=== PATIENT | female | born 1950 | race Caucasian/White ===

== ENCOUNTER → 2017-10-08 09:00 | Outpatient (CLI) | payer MEDICARE, OTHER, SELFPAY ==
[2017-10-08 12:35] LABS: Basophil# 0.02 X10^3/uL; Basophil% 0.3 % (0-1); Eosinophil# 0.09 X10^3/uL; Eosinophils% 1.3 % (0-5); Hematocrit 39.3 % (37-47); Lymphocyte % 35.4 % (19-41); Mean Corp Hgb Conc 33.1 g/gl (32-36); Mean Corpuscular Hgb 30.8 pg (27.0-32.0); Mean Corpuscular Volume 93.1 fL (81-99); Mean Platelet Vol. 10.5 fl (6.2-12.0); Monocyte# 0.49 X10^3/uL; Monocyte% 6.9 % (0-10); Neutrophil # 3.96 X10^3/uL (2.7-7.7); Platelet Count 340 K/mm3 (150-450); RBC Distribution Width CV 13.4 % (11.6-14.6); RBC Distribution Width SD 44.2 fl (35.1-43.9); Red Blood Count 4.22 M/mm3 (4.2-5.4); White Blood Count 7.1 K/mm3 (4.4-11.0)
[2017-10-08 12:40] LABS: POSITIVE COUNT NO; POSITIVE DIFFERENTIAL NO; POSITIVE MORPHOLOGY NO
[2017-10-08 13:04] LABS: AST(SGOT) 20 U/L (15-37); Alanine Aminotransfer ALT/SGPT 43 U/L (13-56); Albumin, Serum 3.7 g/dL (3.2-5.0); Alkaline Phosphatase 72 U/L (45-117); Anion Gap 9 (5-15); BUN 23 mg/dL (7-18); BUN/Creat Ratio 22.8 RATIO (10-20); Calcium,Total 8.7 mg/dL (8.5-10.1); Chloride 99 mmol/L (98-107); Creatinine, Serum 1.01 mg/dL (0.55-1.02); EST Glomerular Filtration Rate 58 mL/min (>60); Est Glom Filt Rate - Afr Amer 71 mL/min (>60); Globulin 3.7 g/dL (2.2-4.2); Glucose 83 mg/dL (70-110); Potassium 3.9 mmol/L (3.5-5.1); Protein, Total 7.4 g/dL (6.4-8.2); Sodium Level 139 mmol/L (136-145); Thyroid Stim Hormone (TSH) 0.67 uIU/mL (0.358-3.74)
[2017-10-10 07:47] LABS: Hep C Antibodies <0.1 s/co ratio (0.0-0.9)
== END ==
PROVIDERS: Family Provider Family Medicine Geriatric Medicine; PCP Family Medicine Geriatric Medicine; Visit Provider Family Medicine Geriatric Medicine
DX: I10 Essential (primary) hypertension (principal); E55.9 Vitamin D deficiency, unspecified; Z13.89 Encounter for screening for other disorder
CPT/HCPCS: 36415; 80053; 82306; 84443; 85025; 86803

== ENCOUNTER → 2018-05-02 09:48 | Outpatient (CLI) | payer MEDICARE, OTHER, SELFPAY ==
[2018-05-02 13:08] LABS: Absolute Lymphocyte Count 2.03 X10^3/ul (0.83-4.51); Absolute Neutrophil Count 4.3 X10^3/uL (2.0-7.7); Basophil# 0.01 X10^3/uL; Basophil% 0.1 % (0-1); Eosinophil# 0.07 X10^3/uL; Hematocrit 39.3 % (37-47); Hemoglobin 12.8 g/dl (12.0-15.0); Lymphocyte # 2.03 X10^3/ul (4.0); Lymphocyte % 29.3 % (19-41); Mean Corp Hgb Conc 32.6 g/gl (32-36); Mean Corpuscular Volume 95.2 fL (81-99); Mean Platelet Vol. 9.8 fl (6.2-12.0); Monocyte% 7.2 % (0-10); Neutrophil # 4.32 X10^3/uL (2.7-7.7); Neutrophil % 62.3 % (47-70); Platelet Count 317 K/mm3 (150-450); RBC Distribution Width CV 14.1 % (11.6-14.6); RBC Distribution Width SD 47.2 fl (35.1-43.9); Red Blood Count 4.13 M/mm3 (4.2-5.4); White Blood Count 6.9 K/mm3 (4.4-11.0)
[2018-05-02 13:11] LABS: POSITIVE COUNT NO; POSITIVE DIFFERENTIAL NO; POSITIVE MORPHOLOGY NO
[2018-05-02 13:36] LABS: ALB/GLOB Ratio 0.8 RATIO (0.9-2.4); AST(SGOT) 21 U/L (15-37); Alanine Aminotransfer ALT/SGPT 40 U/L (13-56); Albumin, Serum 3.4 g/dL (3.2-5.0); Alkaline Phosphatase 72 U/L (45-117); Anion Gap 7 (5-15); BUN 12 mg/dL (7-18); BUN/Creat Ratio 12.6 RATIO (10-20); Calcium,Total 8.6 mg/dL (8.5-10.1); Chloride 99 mmol/L (98-107); Creatinine, Serum 0.95 mg/dL (0.55-1.02); EST Glomerular Filtration Rate 62 mL/min (>60); Est Glom Filt Rate - Afr Amer 75 mL/min (>60); Glucose 90 mg/dL (74-106); Potassium 3.9 mmol/L (3.5-5.1); Protein, Total 7.4 g/dL (6.4-8.2); Sodium Level 137 mmol/L (136-145)
[2018-05-03 09:12] LABS: Vitamin D,25 Hydroxy 69.9 ng/mL (29.95-100.01)
== END ==
PROVIDERS: Family Provider Family Medicine Geriatric Medicine; PCP Family Medicine Geriatric Medicine; Visit Provider Family Medicine Geriatric Medicine
DX: I10 Essential (primary) hypertension (principal); E55.9 Vitamin D deficiency, unspecified
CPT/HCPCS: 36415; 80053; 82306; 84443; 85025

== ENCOUNTER → 2018-10-18 11:40 | Outpatient (CLI) | payer MEDICARE, OTHER, SELFPAY ==
[2018-10-18 13:13] LABS: Absolute Lymphocyte Count 1.71 X10^3/ul (0.83-4.51); Absolute Neutrophil Count 2.7 X10^3/uL (2.0-7.7); Basophil# 0.02 X10^3/uL; Basophil% 0.4 % (0-1); Eosinophil# 0.05 X10^3/uL; Hematocrit 40.4 % (37-47); Hemoglobin 13.2 g/dl (12.0-15.0); Lymphocyte # 1.71 X10^3/ul (4.0); Lymphocyte % 34.3 % (19-41); Mean Corp Hgb Conc 32.7 g/gl (32-36); Mean Corpuscular Hgb 30.7 pg (27.0-32.0); Mean Platelet Vol. 9.6 fl (6.2-12.0); Monocyte# 0.46 X10^3/uL; Monocyte% 9.2 % (0-10); Neutrophil # 2.74 X10^3/uL (2.7-7.7); Neutrophil % 54.9 % (47-70); POSITIVE COUNT NO; POSITIVE DIFFERENTIAL NO; POSITIVE MORPHOLOGY NO; Platelet Count 319 K/mm3 (150-450); RBC Distribution Width CV 13.8 % (11.6-14.6); RBC Distribution Width SD 45.6 fl (35.1-43.9)
[2018-10-18 13:49] LABS: Vitamin D,25 Hydroxy 83.1 ng/mL (29.95-100.01)
[2018-10-18 14:10] LABS: ALB/GLOB Ratio 0.9 RATIO (0.9-2.4); AST(SGOT) 19 U/L (15-37); Alanine Aminotransfer ALT/SGPT 46 U/L (13-56); Albumin, Serum 3.5 g/dL (3.2-5.0); Alkaline Phosphatase 65 U/L (45-117); Anion Gap 7 (5-15); BUN 19 mg/dL (7-18); BUN/Creat Ratio 18.8 RATIO (10-20); Calcium,Total 8.6 mg/dL (8.5-10.1); Chloride 98 mmol/L (98-107); Creatinine, Serum 1.01 mg/dL (0.55-1.02); EST Glomerular Filtration Rate 58 mL/min (>60); Est Glom Filt Rate - Afr Amer 70 mL/min (>60); Globulin 3.8 g/dL (2.2-4.2); Glucose 88 mg/dL (74-106); Protein, Total 7.3 g/dL (6.4-8.2); Sodium Level 136 mmol/L (136-145); Thyroid Stim Hormone (TSH) 0.52 uIU/mL (0.358-3.74)
== END ==
PROVIDERS: Family Provider Family Medicine Geriatric Medicine; PCP Family Medicine Geriatric Medicine; Visit Provider Family Medicine Geriatric Medicine
DX: I10 Essential (primary) hypertension (principal); E55.9 Vitamin D deficiency, unspecified
CPT/HCPCS: 36415; 80053; 82306; 84443; 85025

== ENCOUNTER → 2018-11-25 08:36 | Outpatient (CLI) | payer MEDICARE, OTHER, SELFPAY ==
--- NOTE | 2018-11-25 08:42 | BI_ITS ---
MAMMOGRAPHY - BILATERAL SCREENING REASON FOR EXAM: Female, 68 years old. Routine annual screening examination. PERTINENT HISTORY: TECHNIQUE: Digital bilateral breast jodi (3D mammographic acquisition) in the CC and MLO projections. 2-D mediolateral oblique (MLO) and craniocaudad (CC) views of both breasts were obtained. CAD: Full Field Digital Mammography with Computer Added Detection was performed. COMPARISON: 03/02/2017, 02/20/2017 FINDINGS: Breast Composition: There are scattered areas of fibroglandular density. There are no dominant masses or suspicious calcifications. No other significant abnormalities are identified. BI/SCREENING MAMM (CAD), BILAT IMPRESSION: Stable bilateral screening mammogram. Yearly follow-up mammogram recommended. (A) ASSESSMENT CATEGORY: BIRADS Category 2: Benign. A letter regarding these results will be sent to the patient by the facility within 30 days. Approximately 10% of breast cancers are not detected by mammography. A normal mammogram should not delay biopsy of a clinically suspicious abnormality. [id number] Electronically Signed: Erik Hoffman, at 16:59 EDT Tel , Service support ,
== END ==
PROVIDERS: Family Provider Family Medicine Geriatric Medicine; PCP Family Medicine Geriatric Medicine; Visit Provider Family Medicine Geriatric Medicine
DX: Z12.31 Encounter for screening mammogram for malignant neoplasm of breast (principal)
CPT/HCPCS: 77063; 77067

== ENCOUNTER → 2019-11-05 10:22 | Outpatient (CLI) | payer MEDICARE, OTHER, SELFPAY ==
[2019-11-05 11:51] LABS: Hematocrit 40.4 % (37-47); Hemoglobin 12.7 g/dL (12.0-15.0); Mean Corp Hgb Conc 31.4 g/dL (32-36); Mean Corpuscular Hgb 29.3 pg (27.0-32.0); Mean Corpuscular Volume 93.1 fL (81-99); Mean Platelet Vol. 9.7 fl (6.2-12.0); Neutrophil % 52.8 % (47-70); Platelet Count 334 K/mm3 (150-450); RBC Distribution Width CV 13.5 % (11.6-14.6); RBC Distribution Width SD 46.1 fl (35.1-43.9); Red Blood Count 4.34 M/mm3 (4.2-5.4); White Blood Count 6.8 K/mm3 (4.4-11.0)
[2019-11-05 11:52] LABS: Absolute Lymphocyte Count 2.71 X10^3/uL (0.83-4.51); Absolute Neutrophil Count 3.6 X10^3/uL (2.0-7.7); Basophil# 0.03 X10^3/uL; Basophil% 0.4 % (0-1); Eosinophil# 0.08 X10^3/uL; Eosinophils% 1.2 % (0-5); Lymphocyte # 2.71 X10^3/ul (4.0); Lymphocyte % 39.7 % (19-41); Monocyte# 0.38 X10^3/uL; Monocyte% 5.6 % (0-10); NRBC Flagged by Analyzer 0 % (0-5)
[2019-11-05 12:15] LABS: ALB/GLOB Ratio 0.9 RATIO (0.9-2.4); AST(SGOT) 15 U/L (15-37); Alanine Aminotransfer ALT/SGPT 37 U/L (13-56); Albumin, Serum 3.6 g/dL (3.2-5.0); Alkaline Phosphatase 71 U/L (45-117); Anion Gap 4 (5-15); BUN 15 mg/dL (7-18); BUN/Creat Ratio 14.7 RATIO (10-20); Calcium,Total 8.4 mg/dL (8.5-10.1); Chloride 101 mmol/L (98-107); Creatinine, Serum 1.02 mg/dL (0.55-1.02); EST Glomerular Filtration Rate 57 mL/min (>60); Est Glom Filt Rate - Afr Amer 69 mL/min (>60); Globulin 3.9 g/dL (2.2-4.2); Glucose 90 mg/dL (74-106); Potassium 3.8 mmol/L (3.5-5.1); Protein, Total 7.5 g/dL (6.4-8.2); Sodium Level 136 mmol/L (136-145); Thyroid Stim Hormone (TSH) 0.61 uIU/mL (0.358-3.74)
[2019-11-05 12:20] LABS: Vitamin D,25 Hydroxy 60.7 ng/mL
== END ==
PROVIDERS: PCP Family Medicine Geriatric Medicine; Visit Provider Family Medicine Geriatric Medicine
DX: I10 Essential (primary) hypertension (principal); E55.9 Vitamin D deficiency, unspecified
CPT/HCPCS: 36415; 80053; 82306; 84443; 85025

== ENCOUNTER → 2021-03-17 14:46 | Outpatient (CLI) | payer MEDICARE, OTHER, SELFPAY ==
[2021-03-17 15:50] LABS: Absolute Lymphocyte Count 2.53 X10^3/uL (0.83-4.51); Absolute Neutrophil Count 3.5 X10^3/uL (2.0-7.7); Basophil# 0.02 X10^3/uL; Basophil% 0.3 % (0-1); Eosinophil# 0.11 X10^3/uL; Eosinophils% 1.6 % (0-5); Hematocrit 39.8 % (37-47); Hemoglobin 13.1 g/dL (12.0-15.0); Lymphocyte # 2.53 X10^3/ul (0.83-4.51); Lymphocyte % 37.8 % (19-41); Mean Corp Hgb Conc 32.9 g/dL (32-36); Mean Corpuscular Hgb 30.3 pg (27.0-32.0); Mean Corpuscular Volume 91.9 fL (81-99); Mean Platelet Vol. 9.5 fl (6.2-12.0); Monocyte# 0.51 X10^3/uL; Monocyte% 7.6 % (0-10); NRBC Flagged by Analyzer 0 % (0-5); Neutrophil % 52.4 % (47-70); Platelet Count 373 K/mm3 (150-450); RBC Distribution Width CV 13.6 % (11.6-14.6); RBC Distribution Width SD 46.2 fl (35.1-43.9); Red Blood Count 4.33 M/mm3 (4.2-5.4); White Blood Count 6.7 K/mm3 (4.4-11.0)
[2021-03-17 16:05] LABS: Vitamin D,25 Hydroxy 33.4 ng/mL
[2021-03-17 16:11] LABS: AST(SGOT) 20 U/L (15-37); Alanine Aminotransfer ALT/SGPT 43 U/L (13-56); Albumin, Serum 3.7 g/dL (3.2-5.0); Alkaline Phosphatase 88 U/L (45-117); Anion Gap 4 (5-15); BUN 19 mg/dL (7-18); BUN/Creat Ratio 18.1 RATIO (10-20); Calcium,Total 9.3 mg/dL (8.5-10.1); Chloride 97 mmol/L (98-107); Creatinine, Serum 1.05 mg/dL (0.55-1.02); EST Glomerular Filtration Rate 55 mL/min (>60); Est Glom Filt Rate - Afr Amer 67 mL/min (>60); Globulin 3.7 g/dL (2.2-4.2); Glucose 93 mg/dL (74-106); Potassium 3.5 mmol/L (3.5-5.1); Protein, Total 7.4 g/dL (6.4-8.2); Sodium Level 138 mmol/L (136-145); Thyroid Stim Hormone (TSH) 0.73 uIU/mL (0.358-3.74); Uric Acid 8.3 mg/dL (2.6-6.0)
== END ==
PROVIDERS: PCP Family Medicine Geriatric Medicine; Visit Provider Family Medicine Geriatric Medicine
DX: I10 Essential (primary) hypertension (principal); M10.9 Gout, unspecified; E55.9 Vitamin D deficiency, unspecified
CPT/HCPCS: 36415; 80053; 82306; 84443; 84550; 85025

== ENCOUNTER → 2021-04-22 13:52 | Outpatient (CLI) | payer MEDICARE, OTHER, SELFPAY ==
--- NOTE | 2021-04-22 13:55 | BI_ITS ---
MAMMOGRAPHY - BILATERAL SCREENING REASON FOR EXAM: Female, 70 years old. Routine annual screening examination. PERTINENT HISTORY: Non-contributory. TECHNIQUE: Digital bilateral breast carl (3D mammographic acquisition) in the CC and MLO projections. 2-D mediolateral oblique (MLO) and craniocaudad (CC) views of both breasts were obtained. CAD: Full Field Digital Mammography with Computer Added Detection was performed. COMPARISON: Comparison is made with prior examination dated 11/25/2018. FINDINGS: Breast Composition: There are scattered areas of fibroglandular density. There are no dominant masses or suspicious calcifications. Stable 8 mm x 9 mm well-defined nodule in the superior lateral retroareolar region of the right breast. Correlation with ultrasound is recommended for further evaluation. No other significant abnormalities are identified. There has been no significant change since the prior study. BI/SCRN MAMM (CAD)W/CARL BILAT IMPRESSION: Stable bilateral screening mammogram. Correlation with ultrasound of the 8 mm x 9 mm nodule in the superior lateral retroareolar areolar region of the right breast. ASSESSMENT CATEGORY: BIRADS Category 0: Incomplete. Need additional imaging evaluation. A letter regarding these results will be sent to the patient by the facility within 30 days. Approximately 10% of breast cancers are not detected by mammography. A normal mammogram should not delay biopsy of a clinically suspicious abnormality. [id number] Electronically Signed: Luther Howell MD at 15:38 EDT , Service support ,
== END ==
PROVIDERS: PCP Family Medicine Geriatric Medicine; Referring Provider Family Medicine Geriatric Medicine; Visit Provider Family Medicine Geriatric Medicine
DX: Z12.31 Encounter for screening mammogram for malignant neoplasm of breast (principal)
CPT/HCPCS: 77063; 77067

== ENCOUNTER → 2021-04-26 14:59 | Outpatient (CLI) | payer MEDICARE, OTHER, SELFPAY ==
--- NOTE | 2021-04-26 15:01 | US_ITS ---
STUDY: ULTRASOUND BREAST - RIGHT REASON FOR EXAM: Female, 70 years old. Abnormal screening mammogram. TECHNIQUE: Axial and longitudinal images of the RIGHT breast were performed with a high resolution ultrasound transducer. # OF IMAGES: 34 COMPARISON: Comparison is made with prior mammogram dated 04/22/2021 and prior sonogram of the right breast dated 03/02/2017. FINDINGS: RIGHT Breast: The mammographic abnormality corresponds to a 7 mm x 6 mm x 3 mm cyst in the retroareolar region of the breast. US/Breast Limited Unilateral IMPRESSION: 7 mm x 6 mm x 3 mm retroareolar cyst. ASSESSMENT CATEGORY: BIRADS Category 2: Benign. A letter regarding these results will be sent to the patient by the facility within 30 days. Electronically Signed: Luther Howell MD at 15:45 EDT , Service support ,
== END ==
PROVIDERS: PCP Family Medicine Geriatric Medicine; Referring Provider Family Medicine Geriatric Medicine; Visit Provider Family Medicine Geriatric Medicine
DX: N60.01 Solitary cyst of right breast (principal)
CPT/HCPCS: 76642

== ENCOUNTER → 2022-03-20 | Outpatient (CLI) | payer MEDICARE, OTHER, SELFPAY ==
[2022-03-20 12:28] LABS: Absolute Lymphocyte Count 2.29 X10^3/uL (0.83-4.51); Absolute Neutrophil Count 4.3 X10^3/uL (2.0-7.7); Basophil# 0.03 X10^3/uL; Basophil% 0.4 % (0-1); Eosinophil# 0.07 X10^3/uL; Hematocrit 40.1 % (37-47); Hemoglobin 13.4 g/dL (12.0-15.0); Lymphocyte # 2.29 X10^3/ul (0.83-4.51); Lymphocyte % 31.2 % (19-41); Mean Corp Hgb Conc 33.4 g/dL (32-36); Mean Corpuscular Hgb 30.5 pg (27.0-32.0); Mean Corpuscular Volume 91.3 fL (81-99); Mean Platelet Vol. 9.8 fl (6.2-12.0); Monocyte# 0.58 X10^3/uL; Monocyte% 7.9 % (0-10); NRBC Flagged by Analyzer 0 % (0-5); Neutrophil # 4.34 X10^3/uL (2.7-7.7); Neutrophil % 59.1 % (47-70); Platelet Count 392 K/mm3 (150-450); RBC Distribution Width CV 13.1 % (11.6-14.6); RBC Distribution Width SD 44.1 fl (35.1-43.9); Red Blood Count 4.39 M/mm3 (4.2-5.4); White Blood Count 7.3 K/mm3 (4.4-11.0)
[2022-03-20 13:12] LABS: ALB/GLOB Ratio 0.9 RATIO (0.9-2.4); AST(SGOT) 18 U/L (15-37); Alanine Aminotransfer ALT/SGPT 38 U/L (13-56); Albumin, Serum 3.7 g/dL (3.2-5.0); Alkaline Phosphatase 68 U/L (45-117); Anion Gap 9 (5-15); BUN 18 mg/dL (7-18); BUN/Creat Ratio 17.5 RATIO (10-20); Calcium,Total 9.4 mg/dL (8.5-10.1); Chloride 92 mmol/L (98-107); Creatinine, Serum 1.03 mg/dL (0.55-1.02); EST Glomerular Filtration Rate 56 mL/min (>60); Est Glom Filt Rate - Afr Amer 68 mL/min (>60); Glucose 92 mg/dL (74-106); Potassium 3.9 mmol/L (3.5-5.1); Protein, Total 7.7 g/dL (6.4-8.2); Sodium Level 131 mmol/L (136-145); Thyroid Stim Hormone (TSH) 0.77 uIU/mL (0.358-3.74); Uric Acid 7.6 mg/dL (2.6-6.0)
[2022-03-20 13:21] LABS: Vitamin D,25 Hydroxy 42.3 ng/mL
== END | disposition home or self-care (01) ==
LOC: POLAB3 10:44
PROVIDERS: PCP Family Medicine Geriatric Medicine; Visit Provider Family Medicine Geriatric Medicine
DX: I10 Essential (primary) hypertension (principal); M10.9 Gout, unspecified; E55.9 Vitamin D deficiency, unspecified
CPT/HCPCS: 36415; 80053; 82306; 84443; 84550; 85025

== ENCOUNTER → 2022-04-25 | Outpatient (CLI) | payer MEDICARE, OTHER, SELFPAY ==
--- NOTE | 2022-04-25 10:23 | BI_ITS ---
MAMMOGRAPHY - BILATERAL SCREENING 3-D TOMOSYNTHESIS REASON FOR EXAM: Female, 71 years old. SCREENING PERTINENT HISTORY: No significant family history. TECHNIQUE: 2-D mammograms and 3-D Tomosynthesis of the breast (s) were performed. CAD was performed. COMPARISON: 04/22/2021 FINDINGS: The breast composition is composed of scattered fibroglandular density. Scattered benign calcifications are seen. 1 cm oval obscured equal density mass in the upper-outer quadrant right breast at mid depth and focal compression views are recommended for further evaluation. No dominant mass left breast. No suspicious calcifications.. No architectural distortion is identified. There is no skin thickening or retraction. BI/SCRN MAMM (CAD)W/CARL BILAT IMPRESSION: 1 cm oval obscured equal density mass in the upper-outer quadrant right breast at mid depth and focal compression views recommended for further evaluation. ASSESSMENT CATEGORY: BIRADS Category 0: Incomplete. Need additional imaging evaluation as above. A letter regarding these results will be sent to the patient by the facility within 30 days. FOLLOW UP RECOMMENDATION: Additional imaging recommended as above. (E) Approximately 10% of breast cancers are not detected by mammography. A normal mammogram should not delay biopsy of a clinically suspicious abnormality. Electronically Signed: Ceasar Crouch MD at 16:34 EDT ,
== END | disposition home or self-care (01) ==
LOC: OPBI 10:21
PROVIDERS: PCP Family Medicine Geriatric Medicine; Visit Provider Family Medicine Geriatric Medicine
DX: Z12.31 Encounter for screening mammogram for malignant neoplasm of breast (principal)
CPT/HCPCS: 77063; 77067

== ENCOUNTER → 2022-05-05 | Outpatient (CLI) | payer MEDICARE, OTHER, SELFPAY ==
--- NOTE | 2022-05-05 09:14 | US_ITS ---
STUDY: ULTRASOUND BREAST - RIGHT REASON FOR EXAM: Female, 71 years old. Abnormal screening mammogram. TECHNIQUE: Axial and longitudinal images of the RIGHT breast were performed with a high resolution ultrasound transducer. # OF IMAGES: 12 COMPARISON: Comparison is made with prior mammogram done earlier in the day as well as prior mammogram dated 04/25/2022. Comparison is also made with prior ultrasound of the right breast dated 04/26/2021. FINDINGS: RIGHT Breast: There is a 1 cm x 0.7 cm x 0.5 cm cyst in the retroareolar region of the breast. This has increased mildly in size as compared to prior study. US/Breast Limited Unilateral IMPRESSION: 1 cm x 0.7 cm x 0.5 cm cyst in the retroareolar region of the right breast. This has increased slightly in size as compared to prior study. ASSESSMENT CATEGORY: BIRADS Category 2: Benign. A letter regarding these results will be sent to the patient by the facility within 30 days. Electronically Signed: Luther Howell MD at 11:10 EDT ,
--- NOTE | 2022-05-05 09:14 | BI_ITS ---
MAMMOGRAPHY - UNILATERAL DIAGNOSTIC: RIGHT BREAST REASON FOR EXAM: Female, 71 years old. Abnormal screening mammogram. PERTINENT HISTORY: Non-contributory. TECHNIQUE: Compression spot views of the right breast were obtained in the mediolateral oblique and craniocaudad projections. CAD: Full Field Digital Mammography with Computer Added Detection was performed. COMPARISON: Comparison is made with prior mammogram dated 04/25/2022. FINDINGS: Breast Composition: There are scattered areas of fibroglandular density. Stable 1 cm nodular density in the upper outer aspect of the right breast. Correlation with ultrasound is recommended. No other significant abnormalities are identified. BI/DIAG MAMM W/CAD, UNILAT IMPRESSION: Stable 1 cm nodular density in the upper slightly lateral aspect of the right breast. Correlation with ultrasound is recommended. ASSESSMENT CATEGORY: BIRADS Category 0: Incomplete. Need additional imaging evaluation. A letter regarding these results will be sent to the patient by the facility within 30 days. Approximately 10% of breast cancers are not detected by mammography. A normal mammogram should not delay biopsy of a clinically suspicious abnormality. Electronically Signed: Luther Howell MD at 13:17 EDT ,
== END | disposition home or self-care (01) ==
LOC: OPBI 09:12
PROVIDERS: PCP Family Medicine Geriatric Medicine; Visit Provider Family Medicine Geriatric Medicine
DX: R92.8 Other abnormal and inconclusive findings on diagnostic imaging of breast (principal); N60.01 Solitary cyst of right breast
CPT/HCPCS: 76642; 77061; 77065; G0279

== ENCOUNTER → 2023-03-27 | Outpatient (CLI) | payer MEDICARE, OTHER, SELFPAY ==
[2023-03-27 13:04] LABS: Absolute Lymphocyte Count 2.06 X10^3/uL (0.83-4.51); Absolute Neutrophil Count 3.2 X10^3/uL (2.0-7.7); Basophil# 0.03 X10^3/uL; Basophil% 0.5 % (0-1); Eosinophil# 0.07 X10^3/uL; Eosinophils% 1.2 % (0-5); Hematocrit 40.9 % (37-47); Hemoglobin 13.5 g/dL (12.0-15.0); Lymphocyte # 2.06 X10^3/ul (0.83-4.51); Lymphocyte % 35.7 % (19-41); Mean Corpuscular Hgb 30.4 pg (27.0-32.0); Mean Corpuscular Volume 92.1 fL (81-99); Mean Platelet Vol. 9.4 fl (6.2-12.0); Monocyte% 6.9 % (0-10); NRBC Flagged by Analyzer 0 % (0-5); Neutrophil # 3.18 X10^3/uL (2.7-7.7); Neutrophil % 55.2 % (47-70); Platelet Count 363 K/mm3 (150-450); RBC Distribution Width SD 47.1 fl (35.1-43.9); Red Blood Count 4.44 M/mm3 (4.2-5.4); White Blood Count 5.8 K/mm3 (4.4-11.0)
[2023-03-27 13:19] LABS: Vitamin D,25 Hydroxy 50.2 ng/mL
[2023-03-27 13:29] LABS: AST(SGOT) 24 U/L (15-37); Alanine Aminotransfer ALT/SGPT 40 U/L (13-56); Albumin, Serum 3.7 g/dL (3.2-5.0); Alkaline Phosphatase 70 U/L (45-117); Anion Gap 8 (5-15); BUN 15 mg/dL (7-18); BUN/Creat Ratio 14.3 RATIO (10-20); Calcium,Total 9.2 mg/dL (8.5-10.1); Chloride 93 mmol/L (98-107); Creatinine, Serum 1.05 mg/dL (0.55-1.02); EST Glomerular Filtration Rate 55 mL/min (>60); Est Glom Filt Rate - Afr Amer 66 mL/min (>60); Globulin 3.8 g/dL (2.2-4.2); Glucose 95 mg/dL (74-106); Potassium 3.3 mmol/L (3.5-5.1); Protein, Total 7.5 g/dL (6.4-8.2); Sodium Level 134 mmol/L (136-145); Thyroid Stim Hormone (TSH) 0.66 uIU/mL (0.358-3.74)
== END | disposition home or self-care (01) ==
LOC: POLAB3 10:52
PROVIDERS: PCP Family Medicine Geriatric Medicine; Visit Provider Family Medicine Geriatric Medicine
DX: I10 Essential (primary) hypertension (principal); E55.9 Vitamin D deficiency, unspecified
CPT/HCPCS: 36415; 80053; 82306; 84443; 85025

== ENCOUNTER → 2023-04-10 | Outpatient (CLI) | payer MEDICARE, OTHER, SELFPAY ==
[2023-04-10 11:37] LABS: Anion Gap 4 (5-15); BUN 14 mg/dL (7-18); BUN/Creat Ratio 14.5 RATIO (10-20); Calcium,Total 8.8 mg/dL (8.5-10.1); Chloride 96 mmol/L (98-107); Creatinine, Serum 0.97 mg/dL (0.55-1.02); EST Glomerular Filtration Rate 60 mL/min (>60); Est Glom Filt Rate - Afr Amer 73 mL/min (>60); Glucose 92 mg/dL (74-106); Sodium Level 133 mmol/L (136-145)
== END | disposition home or self-care (01) ==
PROVIDERS: PCP Family Medicine Geriatric Medicine; Referring Provider Family Medicine Geriatric Medicine; Visit Provider Family Medicine Geriatric Medicine
DX: E87.6 Hypokalemia (principal)
CPT/HCPCS: 36415; 80048

== ENCOUNTER → 2024-03-31 | Outpatient (CLI) | payer MEDICARE, OTHER, SELFPAY ==
[2024-03-31 12:33] LABS: Absolute Lymphocyte Count 2.02 X10^3/uL (0.83-4.51); Absolute Neutrophil Count 4.1 X10^3/uL (2.0-7.7); Basophil# 0.04 X10^3/uL; Basophil% 0.6 % (0-1); Eosinophil# 0.06 X10^3/uL; Eosinophils% 0.9 % (0-5); Hematocrit 39.4 % (37-47); Lymphocyte # 2.02 X10^3/ul (0.83-4.51); Lymphocyte % 30.1 % (19-41); Mean Corpuscular Hgb 29.7 pg (27.0-32.0); Mean Corpuscular Volume 90.2 fL (81-99); Mean Platelet Vol. 9.6 fl (6.2-12.0); Monocyte% 7.4 % (0-10); NRBC Flagged by Analyzer 0 % (0-5); Neutrophil # 4.07 X10^3/uL (2.7-7.7); Neutrophil % 60.6 % (47-70); Platelet Count 332 K/mm3 (150-450); RBC Distribution Width CV 13.4 % (11.6-14.6); RBC Distribution Width SD 43.9 fl (35.1-43.9); Red Blood Count 4.37 M/mm3 (4.2-5.4); White Blood Count 6.7 K/mm3 (4.4-11.0)
[2024-03-31 12:57] LABS: Vitamin D,25 Hydroxy 40.4 ng/mL
[2024-03-31 13:06] LABS: ALB/GLOB Ratio 1.1 RATIO (0.9-2.4); AST(SGOT) 27 U/L (15-37); Alanine Aminotransfer ALT/SGPT 35 U/L (13-56); Albumin, Serum 3.6 g/dL (3.2-5.0); Alkaline Phosphatase 64 U/L (45-117); Anion Gap 6 (5-15); BUN 16 mg/dL (7-18); BUN/Creat Ratio 16.2 RATIO (10-20); Calcium,Total 9.2 mg/dL (8.5-10.1); Chloride 90 mmol/L (98-107); Creatinine, Serum 0.99 mg/dL (0.55-1.02); EST Glomerular Filtration Rate 59 mL/min (>60); Est Glom Filt Rate - Afr Amer 71 mL/min (>60); Globulin 3.3 g/dL (2.2-4.2); Glucose 93 mg/dL (74-106); Potassium 4.6 mmol/L (3.5-5.1); Protein, Total 6.9 g/dL (6.4-8.2); Sodium Level 128 mmol/L (136-145); Thyroid Stim Hormone (TSH) 0.49 uIU/mL (0.358-3.74)
== END | disposition home or self-care (01) ==
LOC: POLAB3 10:39
PROVIDERS: PCP Family Medicine Geriatric Medicine; Visit Provider Family Medicine Geriatric Medicine
DX: I10 Essential (primary) hypertension (principal); E55.9 Vitamin D deficiency, unspecified
CPT/HCPCS: 36415; 80053; 82306; 84443; 85025

== ENCOUNTER → 2024-04-03 | Outpatient (CLI) | payer MEDICARE, OTHER, SELFPAY ==
[2024-04-03 16:13] LABS: Anion Gap 6 (5-15); BUN 18 mg/dL (7-18); BUN/Creat Ratio 19.5 RATIO (10-20); Calcium,Total 9.3 mg/dL (8.5-10.1); Chloride 94 mmol/L (98-107); Creatinine, Serum 0.92 mg/dL (0.55-1.02); EST Glomerular Filtration Rate 64 mL/min (>60); Est Glom Filt Rate - Afr Amer 77 mL/min (>60); Glucose 95 mg/dL (74-106); Potassium 3.7 mmol/L (3.5-5.1); Sodium Level 132 mmol/L (136-145)
[2024-04-03 17:22] LABS: Osmolality, Serum 288 mOsm/KG (280-301)
== END | disposition home or self-care (01) ==
LOC: LAB 14:01
PROVIDERS: PCP Family Medicine Geriatric Medicine; Visit Provider Family Medicine Geriatric Medicine
DX: E87.1 Hypo-osmolality and hyponatremia (principal); E78.5 Hyperlipidemia, unspecified
CPT/HCPCS: 36415; 80048; 83930

== ENCOUNTER → 2024-04-04 | Outpatient (CLI) | payer MEDICARE, OTHER, SELFPAY ==
[2024-04-04 12:39] LABS: Urine Sodium 51 mmol/L (Not Establ.)
[2024-04-04 13:09] LABS: Osmolality, Urine 320 mOsm/KG
== END | disposition home or self-care (01) ==
LOC: LABSPEC 11:57
PROVIDERS: PCP Family Medicine Geriatric Medicine; Referring Provider Family Medicine Geriatric Medicine; Visit Provider Family Medicine Geriatric Medicine
DX: E78.5 Hyperlipidemia, unspecified (principal); E87.1 Hypo-osmolality and hyponatremia
CPT/HCPCS: 83935; 84300

== ENCOUNTER → 2025-04-01 | Outpatient (CLI) | payer MEDICARE, OTHER, SELFPAY ==
[2025-04-01 09:58] LABS: Hematocrit 38.2 % (37-47); Hemoglobin 13.1 g/dL (12.0-15.0); Immature Granulocytes Count 0.010 X10^3/uL (0.0-0.0); Mean Corp Hgb Conc 34.3 g/dL (32-36); Mean Corpuscular Volume 88.2 fL (81-99); Mean Platelet Vol. 8.9 fl (6.2-12.0); NRBC Flagged by Analyzer 0 % (0-5); Platelet Count 344 K/mm3 (150-450); RBC Distribution Width CV 13.5 % (11.6-14.6); RBC Distribution Width SD 44.0 fl (35.1-43.9); Red Blood Count 4.33 M/mm3 (4.2-5.4); White Blood Count 6.4 K/mm3 (4.4-11.0)
[2025-04-01 11:30] LABS: AST(SGOT) 37 U/L (<=31); Alanine Aminotransfer ALT/SGPT 44 U/L (<=34); Albumin, Serum 4.1 g/dL (3.4-4.8); Alkaline Phosphatase 76 U/L (35-104); Anion Gap 12 (5-15); BUN 15 mg/dL (4-19); BUN/Creat Ratio 17.1 RATIO (10-20); Calcium,Total 9.0 mg/dL (7.6-11.0); Carbon Dioxide 28.4 mmol/L (21.0-32.0); Chloride 90 mmol/L (98-108); Globulin 2.9 g/dL (2.2-4.2); Glucose 96 mg/dL (70-99); Potassium 3.9 mmol/L (3.3-5.1); Vitamin D,25 Hydroxy 31.0 ng/mL (30-100)
[2025-04-01 17:49] LABS: Xtra Tube Kwok EXTRA TUBE
--- OUTSIDE RECORDS SUMMARY | 2025-04-01 18:04 | XMS RPT_ITS | CCD ---
Author Organization [facility] Care Team Providers Care School Bus Operator Name Role Phone SWAPNA WILD Attending Unavailable Jose, Kyle-chi Referring Unavailable Jose, Kyle-chi Primary Care Unavailable Unavailable Primary Care Provider Sana Glasgow MD Unavailable Evan Devi Unavailable Jose, Kyle Chi Attending Unavailable Jose, Kyle Chi Primary Care Unavailable Jose, Kyle Chi Attending Unavailable Jose, Kyle Chi Primary Care Unavailable Jose, Kyle Chi Referring Unavailable Jose, Kyle Chi Primary Care Unavailable Jose, Kyle Chi Attending Unavailable Allergies Allergy Classification Reported Allergen(s) Allergy Type Date of Onset Reaction(s) Facility (3 sources) Aluminum aspirin; Translations: [ASPIRIN] Drug Allergy 9 [place], [place] (5 sources) Hmg-Coa Reductase Inhibitors (Statins) Propensity to adverse reactions to drug 0 [place], [place] (5 sources) Latex; Translations: [LATEX] Propensity to adverse reactions to drug 0 [place], [place] (5 sources) Aspirin Drug Allergy 0 [facility] Work Phone: (2 sources) House dust mite; Translations: [DUST MITES] allergy to substance 0 [facility] Work Phone: (2 sources) Iodine Drug Allergy 0 [facility] Work Phone: (2 sources) Mold Extract; Translations: [MOLD] Drug Allergy 0 [facility] Work Phone: (2 sources) peanut; Translations: [PEANUTS] food allergy 0 [facility] Work Phone: (2 sources) Shellfish; Translations: [SHELLFISH] food allergy 0 [facility] Work Phone: (2 sources) Soy protein; Translations: [SOY] food allergy 0 [facility] Work Phone: (2 sources) STINGING INSECTS; Translations: [STINGING INSECTS] allergy to substance 0 [facility] Work Phone: Medications Current Medications Medication Drug Class(es) Dates Sig (Normalized) Sig (Original) benazepril hydrochloride 20 mg / hydroCHLOROthiazide 12.5 mg oral tablet (2 sources) Thiazide Diuretic, Angiotensin Converting Enzyme Inhibitor take 1 tablet by mouth once daily benazepril-hydro chlorthiazide (LOTENSIN HCT) 20-12.5 MG per tablet Take 1 tablet by mouth daily 0 Active Completed/Discontinued Medications Medication Drug Class(es) Dates Sig (Normalized) Sig (Original) acetaminophen 325 mg / HYDROcodone bitartrate 5 mg oral tablet (2 sources) Opioid Agonist Start: 08-25-2020 End: 09-03-2020 take 1 tablet by mouth every six hours as needed for pain NORCO 5-325 MG TABS Take 1 tablet by mouth every 6 hours as needed for pain HYDROCODONE-ACETAMI NOPHEN [id number] Evan REYES ascorbic acid 1000 mg oral tablet (3 sources) Vitamin C Start: 07-12-2020 VITAMIN C 1000 MG TABS 1 tablet as needed as directed ASCORBIC ACID [id number] Renuka Solitario BILBERRY (VACCINIUM MYRTILLUS) CAPS (2 sources) Start: 07-12-2020 BILBERRY CAPS as directed as needed BILBERRY (VACCINIUM MYRTILLUS) CAPS [id number] Yamile Solares LPN cholecalciferol 1000 unt oral tablet (3 sources) Vitamin D Start: 07-12-2020 VITAMIN D3 25 MCG (1000 UT) TABS 1 tablet once daily CHOLECALCIFEROL [id number] Renuka Kassi hydroCHLOROthiazide 12.5 mg / lisinopril 10 mg oral tablet (3 sources) Thiazide Diuretic, Angiotensin Converting Enzyme Inhibitor Start: 07-12-2020 LISINOPRIL-HYDROCHL OROTHIAZIDE 10-12.5 MG TABS 1 tablet twice daily LISINOPRIL-HYDROCHL OROTHIAZIDE [id number] Renuka Solitario Lysine (2 sources) Start: 07-12-2020 L-LYSINE TABS as directed as needed LYSINE TABS [id number] Yamile Solares LPN MULTIPLE VITAMINS-MINERALS (1 source) Start: 07-12-2020 ONE DAILY MULTIVITAMIN ADULT TABS 1 tablet once daily MULTIPLE VITAMINS-MINERALS [id number] Renuka Solitario MULTIPLE VITAMINS-MINERALS (2 sources) Start: 07-12-2020 MULTIVITAMIN ADULT TABS as directed MULTIPLE VITAMINS-MINERALS [id number] Yamile Solares LPN ondansetron 4 mg oral tablet (1 source) Serotonin-3 Receptor Antagonist Start: 08-19-2020 ONDANSETRON HCL 4 MG TABS Take 1 tab by mouth every 6-8 hours as needed for nausea ONDANSETRON HCL [id number] Sana Soto MD Problems Active Problems Problem Classification Problem Date Documented Da te Episodic/Chronic Acquired foot deformities (3 sources) Acquired hallux valgus; Translations: [Hallux valgus (acquired), left foot] Onset: 07-12-2020 07-12-2020 Chronic Acquired foot deformities (3 sources) Acquired hallux valgus; Translations: [Hallux valgus (acquired), right foot] Onset: 07-12-2020 07-12-2020 Chronic Acquired foot deformities (3 sources) Acquired pes planus; Translations: [Flat foot [pes 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), left foot] Onset: 07-12-2020 07-12-2020 Acquired foot deformities (3 sources) Acquired pes planus; Translations: [Flat foot [pes 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), right foot] Onset: 07-12-2020 07-12-2020 Disorders of lipid metabolism (1 source) Hyperlipidemia, unspecified; Translations: [Hyperlipidemia, unspecified] Onset: 04-29-2024 Chronic Essential hypertension (1 source) Essential (primary) hypertension; Translations: [Essential (primary) hypertension] Onset: 04-23-2024 Chronic Fluid and electrolyte disorders (1 source) Hypo-osmolality and hyponatremia; Translations: [Hypo-osmolality and hyponatremia] Onset: 04-25-2024 Episodic Other acquired deformities (3 sources) Equinus contracture of the ankle; Translations: [Contracture, right ankle] Onset: 07-12-2020 07-12-2020 Chronic Other connective tissue disease (1 source) Plantar fascial fibromatosis; 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 Other non-traumatic joint disorders (2 sources) Arthritis of midtarsal joint; Translations: [Primary osteoarthritis, unspecified ankle and foot] Onset: 07-26-2020 07-26-2020 Chronic Other non-traumatic joint disorders (1 source) Acute ankle pain; Translations: [Acute right ankle pain] Episodic Other nutritional; endocrine; and metabolic disorders (3 sources) Body mass index 30+ - obesity; Translations: [Obesity, unspecified] Onset: 07-12-2020 07-12-2020 Chronic Past or Other Problems Problem Classification Problem Date Documented Da te Episodic/Chronic Other connective tissue disease (3 sources) Rupture of posterior tibial tendon; Translations: [Strain of other muscle(s) and tendon(s) of posterior muscle group at lower leg level, right leg, initial encounter] Onset: 07-12-2020 07-12-2020 Episodic Unclassified (3 sources) Problem Results Test Name Value Interpretation Reference Range Facility Osmolality, Urineon 04-04-20 24 OSMOLALITY,UR 320 mOsm/KG Normal [facility] Comment on above: Result Comment: Normal Urine Reference Ranges Random: 50 - 1200 mOsm/kg H20 depending on fluid intake Random: >850 mOsm/kg after 12 hour fluid restriction 24 hour: 300 - 900 mOsm/kg H2O Performed By: #### L 883.3611, L501.7400 #### [facility] [address] [place], [address] Urine Sodiumon 04-04-2024 Sodium (U) [Moles/Vol] 51 mmol/L Normal Not Establ. [facility] Comment on above: Performed By: #### L 392.0190, L501.7400 #### [facility] [address] [place], [address] Basic Metabolic Profile (BMP )on 04-03-2024 BUN/CRE 19.5 RATIO Normal 10-20 [facility] Comment on above: Performed By: #### L 501.7300, L500.2500 #### [facility] [address] [place], [address] CA,Total 9.3 mg/dL Normal 8.5-10.1 [facility] Comment on above: Performed By: #### L 501.7300, L500.2500 #### [facility] [address] [place], [address] Chloride [Moles/Vol] 94 mmol/L Low 98-107 [facility] Comment on above: Performed By: #### L 501.7300, L500.2500 #### [facility] [address] [place], [address] CO2 [Moles/Vol] 32.0 mmol/L Normal 21.0-32.0 [facility] Comment on above: Performed By: #### L 501.7300, L500.2500 #### [facility] [address] [place], [address] Creatinine [Mass/Vol] 0.92 mg/dL Normal 0.55-1.02 [facility] Comment on above: Result Comment: The validity of the calculated GFR GFRAA in patients over 70 years has not been determined. Clinical correlation is essential. Performed By: #### L 501.7300, L500.2500 #### [facility] [address] [place], [address] EST GFR - AA 77 mL/min Normal >60 [facility] Comment on above: Result Comment: Afri can Finnish GFR Calc Performed By: #### L 501.7300, L500.2500 #### [facility] [address] [place], [address] GAP 6 Normal 5-15 [facility] Comment on above: Performed By: #### L 501.7300, L500.2500 #### [facility] [address] [place], [address] GFR/1.73 sq M.predicted among non-blacks MDRD (S/P/Bld) [Vol rate/Area] 64 mL/min/{1.73_m2} Normal >60 [facility] Comment on above: Result Comment: Non- GFR Calc Performed By: #### L 501.7300, L500.2500 #### [facility] [address] [place], [address] Glucose [Mass/Vol] 95 mg/dL Normal 74-106 [facility] Comment on above: Performed By: #### L 501.7300, L500.2500 #### [facility] [address] [place], [address] Potassium [Moles/Vol] 3.7 mmol/L Normal 3.5-5.1 [facility] Comment on above: Performed By: #### L 501.7300, L500.2500 #### [facility] [address] [place], [address] Sodium [Moles/Vol] 132 mmol/L Low 136-145 [facility] Comment on above: Performed By: #### L 501.7300, L500.2500 #### [facility] [address] [place], [address] Urea nitrogen [Mass/Vol] 18 mg/dL Normal 7-18 [facility] Comment on above: Performed By: #### L 501.7300, L500.2500 #### [facility] [address] [place], [address] Osmolality, Serumon 04-03-20 24 OSMOLALITY,SER 288 mOsm/KG Normal 280-301 [facility] Comment on above: Performed By: #### L 501.7300, L500.2500 #### [facility] [address] [place], [address] CBC W/Diff, Automatedon 07-2 Absolute Lymph 2.02 X10 3/uL Normal 0.83-4.51 [facility] Comment on above: Performed By: #### L 100.0100, L506.1000, L500.4050, L501.9520 #### [facility] [address] [place], [address] Absolute Neut 4.1 X10 3/uL Normal 2.0-7.7 [facility] Comment on above: Performed By: #### L 100.0100, L506.1000, L500.4050, L501.9520 #### [facility] [address] [place], [address] Basophils/100 WBC (Bld) 0.6 % Normal 0-1 [facility] Comment on above: Performed By: #### L 100.0100, L506.1000, L500.4050, [id number] #### [facility] [address] [place], [address] Eosinophils/100 WBC (Bld) 0.9 % Normal 0-5 [facility] Comment on above: Performed By: #### L 100.0100, L506.1000, L500.4050, [id number] #### [facility] [address] [place], [address] Erythrocyte distribution width (RBC) [Ratio] 13.4 % Normal 11.6-14.6 [facility] Comment on above: Performed By: #### L 100.0100, L506.1000, L500.4050, L501.9520 #### [facility] [address] [place], [address] Hematocrit (Bld) [Volume fraction] 39.4 % Normal 37-47 [facility] Comment on above: Performed By: #### L 100.0100, L506.1000, L500.4050, [id number] #### [facility] [address] [place], [address] Hemoglobin (Bld) [Mass/Vol] 13.0 g/dL Normal 12.0-15.0 [facility] Comment on above: Performed By: #### L 100.0100, L506.1000, L500.4050, L501.9520 #### [facility] [address] [place], [address] IG% 0.400 Normal 0.0-0.9 [facility] Comment on above: Result Comment: IG% - Immature Granulocytes (promyelocytes, myelocytes and metamyelocytes) > 1% indicates that a LEFT SHIFT is Present. Performed By: #### L 100.0100, L506.1000, L500.4050, L501.9520 #### [facility] [address] [place], [address] Lymphocytes/100 WBC (Bld) 30.1 % Normal 19-41 [facility] Comment on above: Performed By: #### L 100.0100, L506.1000, L500.4050, [id number] #### [facility] [address] [place], [address] MCH (RBC) [Entitic mass] 29.7 pg Normal 27.0-32.0 [facility] Comment on above: Performed By: #### L 100.0100, L506.1000, L500.4050, L501.9520 #### [facility] [address] [place], [address] MCHC (RBC) [Mass/Vol] 33.0 g/dL Normal 32-36 [facility] Comment on above: Performed By: #### L 100.0100, L506.1000, L500.4050, L501.9520 #### [facility] [address] [place], [address] MCV (RBC) [Entitic vol] 90.2 fL Normal 81-99 [facility] Comment on above: Performed By: #### L 100.0100, L506.1000, L500.4050, [id number] #### [facility] [address] [place], [address] Monocytes/100 WBC (Bld) 7.4 % Normal 0-10 [facility] Comment on above: Performed By: #### L 100.0100, L506.1000, L500.4050, [id number] #### [facility] [address] [place], [address] Neutrophils/100 WBC (Bld) 60.6 % Normal 47-70 [facility] Comment on above: Performed By: #### L 100.0100, L506.1000, L500.4050, [id number] #### [facility] [address] [place], [address] Nucleated RBC (Bld) [#/Vol] 0 10*3/uL Normal 0-5 [facility] Comment on above: Performed By: #### L 100.0100, L506.1000, L500.4050, [id number] #### [facility] [address] [place], [address] Platelet mean volume (Bld) [Entitic vol] 9.6 fL Normal 6.2-12.0 [facility] Comment on above: Performed By: #### L 100.0100, L506.1000, L500.4050, [id number] #### [facility] [address] [place], [address] Platelets (Bld) [#/Vol] 332 10*3/uL Normal 150-450 [facility] Comment on above: Performed By: #### L 100.0100, L506.1000, L500.4050, [id number] #### [facility] [address] [place], [address] RBC (Bld) [#/Vol] 4.37 10*6/uL Normal 4.2-5.4 [facility] Comment on above: Performed By: #### L 100.0100, L506.1000, L500.4050, [id number] #### [facility] [address] [place], [address] RDW SD 43.9 fl Normal 35.1-43.9 [facility] Comment on above: Performed By: #### L 100.0100, L506.1000, L500.4050, [id number] #### [facility] [address] [place], [address] WBC (Bld) [#/Vol] 6.7 10*3/uL Normal 4.4-11.0 [facility] Comment on above: Performed By: #### L 100.0100, L506.1000, L500.4050, [id number] #### [facility] [address] [place], [address] Comprehensive Metabolic Prof ohalyssa 03-31-2024 Albumin [Mass/Vol] 3.6 g/dL Normal 3.2-5.0 [facility] Comment on above: Performed By: #### L 100.0100, L506.1000, L500.4050, [id number] #### [facility] [address] [place], [address] Albumin/Globulin [Mass ratio] 1.1 {ratio} Normal 0.9-2.4 [facility] Comment on above: Performed By: #### L 100.0100, L506.1000, L500.4050, [id number] #### [facility] [address] [place], [address] ALK P 64 U/L Normal 45-117 [facility] Comment on above: Performed By: #### L 100.0100, L506.1000, L500.4050, [id number] #### [facility] [address] [place], [address] ALT [Catalytic activity/Vol] 35 U/L Normal 13-56 [facility] Comment on above: Performed By: #### L 100.0100, L506.1000, L500.4050, [id number] #### [facility] [address] [place], [address] AST [Catalytic activity/Vol] 27 U/L Normal 15-37 [facility] Comment on above: Performed By: #### L 100.0100, L506.1000, L500.4050, [id number] #### [facility] [address] [place], [address] Bilirubin [Mass/Vol] 1.20 mg/dL High 0.20-1.00 [facility] Comment on above: Result Comment: For patients on eltrombopag therapy, use of Dimension [place] TBIL is not recommended. Performed By: #### L 100.0100, L506.1000, L500.4050, L501.9520 #### [facility] [address] [place], [address] BUN/CRE 16.2 RATIO Normal 10-20 [facility] Comment on above: Performed By: #### L 100.0100, L506.1000, L500.4050, [id number] #### [facility] [address] [place], [address] CA,Total 9.2 mg/dL Normal 8.5-10.1 [facility] Comment on above: Performed By: #### L 100.0100, L506.1000, L500.4050, [id number] #### [facility] [address] [place], [address] Chloride [Moles/Vol] 90 mmol/L Low 98-107 [facility] Comment on above: Performed By: #### L 100.0100, L506.1000, L500.4050, [id number] #### [facility] [address] [place], [address] CO2 [Moles/Vol] 32.0 mmol/L Normal 21.0-32.0 [facility] Comment on above: Performed By: #### L 100.0100, L506.1000, L500.4050, [id number] #### [facility] [address] [place], [address] Creatinine [Mass/Vol] 0.99 mg/dL Normal 0.55-1.02 [facility] Comment on above: Result Comment: The validity of the calculated GFR GFRAA in patients over 70 years has not been determined. Clinical correlation is essential. Performed By: #### L 100.0100, L506.1000, L500.4050, L501.9520 #### [facility] [address] [place], [address] EST GFR - AA 71 mL/min Normal >60 [facility] Comment on above: Result Comment: Afri can Finnish GFR Calc Performed By: #### L 100.0100, L506.1000, L500.4050, [id number] #### [facility] [address] [place], [address] GAP 6 Normal 5-15 [facility] Comment on above: Performed By: #### L 100.0100, L506.1000, L500.4050, [id number] #### [facility] [address] [place], [address] GFR/1.73 sq M.predicted among non-blacks MDRD (S/P/Bld) [Vol rate/Area] 59 mL/min/{1.73_m2} Low >60 [facility] Comment on above: Result Comment: Non- GFR Calc Performed By: #### L 100.0100, L506.1000, L500.4050, L501.9520 #### [facility] [address] [place], [address] Globulin (S) [Mass/Vol] 3.3 g/dL Normal 2.2-4.2 [facility] Comment on above: Performed By: #### L 100.0100, L506.1000, L500.4050, L501.9520 #### [facility] [address] [place], [address] Glucose [Mass/Vol] 93 mg/dL Normal 74-106 [facility] Comment on above: Performed By: #### L 100.0100, L506.1000, L500.4050, [id number] #### [facility] [address] [place], [address] Potassium [Moles/Vol] 4.6 mmol/L Normal 3.5-5.1 [facility] Comment on above: Performed By: #### L 100.0100, L506.1000, L500.4050, L501.9520 #### [facility] [address] [place], [address] Sodium [Moles/Vol] 128 mmol/L Low 136-145 [facility] Comment on above: Performed By: #### L 100.0100, L506.1000, L500.4050, [id number] #### [facility] [address] [place], [address] T PROT 6.9 g/dL Normal 6.4-8.2 [facility] Comment on above: Performed By: #### L 100.0100, L506.1000, L500.4050, L501.9520 #### [facility] [address] [place], [address] Urea nitrogen [Mass/Vol] 16 mg/dL Normal 7-18 [facility] Comment on above: Performed By: #### L 100.0100, L506.1000, L500.4050, L501.9520 #### [facility] [address] [place], [address] Thyroid Stim Hormone (TSH)on 03-31-2024 TSH 0.49 uIU/mL Normal 0.358-3.74 [facility] Comment on above: Performed By: #### L 100.0100, L506.1000, L500.4050, L501.9520 #### [facility] [address] [place], [address] Vitamin D,25 Hydroxyon 03-31 Vitamin D 25-OH 40.4 ng/mL Normal [facility] Comment on above: Result Comment: Mary min D 25(OH) Status Range Deficiency <20 ng/mL (50nmol/L) Insufficiency 20 - 30 ng/mL (50 - 75 nmol/L) Sufficiency 30 - 100 ng/mL (75 - 250 nmol/L) Toxicity >100 ng/mL (>250 nmol/L) Performed By: #### L 100.0100, L506.1000, L500.4050, L501.9520 #### [facility] [address] [place], [address] Basophil percentageOrdered B y: Kyle Garcia on 04-10-2023 Chloride [Moles/Vol] 96 mmol/L 98-107 [facility] Glucose [Mass/Vol] 92 mg/dL 74-106 [facility] Potassium [Moles/Vol] 4.0 mmol/L 3.5-5.1 [facility] Sodium [Moles/Vol] 133 mmol/L 136-145 [facility] - Chemistry and C hemistry - challengeOrdered By: Kyle Garcia on 04-10-2023 CO2 [Moles/Vol] 33.0 mmol/L 21.0-32.0 [facility] Urea nitrogen/Creatinine [Mass ratio] 14.5 mg/mg 10-20 [facility] No Panel InformationOrdered By: Kyle Garcia on 04-10-2023 Estimated GFR (MDRD) Amer 73 mL/min >60 [facility] Comment on above: GFR Calc Estimated GFR (MDRD) Non-Af Amer 60 mL/min >60 [facility] Comment on above: Non- GFR Calc Serum or plasma calcium mili urement (mass/volume)Ordered By: Kyle Garcia on 04-10-2023 Calcium [Mass/Vol] 8.8 mg/dL 8.5-10.1 [facility] Serum or plasma creatinine m easurement (mass/volume)Ordered By: Kyle Garcia on 04-10-2023 Creatinine [Mass/Vol] 0.97 mg/dL 0.55-1.02 [facility] Comment on above: The validity of the calculated GFR & GFRAA in patients over 70 years has not been determined. Clinical correlation is essential. Serum or plasma urea nitroge n measurement (mass/volume)Ordered By: Kyle Garcia on 04-10-2023 Urea nitrogen [Mass/Vol] 14 mg/dL 7-18 [facility] Thin prep Papanicolaou smear with manual screeningOrdered By: Kyle Garcia 04-10-2023 Thin prep Papanicolaou smear with manual screening 4 5-15 [facility] Absolute lymphocyte countOrd ered By: Kyle Garcia on 03-27-2023 Lymphocytes Auto (Unsp spec) [#/Vol] 2.06 10*3/uL 0.83-4.51 [facility] Basophil percentageOrdered B y: Kyle Garcia on 03-27-2023 Basophils/100 WBC (Bld) 0.5 % 0-1 [facility] Bilirubin [Mass/Vol] 1.10 mg/dL 0.20-1.00 [facility] Comment on above: For patients on eltr ombopag therapy, use of Dimension [place] TBIL is not recommended. Chloride [Moles/Vol] 93 mmol/L 98-107 [facility] Eosinophils/100 WBC (Bld) 1.2 % 0-5 [facility] Glucose [Mass/Vol] 95 mg/dL 74-106 [facility] Neutrophils (Bld) [#/Vol] 3.2 10*3/uL 2.0-7.7 [facility] Neutrophils/100 WBC (Bld) 55.2 % 47-70 [facility] Potassium [Moles/Vol] 3.3 mmol/L 3.5-5.1 [facility] Protein [Mass/Vol] 7.5 g/dL 6.4-8.2 [facility] Sodium [Moles/Vol] 134 mmol/L 136-145 [facility] WBC (Bld) [#/Vol] 5.8 10*3/uL 4.4-11.0 [facility] Blood erythrocytes count (nu mber/volume)Ordered By: Kyle Garcia on 03-27-2023 RBC (Bld) [#/Vol] 4.44 10*6/uL 4.2-5.4 [facility] Blood hemoglobin measurement (mass/volume)Ordered By: Kyle Garcia on 03-27-2023 Hemoglobin (Bld) [Mass/Vol] 13.5 g/dL 12.0-15.0 [facility] Blood lymphocytes/100 leukoc ytesOrdered By: Kyle Garcia 03-27-2023 Lymphocytes/100 WBC (Bld) 35.7 % 19-41 [facility] Blood monocytes/100 leukocyt esOrdered By: Kyle Garcia on 03-27-2023 Monocytes/100 WBC (Bld) 6.9 % 0-10 [facility] Blood platelet mean volumeOr dered By: Kyle Garcia on 03-27-2023 Platelet mean volume (Bld) [Entitic vol] 9.4 fL 6.2-12.0 [facility] Determination of erythrocyte mean corpuscular volume (MCV)Ordered By: Kyle Garcia on 03-27-2023 MCV (RBC) [Entitic vol] 92.1 fL 81-99 [facility] Hematocrit Auto (Bld) [Volum e fraction]Ordered By: Kyle Garcia on 03-27-2023 Hematocrit (Bld) [Volume fraction] 40.9 % 37-47 [facility] Laboratory - Chemistry and C hemistry - challengeOrdered By: Kyle Garcia on 03-27-2023 ALP [Catalytic activity/Vol] 70 U/L 45-117 [facility] ALT [Catalytic activity/Vol] 40 U/L 13-56 [facility] CO2 [Moles/Vol] 33.0 mmol/L 21.0-32.0 [facility] Globulin (S) [Mass/Vol] 3.8 g/dL 2.2-4.2 [facility] Urea nitrogen/Creatinine [Mass ratio] 14.3 mg/mg 10-20 [facility] Laboratory - Hematology and Cell countsOrdered By: Kyle Garcia on 03-27-2023 Erythrocyte distribution width (RBC) [Entitic vol] 47.1 fL 35.1-43.9 [facility] Erythrocyte distribution width (RBC) [Ratio] 14.0 % 11.6-14.6 [facility] Immature granulocytes/100 WBC (Bld) 0.500 % 0.0-0.9 [facility] Comment on above: IG% - Immature Granu locytes (promyelocytes, myelocytes and metamyelocytes) > 1% indicates that a LEFT SHIFT is Present. MCH (RBC) [Entitic mass] 30.4 pg 27.0-32.0 [facility] Nucleated RBC/100 WBC (Bld) [Ratio] 0 % 0-5 [facility] MCHC Auto (RBC) [Mass/Vol]Or dered By: Kyle Garcia on 03-27-2023 MCHC (RBC) [Mass/Vol] 33.0 g/dL 32-36 [facility] No Panel InformationOrdered By: Kyle Garcia on 03-27-2023 Estimated GFR (MDRD) Amer 66 mL/min >60 [facility] Comment on above: GFR Calc Estimated GFR (MDRD) Non-Af Amer 55 mL/min >60 [facility] Comment on above: Non- GFR Calc Thyroid Stimulating Hormone (TSH) 0.66 uIU/mL 0.358-3.74 [facility] Vitamin D 25-Hydroxy 50.2 ng/mL [facility] Comment on above: Vitamin D 25(OH) Sta tus Range Deficiency <20 ng/mL (50nmol/L) Insufficiency 20 - 30 ng/mL (50 - 75 nmol/L) Sufficiency 30 - 100 ng/mL (75 - 250 nmol/L) Toxicity >100 ng/mL (>250 nmol/L) Platelets bldOrdered By: Kyle Garcia on 03-27-2023 Platelets (Bld) [#/Vol] 363 10*3/uL 150-450 [facility] Serum or plasma albumin mili urement (mass/volume)Ordered By: Kyle Garcia on 03-27-2023 Albumin [Mass/Vol] 3.7 g/dL 3.2-5.0 [facility] Serum or plasma albumin/glob ulin mass ratioOrdered By: Kyle Garcia 03-27-2023 Albumin/Globulin [Mass ratio] 1.0 {ratio} 0.9-2.4 [facility] Serum or plasma calcium mili urement (mass/volume)Ordered By: Kyle Garica 03-27-2023 Calcium [Mass/Vol] 9.2 mg/dL 8.5-10.1 [facility] Serum or plasma creatinine m easurement (mass/volume)Ordered By: Kyle Garcia 03-27-2023 Creatinine [Mass/Vol] 1.05 mg/dL 0.55-1.02 [facility] Comment on above: The validity of the calculated GFR & GFRAA in patients over 70 years has not been determined. Clinical correlation is essential. Serum or plasma urea nitroge n measurement (mass/volume)Ordered By: Kyle Garcia 03-27-2023 Urea nitrogen [Mass/Vol] 15 mg/dL 18 [facility] Thin prep Papanicolaou smear with manual screeningOrdered By: Kyle Garcia 03-27-2023 Thin prep Papanicolaou smear with manual screening 24 U/L 15-37 [facility] Thin prep Papanicolaou smear with manual screening 8 5-15 [facility] CNOVon 01-23-2023 CNOV Office Visit ([place]ALK[place] ) OMAIRA BILLINGSLEY ([id number]) 1950 F Date Time Provider Department 01/23/23 2:00 PM NICK BUENO During your visit today, we recorded the following information about you: Pulse Blood pressure Weight 77/minute 124/70 113.9 kg Nick Bueno APRN.CNP 01/23/2023 2:41 PM Signed This note was created using NoteWriter. Subjective Omaira Billingsley is a 72 year old female. HPI by patient: Omaira is a 72 year old presenting to the office with the complaint of cough Started approximately Sunday Associated symptoms include cough, coughing up green stuff. Feels like its going lower and lower in her chest. Gets this every year. Was cleaning out her garage and noticed these symptoms started shortly after that. Not concerned for covid because besides sabianist she has not been anymore. She notes she has had yellow sputum that quickly turned green. Has sinus pain and pressure on Sunday that has now resolved. Possible body aches at that time too. Denies any other concerns Covid Immunization Dates Overdue - COVID-19 VACCINE (1) Overdue - never done No completion, postpone, frequency change, or communication history exists for this topic. Sick contacts: no Smoking history/second hand smoke: no OTC [place] childrens cough medicine and a anithistm[place] organic No antibiotic use in the last 60 days. ALLERGIES Aspirin Hives Comment:Other reaction(s): Ringing in ears heart palpitat House Dust Mite Unknown Insect Venom Unknown Iodine Unknown Latex Shortness of Breath Mold Unknown Peanut Unknown Shellfish Containin* Unknown Soy Protein Unknown [id number] Red* Other: See Comments No family history on file. Social History Tobacco Use Smoking status: Never Smokeless tobacco: Never Review of Systems Constitutional: Negative for chills and fever. HENT: Positive for congestion, postnasal drip and rhinorrhea. Negative for ear pain and sore throat. Respiratory: Positive for cough. Cardiovascular: Negative for chest pain. Allergic/Immunologic: Negative for immunocompromised state. Hematological: Negative for adenopathy. Objective BP 124/70 Pulse 77 Wt 113.9 kg (251 lb) SpO2 96% Physical Exam Vitals and nursing note reviewed. HENT: Right Ear: Tympanic membrane and ear canal normal. Left Ear: Tympanic membrane and ear canal normal. Nose: Congestion present. No rhinorrhea. Mouth/Throat: Pharynx: Uvula midline. No oropharyngeal exudate or posterior oropharyngeal erythema. Cardiovascular: Rate and Rhythm: Normal rate and regular rhythm. Heart sounds: Normal heart sounds. Pulmonary: Effort: Pulmonary effort is normal. No respiratory distress. Breath sounds: Normal breath sounds. No stridor. No wheezing, rhonchi or rales. Chest: Chest wall: No tenderness. Lymphadenopathy: Cervical: No cervical adenopathy. Skin: General: Skin is warm and dry. Neurological: Mental Status: She is alert and oriented to person, place, and time. Assessment and Plan ASSESSMENT/PLAN: 1. Acute cough - ICD9: 786.2, ICD10: R05.1 - GUAIFENESIN ER 600 MG TABLET, EXTENDED RELEASE 12 HR - DOXYCYCLINE MONOHYDRATE 100 MG TABLET Nick Bueno APRN.CNP Medical Decision Making: Problems: Moderate: New problem with uncertain prognosis Data: Unique source(s) for external note(s) reviewed: 1 Risk: Moderate: Drug management Medical Decision Making Level: 4 - Moderate Nick Bueno APRN.CNP 01/23/2023 2:41 PM Signed UPPER RESPIRATORY INFECTIONS Most cases are caused by viruses and most cases are mild, temporary, and harmless. Symptoms can last 2 to 3 weeks and can include: nasal congestion, sore throat, coughing, muscles aches, headaches, nausea, diarrhea, fatigue and fever. 1. Drink plenty of fluids. 2. Get lots of rest. 3. Avoid dehydrants such as caffeine and alcohol. 4. Nasal saline is an effective decongestant and be used frequently throughout the day. 5. To loosen phlegm and help coughing, drink plenty of fluids and using a humidifier. 6. For sore throats, it is ok to use cough drops, throat sprays, or gargling warm salt water. 7. Always cover your mouth when you cough or sneeze, and wash your hands frequently. Avoid crowded areas like shopping centers, movies while you are sick so you don't picking belt operator a different virus, or infect others. 8. Avoid exposure to cigarettes or fumes. 9. Avoid irritants such as potpourri, dust, perfumes, scented candles and scented sprays 10. Air conditioning is an effective allergen and irritant avoidance strategy in the spring, summer and fall. 11. Honey is an effective cough suppressant. Try one tsp two to three times per day. The below information is from prescribersletter.com : An (more content not included)... Normal [facility] Absolute lymphocyte counton 03-20-2022 Lymphocytes Auto (Unsp spec) [#/Vol] 2.29 10*3/uL 0.83-4.51 [facility] Work Phone: Basophil percentageon 2021 Basophils/100 WBC (Bld) 0.4 % 0-1 [facility] Work Phone: Bilirubin [Mass/Vol] 0.90 mg/dL 0.20-1.00 [facility] Work Phone: Comment on above: For patients on eltr ombopag therapy, use of Dimension [place] TBIL is not recommended. Chloride [Moles/Vol] 92 mmol/L 98-107 [facility] Work Phone: Eosinophils/100 WBC (Bld) 1.0 % 0-5 [facility] Work Phone: Glucose [Mass/Vol] 92 mg/dL 74-106 [facility] Work Phone: Neutrophils (Bld) [#/Vol] 4.3 10*3/uL 2.0-7.7 [facility] Work Phone: Neutrophils/100 WBC (Bld) 59.1 % 47-70 [facility] Work Phone: Potassium [Moles/Vol] 3.9 mmol/L 3.5-5.1 [facility] Work Phone: Protein [Mass/Vol] 7.7 g/dL 6.4-8.2 [facility] Work Phone: Sodium [Moles/Vol] 131 mmol/L 136-145 [facility] Work Phone: WBC (Bld) [#/Vol] 7.3 10*3/uL 4.4-11.0 [facility] Work Phone: Blood erythrocytes count (nu mber/volume)on 03-20-2022 RBC (Bld) [#/Vol] 4.39 10*6/uL 4.2-5.4 [facility] Work Phone: Blood hemoglobin measurement (mass/volume)on 03-20-2022 Hemoglobin (Bld) [Mass/Vol] 13.4 g/dL 12.0-15.0 [facility] Work Phone: Blood lymphocytes/100 leukoc yteson 03-20-2022 Lymphocytes/100 WBC (Bld) 31.2 % 19-41 [facility] Work Phone: Blood monocytes/100 leukocyt eson 03-20-2022 Monocytes/100 WBC (Bld) 7.9 % 0-10 [facility] Work Phone: Blood platelet mean volumeon 03-20-2022 Platelet mean volume (Bld) [Entitic vol] 9.8 fL 6.2-12.0 [facility] Work Phone: Determination of erythrocyte mean corpuscular volume (MCV)on 03-20-2022 MCV (RBC) [Entitic vol] 91.3 fL 81-99 [facility] Work Phone: Hematocrit Auto (Bld) [Volum e fraction]on 03-20-2022 Hematocrit (Bld) [Volume fraction] 40.1 % 37-47 [facility] Work Phone: Laboratory - Chemistry and C hemistry - challengeon 03-20-2022 ALP [Catalytic activity/Vol] 68 U/L 45-117 [facility] Work Phone: ALT [Catalytic activity/Vol] 38 U/L 13-56 [facility] Work Phone: CO2 [Moles/Vol] 30.0 mmol/L 21.0-32.0 [facility] Work Phone: Globulin (S) [Mass/Vol] 4.0 g/dL 2.2-4.2 [facility] Work Phone: Urea nitrogen/Creatinine [Mass ratio] 17.5 mg/mg 10-20 [facility] Work Phone: Laboratory - Hematology and Cell countson 03-20-2022 Erythrocyte distribution width (RBC) [Entitic vol] 44.1 fL 35.1-43.9 [facility] Work Phone: Erythrocyte distribution width (RBC) [Ratio] 13.1 % 11.6-14.6 [facility] Work Phone: Immature granulocytes/100 WBC (Bld) 0.400 % 0.0-0.9 [facility] Work Phone: Comment on above: IG% - Immature Granu locytes (promyelocytes, myelocytes and metamyelocytes) > 1% indicates that a LEFT SHIFT is Present. MCH (RBC) [Entitic mass] 30.5 pg 27.0-32.0 [facility] Work Phone: Nucleated RBC/100 WBC (Bld) [Ratio] 0 % 0-5 [facility] Work Phone: MCHC Auto (RBC) [Mass/Vol]on 03-20-2022 MCHC (RBC) [Mass/Vol] 33.4 g/dL 32-36 [facility] Work Phone: No Panel Informationon 03-20 Estimated GFR (MDRD) Amer 68 mL/min >60 [facility] Work Phone: Comment on above: GFR Calc Estimated GFR (MDRD) Non-Af Amer 56 mL/min >60 [facility] Work Phone: Comment on above: Non- GFR Calc Thyroid Stimulating Hormone (TSH) 0.77 uIU/mL 0.358-3.74 [facility] Work Phone: Vitamin D 25-Hydroxy 42.3 ng/mL [facility] Work Phone: Comment on above: Vitamin D 25(OH) Sta tus Range Deficiency <20 ng/mL (50nmol/L) Insufficiency 20 - 30 ng/mL (50 - 75 nmol/L) Sufficiency 30 - 100 ng/mL (75 - 250 nmol/L) Toxicity >100 ng/mL (>250 nmol/L) Platelets bldon 03-20-2022 Platelets (Bld) [#/Vol] 392 10*3/uL 150-450 [facility] Work Phone: Serum or plasma albumin mili urement (mass/volume)on 03-20-2022 Albumin [Mass/Vol] 3.7 g/dL 3.2-5.0 [facility] Work Phone: Serum or plasma albumin/glob ulin mass ratioon 03-20-2022 Albumin/Globulin [Mass ratio] 0.9 {ratio} 0.9-2.4 [facility] Work Phone: Serum or plasma calcium mili urement (mass/volume)on 03-20-2022 Calcium [Mass/Vol] 9.4 mg/dL 8.5-10.1 [facility] Work Phone: Serum or plasma creatinine m easurement (mass/volume)on 03-20-2022 Creatinine [Mass/Vol] 1.03 mg/dL 0.55-1.02 [facility] Work Phone: Comment on above: The validity of the calculated GFR & GFRAA in patients over 70 years has not been determined. Clinical correlation is essential. Serum or plasma urea nitroge n measurement (mass/volume)on 03-20-2022 Urea nitrogen [Mass/Vol] 18 mg/dL 7-18 [facility] Work Phone: Serum or plasma uric acid me asurement (mass/volume)on 03-20-2022 Urate [Mass/Vol] 7.6 mg/dL 2.6-6.0 [facility] Work Phone: Comment on above: The drugs N-Acetylcy steine and Metamizole may falsely depress this assay. Thin prep Papanicolaou smear with manual screeningon 03-20-2022 Thin prep Papanicolaou smear with manual screening 18 U/L 15-37 [facility] Work Phone: Thin prep Papanicolaou smear with manual screening 9 5-15 [facility] Work Phone: CT LOWER EXTREMITY RIGHT WO CONTRASTon 11-22-2020 Patient Name: OMAIRA BILLINGSLEY Computed Tomography ACCESSION EXAM DATE/TIME PROCEDURE ORDERING PROVIDER [id number] 11/22/2020 11:[address] Low Ext w/o Contrast MD ROMAINE, SANA Right CPT code 37661 Reason For Exam (CT Low Ext w/o Contrast Right) s/p foot surgery right; arthritis of subtalar joint Report Examination: CT right lower extremity Clinical Indication: s/p foot surgery right; arthritis of subtalar joint Comparison: X-ray 07/07/2020 Findings: Serial axial 0.[address] images obtained through the right lower extremity, ankle and foot without contrast. Coronal, axial and sagittal images reconstructed. Significant osteopenia with some worsening along the articular surfaces possibly related to disuse. There is fixation hardware seen along the talar and talonavicular joints. Two screws extend from proximal to distal across the subtalar joints. There is solid osseous fusion along the posterior and mid aspect of the subtalar joint. Dorsal plate and screws transfix the talonavicular. Additional distal to proximal screw across the talonavicular. There is significant solid osseous bridging across approximately 80 percent of the interface. Few bone graft fragment seen along the apex subtalar joint and extending more laterally. No evidence of acute fracture or subluxation. Tibiotalar joint space narrowing with small to moderate size osteophytes. Calcaneal enthesophyte/bone spurs. This is moderate in size at the plantar aponeurotic origin. Midfoot demonstrates cartilage thinning. Minimal osteoarthropathy. First metatarsal phalangeal joint space narrowing and mild osteoarthropathy with mild hallux valgus. Soft tissues demonstrate mild nonspecific subcutaneous edema. Impression: 1. Postsurgical changes consistent with subtalar and talonavicular hardware fusion. There is significant solid osseous bridging across the joints. No Computed Tomography Report evidence of hardware failure. 2. Disuse osteopenia likely worsened secondary to component of disuse. 3. 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 4. Hallux valgus of the great toe. Report Dictated on Workstation: [id number] --- Final --- Dictating Physician: MD ORTIZ ANTHONY J Signed Date and Time: 11/22/2020 11:53 am Signed by: MD ORTIZ ANTHONY J Transcribed Date and Time: 11/22/2020 11:54 [facility] Work Phone: Sal, Carine Incoming Radiology Results From [facility] - 11/22/2020 11:54 AM EDT Patient Name: OMAIRA BILLINGSLEY Computed Tomography ACCESSION EXAM DATE/TIME PROCEDURE ORDERING PROVIDER [id number] 11/22/2020 11:[address] Low Ext w/o Contrast MD ROMAINE, SANA Right CPT code 93679 Reason For Exam (CT Low Ext w/o Contrast Right) s/p foot surgery right; arthritis of subtalar joint Report Examination: CT right lower extremity Clinical Indication: s/p foot surgery right; arthritis of subtalar joint Comparison: X-ray 07/07/2020 Findings: Serial axial 0.[address] images obtained through the right lower extremity, ankle and foot without contrast. Coronal, axial and sagittal images reconstructed. Significant osteopenia with some worsening along the articular surfaces possibly related to disuse. There is fixation hardware seen along the talar and talonavicular joints. Two screws extend from proximal to distal across the subtalar joints. There is solid osseous fusion along the posterior and mid aspect of the subtalar joint. Dorsal plate and screws transfix the talonavicular. Additional distal to proximal screw across the talonavicular. There is significant solid osseous bridging across approximately 80 percent of the interface. Few bone graft fragment seen along the apex subtalar joint and extending more laterally. No evidence of acute fracture or subluxation. Tibiotalar joint space narrowing with small to moderate size osteophytes. Calcaneal enthesophyte/bone spurs. This is moderate in size at the plantar aponeurotic origin. Midfoot demonstrates cartilage thinning. Minimal osteoarthropathy. First metatarsal phalangeal joint space narrowing and mild osteoarthropathy with mild hallux valgus. Soft tissues demonstrate mild nonspecific subcutaneous edema. Impression: 1. Postsurgical changes consistent with subtalar and talonavicular hardware fusion. There is significant solid osseous bridging across the joints. No Computed Tomography Report evidence of hardware failure. 2. Disuse osteopenia likely worsened secondary to component of disuse. 3. 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 4. Hallux valgus of the great toe. Report Dictated on Workstation: Server [id number] --- Final --- Dictating Physician: MD ORTIZ ANTHONY J Signed Date and Time: 11/22/2020 11:53 am Signed by: MD ORTIZ ANTHONY J Transcribed Date and Time: 11/22/2020 11:54 [facility] Work Phone: CT Low Ext w/o Contrast Gene man 11-22-2020 CT Low Ext w/o Contrast Right [id number] ACCESSION EXAM DATE/TIME PROCEDURE ORDERING PROVIDER [id number] 11/22/2020 11:[address] Low Ext w/o Contrast MD ROMAINE, SANA Right CPT code 47853 Reason For Exam (CT Low Ext w/o Contrast Right) s/p foot surgery right; arthritis of subtalar joint Report Examination: CT right lower extremity Clinical Indication: s/p foot surgery right; arthritis of subtalar joint Comparison: X-ray 07/07/2020 Findings: Serial axial 0.[address] images obtained through the right lower extremity, ankle and foot without contrast. Coronal, axial and sagittal images reconstructed. Significant osteopenia with some worsening along the articular surfaces possibly related to disuse. There is fixation hardware seen along the talar and talonavicular joints. Two screws extend from proximal to distal across the subtalar joints. There is solid osseous fusion along the posterior and mid aspect of the subtalar joint. Dorsal plate and screws transfix the talonavicular. Additional distal to proximal screw across the talonavicular. There is significant solid osseous bridging across approximately 80 percent of the interface. Few bone graft fragment seen along the apex subtalar joint and extending more laterally. No evidence of acute fracture or subluxation. Tibiotalar joint space narrowing with small to moderate size osteophytes. Calcaneal enthesophyte/bone spurs. This is moderate in size at the plantar aponeurotic origin. Midfoot demonstrates cartilage thinning. Minimal osteoarthropathy. First metatarsal phalangeal joint space narrowing and mild osteoarthropathy with mild hallux valgus. Soft tissues demonstrate mild nonspecific subcutaneous edema. Impression: 1. Postsurgical changes consistent with subtalar and talonavicular hardware fusion. There is significant solid osseous bridging across the joints. No Computed Tomography Report evidence of hardware failure. 2. Disuse osteopenia likely worsened secondary to component of disuse. 3. 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 4. Hallux valgus of the great toe. Report Dictated on Workstation: [id number] Final Dictating Physician: MD ORTIZ ANTHONY J Signed Date and Time: 11/22/2020 11:53 am Signed by: MD ORTIZ ANTHONY J Transcribed Date and Time: 11/22/2020 11:54 Normal [facility] Work Phone: Clinical Summary: [facility]2020 [facility] Work Phone: Office Visit: Test Result, R m: [id number] NEGATED: Highlighted rowMRI (magnetic resonance imaging) history of the right ankle on 07/20/2020 at [facility] Work Phone: NEGATED: Highlighted rowxray history of the right foot on 07/12/2020 at [facility], of the right ankle on 07/07/2020 at [facility] Work Phone: Clinical Summary: HMSPatient IDon 07-12-2020 OOP Anna Marie Phillip [facility] Work Phone: Office Visit: New - 1st visi t with practice, Rm: 9on 07-12-2020 NEGATED: Highlighted rowTobacco smoking status NHIS Tobacco smoking status [facility] Work Phone: NEGATED: Highlighted rowxray history of the right ankle on 07/07/[address] [facility] Work Phone: Clinical Summary: Scanned Hi story Summaryon 07-11-2020 cause of , mother heart Cr [facility] Work Phone: comments about allergies aspirin, latex, statins [facility] Work Phone: data entered by patient, Employer Name retired [facility] Work Phone: Data entered by patient, history of past surgeries Cataract surgery [facility] Work Phone: Data entered by patient, medication list lisinopril and hydrochlorothiazide-1 0-12.5mg-2-1 tablet twice a dayvitamin d3-1,000 unit-1-1 tablet every dayvitamin [id number]-[id number] neededmulti vitamin-Unknown Roxyhazw-3-dgxa a day [facility] Work Phone: data entered by patient, mother's medical history High blood pressure [facility] Work Phone: data entered by patient, past medical history High blood pressure [facility] Work Phone: data entered by patient, social history, marital status [facility] Work Phone: Housing Type: apartment, house, assisted, trailer, none house Anna Marie hernandez [facility] Work Phone: housing unit size (asthma environmental history, housing) (from single family to don't know) 2 floors [facility] Work Phone: mother of patient is alive or [facility] Work Phone: mother's medical history, comments Aortic calve needed to be replaced [facility] Work Phone: Number of dependent children No [facility] Work Phone: Web entered surgical history comments Tendonitis surgery on right elbow, 40 years ago. [facility] Work Phone: CR Ankle 3+ Views Righton CR Ankle 3+ Views Right Patient Name: OMAIRA BILLINGSLEY Diagnostic Radiology Exam Date/Time 07/07/2020 09:55:00 EDT Exam CR Ankle 3+ Views Right Ordering Physician [id number] COSME Accession Number [id number] CPT4 Codes 83041 () Reason For Exam right ankle pain Report Examination: Right ankle Clinical Indication: Pain Comparison: None Findings: AP, lateral, and oblique views of the right ankle demonstrate are provided. Multiple well-corticated osseous fragments are present at the tip of the medial malleolus. Otherwise no fracture or dislocation. The bones are in normal anatomic alignment with preservation of the ankle mortise. Large plantar calcaneal chest five. Otherwise no productive or erosive arthropathy. Soft tissue swelling overlying the lateral malleolus. Impression: 1. Multiple well-corticated osseous fragments are present at the tip of the medial malleolus, appeared to be of nonacute chronicity, however correlation with point tenderness is recommended. Otherwise no fracture or dislocation. 2. Soft tissue swelling overlying the lateral malleolus. Report Dictated on Final Dictating Physician: MD SCALES JASON Signed Date and Time: 07/07/2020 10:04 am Signed by: MD SCALES JASON Transcribed Date and Time: 07/07/2020 10:05 Normal [facility] ED Provider Noteon 0 ED Provider Note JUD STEPHEN ED EMERGENCY DEPARTMENT ENCOUNTER Pt Name: Omaira Billingsley Birthdate 1950 Date of evaluation: 07/07/2020 Provider: Jose Mcgarry, DO CHIEF COMPLAINT Chief Complaint Patient presents with ? Ankle Pain ? Foot Pain HISTORY OF PRESENT ILLNESS (Location/Symptom, Timing/Onset, Context/Setting, Quality, Duration, Modifying Factors, Severity) Note limiting factors. I wore a N95 mask for the entirety of this encounter. HPI Omaira Billingsley is a 70 y.o. female P/w right ankle pain. She notes she had been gardening more over the last several days and noticed as she wakes up in the morning she gets tenderness and stiffness in the right ankle. She also pain is severe, nonradiating, 7/10. With no alleviating features. She notes her pain is exacerbated by movement and palpation. She denies any recent trauma, twisting the ankle. She denies any numbness, tingling, loss of sensation. Old chart reviewed: Summary of pertinent elements includes: No advanced imaging of the right ankle REVIEW OF SYSTEMS (2+ for level 4; 10+ for level 5) Review of Systems Musculoskeletal: Positive for arthralgias and gait problem. All other systems reviewed and are negative. PAST MEDICAL HISTORY History reviewed. No pertinent past medical history. SURGICAL HISTORY History reviewed. No pertinent surgical history. CURRENT MEDICATIONS Previous Medications BENAZEPRIL-HYDROCHLOR THIAZIDE (LOTENSIN HCT) 20-12.5 MG PER TABLET Take 1 tablet by mouth daily ALLERGIES Latex; Aspirin; and Statins FAMILY HISTORY History reviewed. No pertinent family history. SOCIAL HISTORY Social History Socioeconomic History ? Marital status: Spouse name: None ? Number of children: None ? Years of education: None ? Highest education level: None Occupational History ? None Social Needs ? Financial resource strain: None ? Food insecurity Worry: None Inability: None ? Transportation needs Medical: None Non-medical: None Tobacco Use ? Smoking status: Never Smoker ? Smokeless tobacco: Never Used Substance and Sexual Activity ? Alcohol use: Never Frequency: Never ? Drug use: None ? Sexual activity: None Lifestyle ? Physical activity Days per week: None Minutes per session: None ? Stress: None Relationships ? Social connections Talks on phone: None Gets together: None Attends mandaen service: None Active member of club or organization: None Attends meetings of clubs or organizations: None Relationship status: None ? Intimate partner violence Fear of current or ex partner: None Emotionally abused: None Physically abused: None Forced sexual activity: None Other Topics Concern ? None Social History Narrative ? None SCREENINGS PHYSICAL EXAM (up to 7 for level 4, 8 or more for level 5) BP (!) 136/59 Pulse 71 Temp 97.5 ?F (36.4 ?C) (Temporal) Resp 16 Ht 5' 4" (1.626 m) Wt 108.9 kg (240 lb) SpO2 96% BMI 41.20 kg/m? Nursing triage notes reviewed, Vital signs reviewed Constitutional: please see mdm HENT: MMM Eyes: Pupils equal round and reactive to light, Extraocular muscles intact Neck: No stridor, no JVD, full neck ROM Lungs: Clear to auscultation, No wheezing or rales . No respiratory distress noted Heart: Regular rate and rhythm, No murmurs, No rubs and No gallops, 2+ distal pulses (radial, femoral, posterior tibial) in all extremities Abdomen: Soft, there is no tenderness, rigidity, rebound or guarding : No CVAT Extremities: No edema, no deformities, right ankle tender to palpation over the dorsum, there is some tenderness palpation over the major fascia, Achilles tendon complex intact, compartments are soft, no calf tenderness noted. Neuro: No focal neurological deficits, 5/5 strength in all extremities. Intact sensation to light touch in all extremities. Intact sensation in L1 - S1 dermatomal distributions. Intact 5/5 strength in hip flexion (T12 - L3). Knee extension (L2 - L4). Ankle dorsiflexion (L4 - L5). Ankle plantarflexion (S1). Great toe extension (L5). 2+ patellar and achilles DTRs. Skin: No rash or lesions noted DIAGNOSTIC RESULTS EKG (if obtained) interpreted in ED course. Please see below. EMERGENCY DEPARTMENT COURSE and DIFFERENTIAL DIAGNOSIS/MDM: Vitals: Vitals: 07/07/20 0936 07/07/20 0937 BP: (!) 136/59 Pulse: 71 Resp: 16 Temp: 97.5 ?F (36.4 ?C) TempSrc: Temporal SpO2: 96% Weight: 108.9 kg (240 lb) Height: 5' 4" (1.626 m) Labs and Images interpreted in ED course. All labs and imaging have been personally reviewed by me. ED Course as of Jul 07 1625SunJul 07, 2020 1109 XR right ankle shows Impression: 1. Multiple well-corticated osseous fragments are present at the tip of the medial malleolus, appeared to be of nonacute chronicity, however correlation with point tenderness is recommended. Otherwise no fracture or dislocation. ? 2. Soft tissue swelling overlying the lateral malleolus. [TA] ED Course User Index [TA] Jose Mcgarry DO MDM. 70 year old F presents with insidious onset of right ankle pain with no evidence or report of traumaThe patient was examined. she was hemodynamically stable, afebrile, nontoxic-appearing. Right lower extremity was neurovascularly intact. Compartments are soft, there is no calf tenderness to suggest deep vein thrombosis. There is no rash or other infectious etiologies to suggest cellulitis or necrotizing fasciitis. X-ray of the right ankle was undertaken rule out a fracture or dislocation. X-ray was negative. The patient was provided with symptomatically relief as above and is clear for discharge.. The patient was instructed to return to the ED if his/her symptoms changed or worsened. The patient was instructed to follow-up with PCP in the next 24 hours or at the earliest possible appointment for reassessment and further management The pateint agreed with the plan and expressed understanding. REVAL: On re-evaluation the patient's right lower extremity remains neurovascular intact and she is appropriate discharge home. CRITICAL CARE TIME Total Critical Care time was 0 minutes, excluding separately reportable procedures. CONSULTS: None PROCEDURES: Unless otherwise noted below, none Procedures FINAL IMPRESSION 1. Plantar fascial fibromatosis 2. Acute right ankle pain DISPOSITION/PLAN Disposition: Discharge to home Patient condition is good PATIENT REFERRED TO: [place] [id number] [address] [facility] [id number] (Please note: Portions of this note were completed with a voice recognition program. Efforts were made to edit the dictations but occasionally words and phrases are mis-transcribed.) Form [id number] Jose Mcgarry DO (electronically signed) Emergency Medicine Provider Jose Mcgarry DO 07/07/20 1647 Normal [facility] XR ANKLE RIGHT (MIN 3 VIEWS) on 07-07-2020 Patient Name: OMAIRA BILLINGSLEY ---Diagnostic Radiology--- Exam Date/Time 07/07/2020 09:55:00 EDT Exam CR Ankle 3+ Views Right Ordering Physician JOSE YANEZ Accession Number [id number] CPT4 Codes 61430 () Reason For Exam right ankle pain Report Examination: Right ankle Clinical Indication: Pain Comparison: None Findings: AP, lateral, and oblique views of the right ankle demonstrate are provided. Multiple well-corticated osseous fragments are present at the tip of the medial malleolus. Otherwise no fracture or dislocation. The bones are in normal anatomic alignment with preservation of the ankle mortise. Large plantar calcaneal chest five. Otherwise no productive or erosive arthropathy. Soft tissue swelling overlying the lateral malleolus. Impression: 1. Multiple well-corticated osseous fragments are present at the tip of the medial malleolus, appeared to be of nonacute chronicity, however correlation with point tenderness is recommended. Otherwise no fracture or dislocation. 2. Soft tissue swelling overlying the lateral malleolus. Report Dictated on --- Final --- Dictating Physician: MD SCALES JASON Signed Date and Time: 07/07/2020 10:04 am Signed by: MD SCALES JASON Transcribed Date and Time: 07/07/2020 10:05 [facility], [facility], [facility] Incoming Radiology Results From [facility] - 07/07/2020 10:05 AM EDT Patient Name: OMAIRA BILLINGSLEY ---Diagnostic Radiology--- Exam Date/Time 07/07/2020 09:55:00 EDT Exam CR Ankle 3+ Views Right Ordering Physician [id number] -JOSE MCGARRY Accession Number [id number] CPT4 Codes 35919 () Reason For Exam right ankle pain Report Examination: Right ankle Clinical Indication: Pain Comparison: None Findings: AP, lateral, and oblique views of the right ankle demonstrate are provided. Multiple well-corticated osseous fragments are present at the tip of the medial malleolus. Otherwise no fracture or dislocation. The bones are in normal anatomic alignment with preservation of the ankle mortise. Large plantar calcaneal chest five. Otherwise no productive or erosive arthropathy. Soft tissue swelling overlying the lateral malleolus. Impression: 1. Multiple well-corticated osseous fragments are present at the tip of the medial malleolus, appeared to be of nonacute chronicity, however correlation with point tenderness is recommended. Otherwise no fracture or dislocation. 2. Soft tissue swelling overlying the lateral malleolus. Report Dictated on --- Final --- Dictating Physician: MD SCALES JASON Signed Date and Time: 07/07/2020 10:04 am Signed by: MD SCALES JASON Transcribed Date and Time: 07/07/2020 10:05 [place], [place] Ophthalmic Eye [facility] 2018 Ophthalmic Eye Exam DOCUMENT SIGNED ELECTRONICALLY BY Art Morrow ON 06/02/2019 09:54:[address] [address] [id number] THIS DOCUMENT WAS CREATED ON: 06/02/2019 09:54:40 AM BY: Art Jensen performed [id number] Exam Date: Sunday, June 02, 2019 PATIENT NAME: OMAIRA BILLINGSLEY DATE: 1950 AGE: 68 GENDER: Female RACE: White REFERRING DOCTOR: Anne Camargo PRIMARY CARE PHYSICIAN: Chris Garcia The Patient states that she was sent by Anne Camargo History Chief Complaint/Reason For Visit: 68yoF here for 6 month F/U, referral from Dr. Wild, h/o BRVO OD, no vision changes since PADMA, new floater OS since PADMA, no flashes, occas pressure feeling OD, HISTORY OF PRESENT ILLNESS: HPI was performed by Dr. Art Morrow and scribed by Tyrone Morrow PAST MEDICAL HISTORY: OCULAR: BRVO cme, PVD hr, Cataract,Pseudophakia Right eye PROCEDURES : 08/12/2013 Vitrectomy mp,25g OD, 12/14/2012 Injection-Avastin OD, 02/11/2013 Focal Laser OD, AVASTIN INJECTION OD 07/31/2014, AVASTIN INJECTION OD 09/11/2014, AVASTIN INJECTION OD 10/28/2014 , AVASTIN INJECTION OD 12/03/2014, AVASTIN INJECTION OD 01/15/2015, AVASTIN INJECTION OD 02/24/2015, AVASTIN INJECTION OD 03/26/2015, AVASTIN INJECTION OD 05/14/2015, Focal Retinal Laser OD 04/07/2016,08/09/2016 Cataract Extraction w/ IOL OD INFECTIOUS: Usual childhood illnesses of mumps measles and chickenpox ILLNESSES: History of No pertinent past surgical history; History of Other age-related incipient cataract of right eye; History of Personal history of asthma; History of hypertension; History of High cholesterol; History of Branch retinal vein occlusion of right eye; SURGERIES: History of Intravitreal Injection Of A Pharmacologic Agent Right Eye; SOCIAL HISTORY: ALCOHOL: Occasional alcohol use; SMOKING: Never a smoker; FAMILY HISTORY: Family History Last Reviewed on:06/02/2019 FATHER: Family history of macular degeneration CURRENT MEDICATIONS: Artificial Tears SOLN (No Solution, INSTILL 1 DROP Once OU[Reported] , Lisinopril-hydroCHLOR Othi Tablet, [Reported] Multivitamins TABS (No lo Tablet, [Reported] Vitamin D TABS Tablet, TAKE 1 TABLET Weekly by mouth[Report ALLERGIES: Aspirin TABS, Latex Exam Gloves MISC, Statins REVIEW OF SYSTEMS: All other Review Of Systems negative Exam ORIENTATION, MOOD AND AFFECT: Alert AND oriented x3 RIGHT EYE LEFT EYE UNCORRECTED VA 20/20-2 20/20-2 PRESSURES: 18 20 DATE-TIME: 09:17 AM 09:17 AM 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 MACHINE OPERATOR: [email or web address] EXTERNAL EYE EXAM: LID: Good Position Good Position PUPIL: PERRL/no APD PERRL/no APD ADNEXA: Normal Normal MUSCLE BALANCE: Ortho OCULAR MOTILITY: Full ANTERIOR SEGMENT EXAM: TEARFILM: Good Good CONJUNCTIVA: White and quiet White and quiet CORNEA: Clear Clear ANTERIOR CHAMBER: Deep and quiet Deep and quiet IRIS: Round and reactive Round and reactive LENS: PC IOL, significant PCO Trace NS with clear windows ANTERIOR VITREOUS: Clear Clear FUNDUS EXAM: DILATION and NUMBING DROPS: Yan 2.5% AND Mydriacyl 1% OU 06/02/2019 09:15:55 AM CUP TO DISC: .2 .2 OPTIC DISC: [place] and sharp [place] and sharp VITREOUS: PVD PVD MACULA: superior hard exudates NOW Normal reflex RESOLVED , mild ERM, temporal collaterals VESSELS: attenuation Normal PERIPHERY: ST quadrant laser, no tears, No tears, breaks, or holes breaks or holes, flat Impression 01 H26.491 Pco (posterior capsular opacification), right-Stable 02 Z96.1 Pseudophakia Of Right Eye-Stable 03 H25.12 Nuclear cataract of left eye-Stable 04 H04.123 Dry eyes, bilateral-Stable 05 H34.8312 Branch retinal vein occlusion of right eye-Stable 06 H35.371 Epiretinal membrane (erm) of right eye-Stable 07 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 08 H35.033 Bilateral hypertensive retinopathy-Stable 09 H52.4 Presbyopia-Stable Discussion control of BP and sugar (pre DM) encouraged created by:Art Morrow Plan TODAY (OU) - OCT Macula By:Art Morrow BRVO OD --s/p focal 04/07/16 --s/p REBA # 18 03/03/16 -- thickening ST macula --Doing well off of injections --ctm --f/u 1 year CME (cystoid macular edema).359 -resolved largely pseudophakia OD -s/p CE PCIOL 08/09 -PCO but seeing well, rec YAG -doing well erm OD - h/o ppv, mp 08/22 - stable monitor Nuclear cataract of left eye.12 - monitor No intervention needed form retina perpective 1 year f/u Art Morrow DOCUMENT CREATE DATE: 06/02/2019 09:54:43 AM The Following Users Updated This Patient Encounter: Melinda Morrow Received for:Art Morrow Jun 02 2019 9:54AM Eastern Standard Time Normal [facility] 2018 Ophthalmic Eye Exam DOCUMENT SIGNED ELECTRONICALLY BY Anne Camargo MD ON 11/27/2018 14:55:59 [place] [address] [address] [place] [address] [id number] THIS DOCUMENT WAS CREATED ON: 11/27/2018 02:55:50 PM BY: MD Liv Kingsley COT performed Refraction GRUPO Ballard performed YYLCI-Rriq-[id number] Exam Date: Tuesday, November 27, 2018 PATIENT NAME: OMAIRA BILLINGSLEY DATE: 1950 AGE: 68 GENDER: Female RACE: White PRIMARY CARE PHYSICIAN: Chris Garcia History Chief Complaint/Reason For Visit: 68yoF, here for 1 year F/U PC OD, Cataract OS, BRVO OD, ERM OD, HTN Retinopathy OU, PVD OU. Problem-Floaters, spots, Location-left eye, Duration-several years, Timing-comes and goes, Associated S/S-no change in amount or size, +Occas flashes OU, no curtain, no veil, no misisng areas in Va, +Occas dryness OU, no itching OU, no burning OU, no redness OU. HISTORY OF PRESENT ILLNESS: PROBLEM: Floaters, spots LOCATION: left eye DURATION: several years TIMING: comes and goes ASSOCIATED SS: no change in amount or size, +Occas flashes OU, no curtain, no veil, no misisng areas in Va HPI was performed by Dr. Anne Camargo MD and scribed by Tyrone Camargo MD PAST MEDICAL HISTORY: ILLNESSES: History of No pertinent past surgical history; History of Other age-related incipient cataract of right eye; History of Personal history of asthma; History of hypertension; History of High cholesterol; History of Branch retinal vein occlusion of right eye SURGERIES: History of Intravitreal Injection Of A Pharmacologic Agent Right Eye SOCIAL HISTORY: ALCOHOL: Occasional alcohol use SMOKING: Never a smoker FAMILY HISTORY: Family History Last Reviewed on:11/27/2018 FATHER: Family history of macular degeneration CURRENT MEDICATIONS: Artificial Tears SOLN (No Solution, INSTILL 1 DROP Once OU[Reported] , Lisinopril-hydroCHLOR Othi Tablet, [Reported] Multivitamins TABS (No lo Tablet, [Reported] Vitamin D TABS Tablet, TAKE 1 TABLET Weekly by mouth[Report ALLERGIES: Aspirin TABS, Latex Exam Gloves MISC, Statins REVIEW OF SYSTEMS: All other Review Of Systems negative Exam ORIENTATION, MOOD AND AFFECT: Alert AND oriented x3 RIGHT EYE LEFT EYE UNCORRECTED VA 20/25 + 20/25 + WEARING OTC NVO OTC NVO MANIFEST REFRACTION PLANO SPHER add +2.50 -0.25 SPHER add +2.50 BEST PATRICIO FINAL VA 20/25 + 20/20 - GLARE VA 20/25 (M), 20/30 (H) DOCTORS FINAL NEAR VA CHECK J1+, J1+ J1+, J1+ PRESSURE METHOD: Applanation Applanation PRESSURES: 18 18 DATE-TIME: 01:56 PM 01:56 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: Isabel Hall EXTERNAL EYE EXAM: LID: Good Position Good Position PUPIL: PERRL/no APD PERRL/no APD ADNEXA: Normal Normal MUSCLE BALANCE: Ortho OCULAR MOTILITY: Full ANTERIOR SEGMENT EXAM: TEARFILM: Good Good CONJUNCTIVA: White and quiet White and quiet CORNEA: Clear Clear ANTERIOR CHAMBER: Deep and quiet Deep and quiet IRIS: Round and reactive Round and reactive LENS: PC IOL, trace PCO (nasal) Trace NS ANTERIOR VITREOUS: Clear Clear FUNDUS EXAM: DILATION and NUMBING DROPS: Mydriacyl 1% AND Yan 2 1/2% OU 11/27/2018 01:56:53 PM CUP TO DISC: .2 .2 OPTIC DISC: [place] and sharp [place] and sharp VITREOUS: PVD PVD MACULA: superior hard exudates, mild Normal reflex ERM, temporal collaterals VESSELS: attenuation Normal PERIPHERY: ST quadrant laser, no tears, No tears, breaks, or holes breaks or holes, flat Impression H26.491 Pco (posterior capsular opacification), right-Stable 02 Z96.1 Pseudophakia Of Right Eye-Stable 03 H25.12 Nuclear cataract of left eye-Stable 04 H04.123 Dry eyes, bilateral-New 05 H34.8312 Branch retinal vein occlusion of right eye-Stable 06 H35.371 Epiretinal membrane (erm) of right eye-Stable 07 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 Good vision - stable PCO/vision from November 2017, would monitor for now. Mild glare, but no other significant symptoms at this time. -Rx given previously, and may also use OTC reading glasses. Has computer/music glasses (OD: +2.25. OS: +2.00). -F/u 1 year for comprehensive exam, but advised to call or return sooner if any worsening of symptoms. Nuclear cataract of left eye.12 -Not visually significant at this time. Monitor. F/u 1 year. Branch retinal vein occlusion with macular edema of right eye.831 Branch retinal vein occlusion of right eye.8312 Epiretinal membrane (ERM) of right eye.371 CME (cystoid macular edema).359 Bilateral hypertensive retinopathy.033 -History of PPV/MP 08/22 -s/p focal laser 04/07/16, s/p REBA #18 03/03/16. Last visit with retina specialist 08/2017 -Recommend to see retina specialist in about 6 months to assess ERM, history of BRVO and CME OD FOLLOWUP SCHEDULED: Return Visit - 1 year Return Visit - REFER TO 6 months Consult Retina Anne Camargo MD DOCUMENT CREATE DATE: 11/27/2018 02:55:52 PM The Following Users Updated This Patient Encounter: GRUPO Ballard MD Received for:Anne Camargo Nov 27 2018 2:56PM Eastern Standard Time Normal [facility] Vital Signs Date Time Vital Sign Value Performing Clinician Facility 07-07-2020 12:09-0400 BP Diastolic 65 mm[Hg] Jose Wilson [facility] , [place] 07-07-2020 12:09-0400 BP Systolic 127 mm[Hg] Jose Wilson [facility] , [place] 07-07-2020 12:09-0400 Pulse (Heart Rate) 72 /min Jose Wilson [facility], [place] 07-07-2020 12:09-0400 Pulse Oximetry 98 % Jose Wilson [facility] , [place] 07-07-2020 12:09-0400 Respiratory Rate 16 /min Jose Wilson [facility] , [place] 07-07-2020 09:37-0400 Body Temperature 97.5 [degF] Jose Wilson [facility] , [place] 07-07-2020 09:36-0400 BMI (Body Mass Index) 41.2 kg/m2 Jose Wilson [facility], [place] 07-07-2020 09:36-0400 Body weight 108.86 kg Jose Wilson [facility] , [place] 07-07-2020 09:36-0400 Height 162.6 cm Jose Wilson [facility] [place] NEGATED: Highlighted [id number] 10:52-0500 BMI (Body Mass Index) 39.79 kg/m2 Jessica Lorence AT [facility] Work Phone: NEGATED: Highlighted [id number] 10:52-0500 Body weight 104.78 kg Jessica Lorence AT [facility] Work Phone: NEGATED: Highlighted [id number] 10:52-0500 Body weight 105 kg Jessica Lorence AT [facility] Work Phone: NEGATED: Highlighted [id number] 10:52-0500 Heart rate 2+ Jessica Lorence AT [facility] Work Phone: NEGATED: Highlighted [id number] 10:52-0500 Height 162.56 cm Jessica Lorence AT [facility] [place] [facility] Work Phone: NEGATED: Highlighted [id number] 10:52-0500 Height 163 cm Jessica Lorence AT [facility] [place] [facility] Work Phone: NEGATED: Highlighted [id number] 13:41-0500 BMI (Body Mass Index) 39.79 kg/m2 [facility] AT [facility] Work Phone: NEGATED: Highlighted [id number] 13:41-0500 Body weight 104.78 kg Marjan Marga AT [facility] [place] [facility] Work Phone: NEGATED: Highlighted [id number] 13:41-0500 Body weight 105 kg Marjan Marga AT [facility] [place] [facility] Work Phone: NEGATED: Highlighted [id number] 13:41-0500 BP Diastolic 0 mm[Hg] Marjan Marga AT [facility] [place] [facility] Work Phone: NEGATED: Highlighted [id number] 13:41-0500 BP Systolic 0 mm[Hg] Marjan Marga AT [facility] [place] [facility] Work Phone: NEGATED: Highlighted [id number] 13:41-0500 Heart rate 2+ Marjan Marga AT [facility] [place] [facility] Work Phone: NEGATED: Highlighted [id number] 13:41-0500 Height 162.56 cm Marjan Marga AT [facility] [place] [facility] Work Phone: NEGATED: Highlighted [id number] 13:41-0500 Height 163 cm Marjan Marga AT [facility] [place] [facility] Work Phone: NEGATED: Highlighted [id number] 13:41-0500 Pulse (Heart Rate) 0 /min [facility] AT [facility] Work Phone: NEGATED: Highlighted [id number] 15:04-0500 BMI (Body Mass Index) 40.31 kg/m2 [facility] Work Phone: NEGATED: Highlighted [id number] 15:04-0500 Body weight 106.14 kg Marjan Gresham AT [facility] Work Phone: NEGATED: Highlighted [id number] 15:04-0500 Body weight 106 kg Marjan Gresham AT [facility] Work Phone: NEGATED: Highlighted [id number] 15:04-0500 BP Diastolic 0 mm[Hg] Marjanran LanceMarga AT [facility] Work Phone: NEGATED: Highlighted [id number] 15:04-0500 BP Systolic 0 mm[Hg] Marjan Gresham AT [facility] Work Phone: NEGATED: Highlighted [id number] 15:04-0500 Heart rate 2+ Marjan Gresham AT [facility] Work Phone: NEGATED: Highlighted [id number] 15:04-0500 Height 162.56 [facility] Work Phone: NEGATED: Highlighted [id number] 15:04-0500 Height 163 cm Marjanran Gresham [facility] Work Phone: NEGATED: Highlighted [id number] 15:04-0500 Pulse (Heart Rate) 0 /min [facility] Work Phone: Encounters Encounter Date Encounter Type Care Provider Facility Start: 04-04-2024 End: 04-04-2024 ambulatory Kyle Chi Jose Facility:[facility] Start: 04-03-2024 End: 04-03-2024 ambulatory Kyle Chi Jose Facility:[facility] Start: 03-31-2024 End: 07-22-2024 ambulatory Kyle Chi Jose Facility:[facility] Start: 04-10-2023 End: 04-10-2023 ambulatory [facility] Work Phone: Start: 04-10-2023 End: 04-10-2023 Patient encounter procedure [facility] Work Phone: Start: 03-27-2023 End: 03-27-2023 Patient encounter procedure [facility], Phy Office 3rd Flr Start: 01-23-2023 End: 01-23-2023 ambulatory Facility:[facility] Start: 05-05-2022 End: 05-05-2022 ambulatory [facility] Work Phone: Start: 05-05-2022 End: 05-05-2022 Patient encounter procedure [facility] Breast [facility] Start: 04-25-2022 End: 04-25-2022 ambulatory [facility] Work Phone: Start: 04-25-2022 End: 04-25-2022 Patient encounter procedure [facility] Start: 03-20-2022 End: 03-20-2022 [facility] Start: 11-22-2020 End: 11-22-2020 Subsequent hospital visit by physician Sana Soto Work Phone: [facility] CT Scan Comment on above: Arrived Start: 08-27-2020 End: 08-28-2020 Patient encounter procedure Evan REYES Work Phone: [facility] Work Phone: Start: 07-26-2020 End: 07-26-2020 Patient encounter procedure Sana Soto MD Work Phone: [facility] Work Phone: Start: 07-07-2020 End: 07-07-2020 Emergency department patient visit Jose Malgorzata Work Phone: [facility] ED Comment on above: Plantar fascial fibr omatosis (Primary Dx); Acute right ankle pain Start: 11-27-2018 Patient encounter procedure SWAPNA WILD Facility:[id number] Procedures Date Procedure Procedure Detail Performing Clinician Start: 05-05-2022 Mammography Start: 05-05-2022 Ultrasonography of breast Start: 04-25-2022 Screening mammography Start: 11-22-2020 Ct lower extremity w /o contrast material Sana Soto Work Phone: Start: 08-27-2020 End: 08-27-2020 [facility] ([facility]) Evan Carl PAC Work Phone: Start: 08-27-2020 End: 08-28-2020 Blood pressure screening not performed - reason not given Evan Carl PAC Work Phone: Start: 08-27-2020 End: 08-28-2020 BMI documented as above normal parameters - follow-up documented Evan Carl PAC Work Phone: Start: 08-27-2020 End: 08-28-2020 Documentation of current medications Evan Carl PAC Work Phone: Start: 08-27-2020 End: 08-28-2020 Pain assessment not documented - reason not given Evan Carl PAC Work Phone: Start: 08-27-2020 End: 08-28-2020 Tobacco non-user Evan Carl PAC Work Phone: Start: 07-26-2020 End: 07-26-2020 Blood pressure within normal parameters - no follow-up required Sana Soto MD Work Phone: Start: 07-26-2020 End: 07-26-2020 BMI documented as above normal parameters - follow-up documented Sana Stoo MD Work Phone: Start: 07-26-2020 End: 07-26-2020 Documentation of current medications Sana Soto MD Work Phone: Start: 07-26-2020 End: 07-26-2020 Pain assessment documented as positive - follow-up documented Sana Soto MD Work Phone: Start: 07-26-2020 End: 07-26-2020 Tobacco non-user Sana Soto MD Work Phone: Start: 07-07-2020 Radex ankle complete minimum 3 views Jose Mcgarry Work Phone: NEGATED: Highlighted rowStart: 08-27-2020 End: 08-27-2020 Documentation of current medications Jessica Catherine AT NEGATED: Highlighted rowStart: 07-26-2020 End: 07-26-2020 Documentation of current medications Marjanran Gresham AT NEGATED: Highlighted rowStart: 07-12-2020 End: 07-12-2020 Documentation of current medications Marjan Marga AT Plan of Treatment Date Care Activity Detail Author Start: 09-27-2020 End: 09-27-2020 Appointment Appointment [facility] Work Phone: Start: 09-17-2020 End: 09-17-2020 Appointment Appointment [facility] Work Phone: Start: 08-27-2020 End: 08-27-2020 Appointment Appointment [facility] Work Phone: Start: 08-19-2020 End: 08-19-2020 Appointment Appointment [facility] Work Phone: Start: 08-13-2020 End: 08-13-2020 Appointment Appointment [facility] Work Phone: Start: 07-26-2020 End: 07-26-2020 Appointment Appointment [facility] Work Phone: Start: 07-12-2020 End: 07-12-2020 Appointment Appointment [facility] Work Phone: Start: 07-12-2020 End: 07-12-2020 Mri any jt lower extrem w/o contrast matrl MRI right ankle without contrast [facility] Work Phone: Start: 07-12-2020 End: 07-12-2020 Radex foot complete minimum 3 views XR FOOT 3+ VWS-RT [facility] Work Phone: Start: 05-11-2020 Influenza vaccination Flu vaccine (#1) [place], [place] Start: 2016 Pneumococcal 65+ years Vaccine (1 of 1 - PPSV23) Pneumococcal 65+ years Vaccine (1 of 1 - PPSV23) [facility] Work Phone: Start: 2006 Screening for osteoporosis DEXA (modify frequency per FRAX score) [facility] Work Phone: Start: 2001 Screening for malignant neoplasm of breast Breast cancer screen [facility] Work Phone: Start: 2001 Screening for malignant neoplasm of colon Colon cancer screen colonoscopy [facility] Work Phone: Start: 2001 Shingles Vaccine (1 of 2) Shingles Vaccine (1 of 2) [facility] Work Phone: Start: 1991 Diabetes screen Diabetes screen [facility] Work Phone: Start: 1991 Lipid panel Lipid screen [facility] Work Phone: Start: 1970 DTaP/Tdap/Td vaccine (1 - Tdap) DTaP/Tdap/Td vaccine (1 - Tdap) [facility] Work Phone: Start: 1967 COVID-19 Vaccine (1) COVID-19 Vaccine (1) [facility] Work Phone: Start: 1951 Creatinine measurement Creatinine monitoring [place], [place] Start: 1951 Hepatitis C screening Hepatitis C screen [facility] Work Phone: Start: 1951 Potassium monitoring Potassium monitoring [place], [place] Payers Date Payer Category Payer Self-pay [id number] 2016 Medicare [id number] 2016 Unknown [id number] 1950 Unknown [id number] Unknown [id number] Unknown [id number] Unknown [id number] Social History Date Type Detail Facility Start: 07-07-2020 Tobacco smoking status NHIS Never smoker [place] Start: 07-07-2020 Tobacco use and exposure Never used [place] Start: 07-07-2020 Alcohol intake Lifetime non-drinker (finding) [place] Start: 07-07-2020 History SDOH Alcohol Frequency 1 [place], [place] Sex Assigned At Not on file [place] Exposure to SARS-CoV-2 (event) Not sure [place] Start: 07-26-2020 End: 08-28-2020 Assertion Unknown if ever smoked [facility] Work Phone: Start: 1950 Sex Assigned At Female W [facility] NEGATED: Highlighted rowStart: 07-12-2020 End: 07-12-2020 Alcohol use Alcohol use [facility] Work Phone: NEGATED: Highlighted rowStart: 07-12-2020 End: 07-12-2020 Details of drug misuse behavior Details of drug misuse behavior [facility] Work Phone: NEGATED: Highlighted rowStart: 07-12-2020 End: 07-12-2020 Assertion Never smoker [facility] Work Phone: Progress note 01-23-2023 Note Date & Type Note Facility 01-23-2023 Note HNO ID: [id number] Author: Nick Bueno APRN.TRANSPORTATION PLANNER Service: ? Author Type: Nurse Practitioner Type: Progress Notes Filed: 01/23/2023 2:41 PM Note Text: This note was created using Kynogonriter. Subjective Omaira Billingsley is a 72 year old female. HPI by patient: Omaira is a 72 year old presenting to the office with the complaint of cough Started approximately Sunday Associated symptoms include cough, coughing up green stuff. Feels like its going lower and lower in her chest. Gets this every year. Was cleaning out her garage and noticed these symptoms started shortly after that. Not concerned for covid because besides sabianist she has not been anymore. She notes she has had yellow sputum that quickly turned green. Has sinus pain and pressure on Sunday that has now resolved. Possible body aches at that time too. Denies any other concerns Covid Immunization Dates Overdue - COVID-19 VACCINE (1) Overdue - never done No completion, postpone, frequency change, or communication history exists for this topic. Sick contacts: no Smoking history/second hand smoke: no OTC [facility] children cough medicine and a [employer] [employer] No antibiotic use in the last 60 days. ALLERGIES Aspirin Hives Comment:Other reaction(s): Ringing in ears heart palpitat House Dust Mite Unknown Insect Venom Unknown Iodine Unknown Latex Shortness of Breath Mold Unknown Peanut Unknown Shellfish Containin* Unknown Soy Protein Unknown [id number] Red* Other: See Comments No family history on file. Social History Tobacco Use Smoking status: Never Smokeless tobacco: Never Review of Systems Constitutional: Negative for chills and fever. HENT: Positive for congestion, postnasal drip and rhinorrhea. Negative for ear pain and sore throat. Respiratory: Positive for cough. Cardiovascular: Negative for chest pain. Allergic/Immunologic: Negative for immunocompromised state. Hematological: Negative for adenopathy. Objective BP 124/70 Pulse 77 Wt 113.9 kg (251 lb) SpO2 96% Physical Exam Vitals and nursing note reviewed. HENT: Right Ear: Tympanic membrane and ear canal normal. Left Ear: Tympanic membrane and ear canal normal. Nose: Congestion present. No rhinorrhea. Mouth/Throat: Pharynx: Uvula midline. No oropharyngeal exudate or posterior oropharyngeal erythema. Cardiovascular: Rate and Rhythm: Normal rate and regular rhythm. Heart sounds: Normal heart sounds. Pulmonary: Effort: Pulmonary effort is normal. No respiratory distress. Breath sounds: Normal breath sounds. No stridor. No wheezing, rhonchi or rales. Chest: Chest wall: No tenderness. Lymphadenopathy: Cervical: No cervical adenopathy. Skin: General: Skin is warm and dry. Neurological: Mental Status: She is alert and oriented to person, place, and time. Assessment and Plan ASSESSMENT/PLAN: 1. Acute cough - ICD9: 786.2, ICD10: R05.1 - GUAIFENESIN ER 600 MG TABLET, EXTENDED RELEASE 12 HR - DOXYCYCLINE MONOHYDRATE 100 MG TABLET Nick Bueno APRN.CNP Medical Decision Making: Problems: Moderate: New problem with uncertain prognosis Data: Unique source(s) for external note(s) reviewed: 1 Risk: Moderate: Drug management Medical Decision Making Level: 4 - Moderate [facility] Evaluation note Note Date & Type Note Facility Evaluation note No assessment information availa [facility] Work Phone: Summary Purpose Family History No Family History Records FoundNo Family History Records FoundThere may be information available, but it has not been provided by the sender.There may be information available, but it has not been provided by the sender.There may be information available, but it has not been provided by the sender.No Family History Records FoundNo Family History Records FoundNo Family History Records Found Advance Directives No Advanced Directives Records FoundNo Advanced Directives Records FoundThere may be information available, but it has not been provided by the sender.There may be information available, but it has not been provided by the sender.There may be information available, but it has not been provided by the sender.No Advanced Directives Records FoundNo Advanced Directives Records FoundNo Advanced Directives Records Found Discharge Instructions * Attachments The following attachments cannot be sent through Care Everywhere. * Plantar Fasciitis (Belarusian) documented in this encounter Assessments Diagnosis Plantar fascial fibromatosis Acute right ankle pain Chief Complaint Chief Complaint Description Start Date right ankle pain Preliminary chief co mplaint data, not yet signed by the author as of Chief Complaint Description Start Date right ankle pain Preliminary chief co mplaint data, not yet signed by the author as of Chief Complaint Description Start Date right foot post Arthrodesis of the talonavicular joint arthrodesis subtalar joint autograft and autologous bone grafting on 08/19/2020 Preliminary chief co mplaint data, not yet signed by the author as of Instructions Instruction Description Start Date CompletedPatient advised to follow-up with Primary Care Physician for BMI management. Instruction Description Start Date CompletedPatient advised to follow-up with Primary Care Physician for BMI management. Instruction Description Start Date CompletedPatient advised to follow-up with Primary Care Physician for BMI management. Review of System There may be information available, but it has not been provided by the sender.There may be information available, but it has not been provided by the sender.There may be information available, but it has not been provided by the sender. History of Present Illness There may be information available, but it has not been provided by the sender.There may be information available, but it has not been provided by the sender.There may be information available, but it has not been provided by the sender. Chief Complaint and Reason for Visit Chief Complaint SCREENING Chief Complaint SCREENING ABNORMAL MAMMOGRAM Additional Source Comments INFORMATION SOURCE (unrecogn ized section and content) DATE CREATED AUTHOR 11/27/2018 [facility] DATE CREATED AUTHOR AUTHOR'S ORGANIZ ATION 06/02/2019 [employer] DATE CREATED AUTHOR AUTHOR'S ORGANIZ ATION 11/25/2020 [facility] DATE CREATED AUTHOR AUTHOR'S ORGANIZ ATION 01/24/2023 [facility] DATE CREATED AUTHOR AUTHOR'S ORGANIZ ATION 04/30/2024 [facility] Reason for Visit (unrecogniz ed section and content) Reason Comments Ankle Pain Foot Pain Reason For Visit Description Start Date New - 1st visit with practice Preliminary reason f or visit data, not yet signed by the author as of right ankle pain Reason For Visit Description Start Date Test Result Preliminary reason f or visit data, not yet signed by the author as of right ankle pain Reason For Visit Description Start Date Postop - 1st visit Preliminary reason f or visit data, not yet signed by the author as of right foot post Arthrodesis of the talonavicular joint arthrodesis subtalar joint autograft and autologous bone grafting on 08/19/2020 Goals (unrecognized section and content) Goals may be documented in a n alternate sectionGoals may be documented in an alternate sectionGoals may be documented in an alternate section Care Teams (unrecognized sec tion and content) Team Status: Active Member Role Status Dates Dr. Kyle Garcia MD Family Provider Active Dr. Kyle Garcia MD Primary Care Provider Active Team Status: Inactive Member Role Status Dates Dr. Kyle Garcia MD Primary Care Provi qing, Attending Provider, Referring Provider Active Team Status: Inactive Member Role Status Dates Dr. Kyle Garcia MD Primary Care Provider, Attending Provider Active FOR RECORDS PERTAINING TO PATIENTS WHO ARE OR HAVE BEEN ENROLLED IN A CHEMICAL DEPENDENCY/SUBSTANCEABUSE PROGRAM, SOME INFORMATION MAY BE OMITTED. This clinical summary was aggregated from multiple sources. Caution should be exercised in using it in the provision of clinical care. This summary normalizes information from multiple sources, and as a consequence, information in this document may materially change the coding, format and clinical context of patient data. In addition, data may be omitted in some cases. CLINICAL DECISIONS SHOULD BE BASED ON THE PRIMARY CLINICAL RECORDS. [employer] provides no warranty or guarantee of the accuracy or completeness of information in this document.
== END | disposition home or self-care (01) ==
LOC: POLAB3 09:48
PROVIDERS: PCP Family Medicine Geriatric Medicine; Visit Provider Family Medicine Geriatric Medicine
DX: I10 Essential (primary) hypertension (principal); E55.9 Vitamin D deficiency, unspecified
CPT/HCPCS: 36415; 80053; 82306; 84443; 85025

== ENCOUNTER 2025-04-10 07:43 | Outpatient (CLI) | payer MEDICARE, OTHER, SELFPAY ==
--- NOTE | 2025-04-10 07:55 | US_ITS ---
PROCEDURE: ABDOMEN LIMITED 04/10/2025 REASON FOR EXAM: ELEVATED LIVER ENZYMES COMPARISON: None FINDINGS: Liver: Diffusely echogenic suggesting fatty infiltration. The liver measures 17.9 cm. Gallbladder: Sludge and gallstones within the gallbladder lumen. The gallbladder wall measures 2.1 mm. Common bile duct: Normal measuring 3 mm . Pancreas: Other: The right kidney measures 13.6 cm 6 cm 4.6 cm. There is a 4.6 cm x 4.2 cm 3.9 cm cyst in the lower pole. There is also evidence of a 1.6 cm x 1.5 cm x 1.4 cm hypoechoic solid nodule in the inferior pole. This needs to be characterize further. Correlation with CT scan recommended. US/Abdomen Limited IMPRESSION: Multiple gallstones. Fatty infiltration of the liver. Right renal cysts. 1.6 cm 1.5 cm 1.4 cm hypoechoic solid nodule in the lower pole of the right kid drew. Correlation with CT scan recommended. Reading Location: [facility]
--- OUTSIDE RECORDS SUMMARY | 2025-04-10 08:05 | XMS RPT_ITS | CCD ---
Author Organization [facility] Care Team Providers Care Environmental Attorney Name Role Phone SWAPNA WILD Attending Unavailable Jose, Kyle-chi Referring Unavailable Jose, Kyle-chi Primary Care Unavailable Unavailable Primary Care Provider Sana Glasgow MD Unavailable Evan Devi Unavailable Jose RIDER, Dr. Kyle Dodge Primary Care Provider Dr. Kyle Garcia MD, Chi Attending Provider [phone] Jose, Kyle Chi Referring Unavailable Jose, Kyle Chi Attending Unavailable Jose, Kyle Chi Primary Care Unavailable Jose, Kyle Chi Attending Unavailable Jose, Kyle Chi Primary Care Unavailable Jose, Kyle Chi Primary Care Unavailable Jose, Kyle Chi Attending Unavailable Allergies Allergy Classification Reported Allergen(s) Allergy Type Date of Onset Reaction(s) Facility (3 sources) Aluminum aspirin; Translations: [ASPIRIN] Drug Allergy 9 [place], [place] (5 sources) Hmg-Coa Reductase Inhibitors (Statins) Propensity to adverse reactions to drug 0 [place] (5 sources) Latex; Translations: [LATEX] Propensity to adverse reactions to drug 0 [place] (5 sources) Aspirin Drug Allergy 0 [facility] Work Phone: (2 sources) House dust mite; Translations: [DUST MITES] allergy to substance 0 [facility] Work Phone: (2 sources) Iodine Drug Allergy 0 [facility] Work Phone: (2 sources) Mold Extract; Translations: [MOLD] Drug Allergy 0 [facility] Work Phone: (2 sources) peanut; Translations: [PEANUTS] food allergy 0 [facility] Work Phone: (2 sources) Shellfish; Translations: [SHELLFISH] food allergy 0 [facility] Work Phone: (2 sources) Soy protein; Translations: [SOY] food allergy 0 [facility] Work Phone: (2 sources) STINGING INSECTS; Translations: [STINGING INSECTS] allergy to substance 0 [facility] Work Phone: Medications Current Medications Medication [...] 6 hours as needed for pain HYDROCODONE-ACETAMI JAYLAHEN [id number] Evan REYES ascorbic acid 1000 mg oral tablet (3 sources) Vitamin C Start: 07-12-2020 VITAMIN C 1000 MG TABS 1 tablet as needed as directed ASCORBIC ACID [id number] Renuka Solitario BILBERRY (VACCINIUM MYRTILLUS) CAPS (2 sources) Start: 07-12-2020 BILBERRY CAPS as directed as needed BILBERRY (VACCINIUM MYRTILLUS) CAPS [id number] Yamile Beck VAUGHANN cholecalciferol 1000 unt oral tablet (3 sources) Vitamin D Start: 07-12-2020 VITAMIN D3 25 MCG (1000 UT) TABS 1 tablet once daily CHOLECALCIFEROL [id number] Renuka Solitario hydroCHLOROthiazide 12.5 mg / lisinopril 10 mg oral tablet (3 sources) Thiazide Diuretic, Angiotensin Converting Enzyme Inhibitor Start: 07-12-2020 LISINOPRIL-HYDROCHL OROTHIAZIDE 10-12.5 MG TABS 1 tablet twice daily LISINOPRIL-HYDROCHL OROTHIAZIDE [id number] Renuka Solitario Lysine (2 sources) Start: 07-12-2020 L-LYSINE TABS as directed as needed LYSINE TABS [id number] Yamile Solares LPN MULTIPLE VITAMINS-MINERALS (1 source) Start: 07-12-2020 ONE DAILY MULTIVITAMIN ADULT TABS 1 tablet once daily MULTIPLE VITAMINS-MINERALS [id number] Renuka Solitario MULTIPLE VITAMINS-MINERALS (2 sources) Start: 07-12-2020 MULTIVITAMIN ADULT TABS as directed MULTIPLE VITAMINS-MINERALS [id number] Yamile Solares LPN ondansetron 4 mg oral tablet (1 source) Serotonin-3 Receptor Antagonist Start: 08-19-2020 ONDANSETRON HCL 4 MG TABS Take 1 tab by mouth every 6-8 hours as needed for nausea ONDANSETRON HCL [id number] Sana Soto MD Problems Active Problems Problem [...] 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), right foot] Onset: 07-12-2020 07-12-2020 Essential hypertension (1 source) Essential (primary) hypertension; Translations: [Essential (primary) hypertension] Onset: 04-07-2025 Chronic Other acquired deformities (3 sources) Equinus contracture of the ankle; Translations: [Contracture, right ankle] Onset: 07-12-2020 07-12-2020 Chronic Other connective tissue disease (1 source) Plantar fascial fibromatosis; 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 Other liver diseases (1 source) Abnormal levels of other serum enzymes; Translations: [Abnormal levels of other serum enzymes] Onset: 04-08-2025 Episodic Other non-traumatic joint disorders (2 sources) [...] Test Name Value Interpretation Reference Range Facility Absolute lymphocyte countOrd ered By: Kyle Garcia on 04-01-2025 Lymphocytes Auto (Unsp spec) [#/Vol] 2.18 10*3/uL 0.83-4.51 [facility] Absolute neutrophil countOrd ered By: Kyle Garcia on 04-01-2025 Neutrophils (Bld) [#/Vol] 3.6 10*3/uL 2.0-7.7 [facility] Anion gap in Serum or Plasma Ordered By: Kyle Garcia on 04-01-2025 Anion gap [Moles/Vol] 12 mmol/L 5-15 [facility] Automated lymphocyte count a s percentage of total leukocytesOrdered By: Kyle Garcia on 04-01-2025 Lymphocytes/100 WBC Auto (Unsp spec) 34.0 % - [facility] BUN/creatinine ratioOrdered By: Kyle Garcia on 04-01-2025 Urea nitrogen/Creatinine [Mass ratio] 17.1 mg/mg 10- [facility] Basophil percentageOrdered B y: Kyle Garcia on 04-01-2025 Basophils/100 WBC (Bld) 0.5 % 0-1 [facility] Bilirubin, totalOrdered By: Kyle Garcia on 04-01-2025 Bilirubin [Mass/Vol] 0.98 mg/dL 0.00-1.30 [facility] CBC W/Diff, Automatedon 03-11 Absolute Lymph 2.18 X10 3/uL Normal 0.83-4.51 [facility] Comment on above: Performed By: #### L 100.0100, L500.4050, L501.9520, L506.1001 #### [facility] [address] [place], [address] Absolute Neut 3.6 X10 3/uL Normal 2.0-7.7 [facility] Comment on above: Performed By: #### L 100.0100, L500.4050, L501.9520, [id number] #### [facility] [address] [place], [address] Basophils/100 WBC (Bld) 0.5 % Normal 0-1 [facility] Comment on above: Performed By: #### L 100.0100, L500.4050, L501.9520, [id number] #### [facility] [address] [place], [address] Eosinophils/100 WBC (Bld) 1.9 % Normal 0-5 [facility] Comment on above: Performed By: #### L 100.0100, L500.4050, L501.9520, [id number] #### [facility] [address] [place], [address] Erythrocyte distribution width (RBC) [Ratio] 13.5 % Normal 11.6-14.6 [facility] Comment on above: Performed By: #### L 100.0100, L500.4050, L501.9520, [id number] #### [facility] [address] [place], [address] Hematocrit (Bld) [Volume fraction] 38.2 % Normal 37-47 [facility] Comment on above: Performed By: #### L 100.0100, L500.4050, L501.9520, [id number] #### [facility] [address] [place], [address] Hemoglobin (Bld) [Mass/Vol] 13.1 g/dL Normal 12.0-15.0 [facility] Comment on above: Performed By: #### L 100.0100, L500.4050, L501.9520, L506.1001 #### [facility] [address] [place], [address] IG% 0.200 Normal 0.0-0.9 [facility] Comment on above: Result Comment: IG% - Immature Granulocytes (promyelocytes, myelocytes and metamyelocytes) > 1% indicates that a LEFT SHIFT is Present. Performed By: #### L 100.0100, L500.4050, L501.9520, L506.1001 #### [facility] [address] [place], [address] Lymphocytes/100 WBC (Bld) 34.0 % Normal 19-41 [facility] Comment on above: Performed By: #### L 100.0100, L500.4050, L501.9520, [id number] #### [facility] [address] [place], [address] MCH (RBC) [Entitic mass] 30.3 pg Normal 27.0-32.0 [facility] Comment on above: Performed By: #### L 100.0100, L500.4050, L501.9520, L506.1001 #### [facility] [address] [place], [address] MCHC (RBC) [Mass/Vol] 34.3 g/dL Normal 32-36 [facility] Comment on above: Performed By: #### L 100.0100, L500.4050, L501.9520, L506.1001 #### [facility] [address] [place], [address] MCV (RBC) [Entitic vol] 88.2 fL Normal 81-99 [facility] Comment on above: Performed By: #### L 100.0100, L500.4050, L501.9520, L506.1001 #### [facility] [address] [place], [address] Monocytes/100 WBC (Bld) 7.3 % Normal 0-10 [facility] Comment on above: Performed By: #### L 100.0100, L500.4050, L501.9520, L506.1001 #### [facility] [address] [place], [address] Neutrophils/100 WBC (Bld) 56.1 % Normal 47-70 [facility] Comment on above: Performed By: #### L 100.0100, L500.4050, L501.9520, L506.1001 #### [facility] [address] [place], [address] Nucleated RBC (Bld) [#/Vol] 0 10*3/uL Normal 0-5 [facility] Comment on above: Performed By: #### L 100.0100, L500.4050, L501.9520, L506.1001 #### [facility] [address] [place], [address] Platelet mean volume (Bld) [Entitic vol] 8.9 fL Normal 6.2-12.0 [facility] Comment on above: Performed By: #### L 100.0100, L500.4050, L501.9520, L506.1001 #### [facility] [address] [place], [address] Platelets (Bld) [#/Vol] 344 10*3/uL Normal 150-450 [facility] Comment on above: Performed By: #### L 100.0100, L500.4050, L501.9520, L506.1001 #### [facility] [address] [place], [address] RBC (Bld) [#/Vol] 4.33 10*6/uL Normal 4.2-5.4 [facility] Comment on above: Performed By: #### L 100.0100, L500.4050, L501.9520, L506.1001 #### [facility] [address] [place], [address] RDW SD 44.0 fl High 35.1-43.9 [facility] Comment on above: Performed By: #### L 100.0100, L500.4050, L501.9520, [id number] #### [facility] [address] [place], [address] WBC (Bld) [#/Vol] 6.4 10*3/uL Normal 4.4-11.0 [facility] Comment on above: Performed By: #### L 100.0100, L500.4050, L501.9520, L506.1001 #### [facility] [address] [place], [address] Carbon dioxide, total [Moles /volume] in Central venous bloodOrdered By: Kyle Garcia on 04-01-2025 CO2 [Moles/Vol] 28.4 mmol/L 21.0-32.0 [facility] Chloride assayOrdered By: David Garcia on 04-01-2025 Chloride [Moles/Vol] 90 mmol/L Low 98-108 [facility] Comprehensive Metabolic Prof ilon 04-01-2025 Albumin [Mass/Vol] 4.1 g/dL Normal 3.4-4.8 [facility] Comment on above: Performed By: #### L 100.0100, L500.4050, L501.9520, L506.1001 #### [facility] [address] [place], [address] Albumin/Globulin [Mass ratio] 1.4 {ratio} Normal 0.9-2.4 [facility] Comment on above: Performed By: #### L 100.0100, L500.4050, L501.9520, L506.1001 #### [facility] [address] [place], [address] ALK PHOS 76 U/L Normal 35-104 [facility] Comment on above: Performed By: #### L 100.0100, L500.4050, L501.9520, [id number] #### [facility] [address] [place], [address] ALT [Catalytic activity/Vol] 44 U/L High <=34 [facility] Comment on above: Performed By: #### L 100.0100, L500.4050, L501.9520, L506.1001 #### [facility] [address] [place], [address] AST [Catalytic activity/Vol] 37 U/L High <=31 [facility] Comment on above: Result Comment: Hemo lysis present, Results??could be affected. ?? Performed By: #### L 100.0100, L500.4050, L501.9520, L506.1001 #### [facility] [address] [place], [address] Bilirubin [Mass/Vol] 0.98 mg/dL Normal 0.00-1.30 [facility] Comment on above: Performed By: #### L 100.0100, L500.4050, L501.9520, L506.1001 #### [facility] [address] [place], [address] BUN/CRE 17.1 RATIO Normal 10-20 [facility] Comment on above: Performed By: #### L 100.0100, L500.4050, L501.9520, L506.1001 #### [facility] [address] [place], [address] Calcium [Mass/Vol] 9.0 mg/dL Normal 7.6-11.0 [facility] Comment on above: Performed By: #### L 100.0100, L500.4050, L501.9520, L506.1001 #### [facility] [address] [place], [address] Chloride [Moles/Vol] 90 mmol/L Low 98-108 [facility] Comment on above: Performed By: #### L 100.0100, L500.4050, L501.9520, L506.1001 #### [facility] [address] [place], [address] CO2 [Moles/Vol] 28.4 mmol/L Normal 21.0-32.0 [facility] Comment on above: Performed By: #### L 100.0100, L500.4050, L501.9520, L506.1001 #### [facility] [address] [place], [address] Creatinine [Mass/Vol] 0.88 mg/dL Normal 0.70-1.20 [facility] Comment on above: Performed By: #### L 100.0100, L500.4050, L501.9520, L506.1001 #### [facility] [address] [place], [address] GAP 12 Normal 5-15 [facility] Comment on above: Performed By: #### L 100.0100, L500.4050, L501.9520, L506.1001 #### [facility] [address] [place], [address] GFR/1.73 sq M.predicted among non-blacks MDRD (S/P/Bld) [Vol rate/Area] 69 mL/min/{1.73_m2} Normal >60 [facility] Comment on above: Result Comment: mL/m in/1.73m2 CKD-EPI Creatinine Equation (2020) Performed By: #### L 100.0100, L500.4050, L501.9520, L506.1001 #### [facility] [address] [place], [address] Globulin (S) [Mass/Vol] 2.9 g/dL Normal 2.2-4.2 [facility] Comment on above: Performed By: #### L 100.0100, L500.4050, L501.9520, L506.1001 #### [facility] [address] [place], [address] Glucose [Mass/Vol] 96 mg/dL Normal 70-99 [facility] Comment on above: Performed By: #### L 100.0100, L500.4050, L501.9520, L506.1001 #### [facility] [address] [place], [address] Potassium [Moles/Vol] 3.9 mmol/L Normal 3.3-5.1 [facility] Comment on above: Result Comment: Hemo lysis present, Results??could be affected. ?? Performed By: #### L 100.0100, L500.4050, L501.9520, L506.1001 #### [facility] [address] [place], [address] Sodium [Moles/Vol] 130 mmol/L Low 133-145 [facility] Comment on above: Performed By: #### L 100.0100, L500.4050, L501.9520, L506.1001 #### [facility] [address] [place], [address] T PROT 7.1 g/dL Normal 5.9-8.4 [facility] Comment on above: Performed By: #### L 100.0100, L500.4050, L501.9520, L506.1001 #### [facility] [address] [place], [address] Urea nitrogen [Mass/Vol] 15 mg/dL Normal 4-19 [facility] Comment on above: Performed By: #### L 100.0100, L500.4050, L501.9520, L506.1001 #### [facility] [address] [place], [address] Eosinophil percentageOrdered By: Kyle Garcia on 04-01-2025 Eosinophils/100 WBC (Bld) 1.9 % 0-5 [facility] Erythrocyte distribution wid th ratioOrdered By: Kyle Garcia on 04-01-2025 Erythrocyte distribution width (RBC) [Ratio] 13.5 % 11.6-14.6 [facility] Erythrocyte distribution wid th standard deviationOrdered By: Kyle Garcia on 04-01-2025 Erythrocyte distribution width (RBC) [Ratio] 44.0 fl High 35.1-43.9 [facility] Glomerular filtration rate ( GFR) estimation/1.73 sq m using serum, plasma, or whole bOrdered By: Kyle Garcia on 04-01-2025 GFR/1.73 sq M.predicted among non-blacks MDRD (S/P/Bld) [Vol rate/Area] 69 mL/min/{1.73_m2} >60 [facility] Comment on above: mL/min/1.73m2 CKD-EP I Creatinine Equation (2020) Hematocrit Auto (Bld) [Volum e fraction]Ordered By: Kyle Garcia on 04-01-2025 Hematocrit (Bld) [Volume fraction] 38.2 % 37-47 [facility] Hemoglobin measurementOrdere d By: Kyle Jose on 04-01-2025 Hemoglobin (Bld) [Mass/Vol] 13.1 g/dL 12.0-15.0 [facility] Hepatitis Panel Acuteon - HEP B CORE,IgM Normal [facility] Comment on above: Result Comment: NEED TWO TUBES ONLY HAVE ONE Performed By: #### L 3000.0375 #### [facility] [address] [place], [place], [address] HEP B SURF AG Normal [facility] Comment on above: Result Comment: NEED TWO TUBES ONLY HAVE ONE Performed By: #### L 3000.0375 #### [facility] [address] [place], [place], [address] HEP C VIRUS AB Normal [facility] Comment on above: Result Comment: NEED TWO TUBES ONLY HAVE ONE Performed By: #### L 3000.0375 #### [facility] [address] [place], [place], [address] HEPATITIS A-IgM Normal [facility] Comment on above: Result Comment: NEED TWO TUBES ONLY HAVE ONE Performed By: #### L 3000.0375 #### [facility] [address] [place], [place], [address] Immature granulocytes/100 WB C Auto (Bld)Ordered By: Kyle Garcia on 04-01-2025 Immature granulocytes/100 WBC (Bld) 0.200 % 0.0-0.9 [facility] Comment on above: IG% - Immature Granu locytes (promyelocytes, myelocytes and metamyelocytes) > 1% indicates that a LEFT SHIFT is Present. Laboratory - Chemistry and C hemistry - challengeOrdered By: Kyle Garcia on 04-01-2025 AST [Catalytic activity/Vol] 37 U/L High <32 [facility] Comment on above: Hemolysis present, R esults could be affected. MCV (mean corpuscular volume ) determinationOrdered By: Kyle Garcia on 04-01-2025 MCV (RBC) [Entitic vol] 88.2 fL 81-99 [facility] Mean corpuscular hemoglobin (MCH) determinationOrdered By: Kyle Garcia on 04-01-2025 MCH (RBC) [Entitic mass] 30.3 pg 27.0-32.0 [facility] Mean corpuscular hemoglobin concentration (MCHC) determinationOrdered By: Kyle Garcia on 04-01-2025 MCHC (RBC) [Mass/Vol] 34.3 g/dL 32-36 [facility] Mean platelet volume determi nationOrdered By: Kyle Garcia on 04-01-2025 Platelet mean volume (Bld) [Entitic vol] 8.9 fL 6.2-12.0 [facility] Monocyte percentageOrdered B y: Kyle Garcia on 04-01-2025 Monocytes/100 WBC (Bld) 7.3 % 0-10 [facility] Neutrophil percentageOrdered By: Kyle Garcia on 04-01-2025 Neutrophils/100 WBC (Bld) 56.1 % 47-70 [facility] Nucleated red blood cell per centageOrdered By: Kyle Garcia on 04-01-2025 Nucleated RBC/100 WBC (Bld) [Ratio] 0 % 0-5 [facility] Platelet countOrdered By: David Garcia on 04-01-2025 Platelets (Bld) [#/Vol] 344 10*3/uL 150-450 [facility] Potassium measurement (mass/ volume)Ordered By: Klye Garcia on 04-01-2025 Potassium (Unsp spec) [Mass/Vol] 3.9 mmol/L 3.3-5.1 [facility] Comment on above: Hemolysis present, R esults could be affected. RBC Auto (Bld) [#/Vol]Ordere d By: Kyle Garcia on 04-01-2025 RBC (Bld) [#/Vol] 4.33 10*6/uL 4.2-5.4 [facility] Serum creatinine measurement (mass/volume)Ordered By: Kyle Garcia on 04-01-2025 Creatinine [Mass/Vol] 0.88 mg/dL 0.70-1.20 [facility] Serum globulin measurementOr dered By: Kyle Garcia on 04-01-2025 Globulin (S) [Mass/Vol] 2.9 g/dL 2.2-4.2 [facility] Serum glucose measurement (m ass/volume)Ordered By: Kyle Garcia on 04-01-2025 Glucose [Mass/Vol] 96 mg/dL 70-99 [facility] Serum or plasma alanine major otransferase (ALT) measurementOrdered By: Kyle Garcia on 04-01-2025 ALT [Catalytic activity/Vol] 44 U/L High <35 [facility] Serum or plasma albumin mili urement (mass/volume)Ordered By: Kyle Garcia on 04-01-2025 Albumin [Mass/Vol] 4.1 g/dL 3.4-4.8 [facility] Serum or plasma albumin/glob ulin mass ratioOrdered By: Kyle Garcia on 04-01-2025 Albumin/Globulin [Mass ratio] 1.4 {ratio} 0.9-2.4 [facility] Serum or plasma alkaline andrew sphatase measurementOrdered By: Kyle Garcia on 04-01-2025 ALP [Catalytic activity/Vol] 76 U/L 35-104 [facility] Serum or plasma calcium mili urement (mass/volume)Ordered By: Kyle Garcia on 04-01-2025 Calcium [Mass/Vol] 9.0 mg/dL 7.6-11.0 [facility] Serum or plasma urea nitroge n measurement (mass/volume)Ordered By: Kyle Garcia 04-01-2025 Urea nitrogen [Mass/Vol] 15 mg/dL 4-19 [facility] Sodium levelOrdered By: Kyle Garcia on 04-01-2025 Sodium [Moles/Vol] 130 mmol/L Low 133-145 [facility] TSH DL <= 0.005 mIU/L QnOrde red By: Kyle Garcia on 04-01-2025 TSH Qn 0.730 uIU/mL 0.300-4.200 [facility] Thyroid Stim Hormone (TSH)on 04-01-2025 TSH 0.730 uIU/mL Normal 0.300-4.200 [facility] Comment on above: Performed By: #### L 100.0100, L500.4050, L501.9520, L506.1001 #### [facility] [address] [place], [address] Total proteinOrdered By: Kyle Garcia on 04-01-2025 Protein [Mass/Vol] 7.1 g/dL 5.9-8.4 [facility] Vitamin D,25 Hydroxyon 04-01 Vitamin D 25-OH 31.0 ng/mL Normal 30-100 [facility] Comment on above: Result Comment: Mary min D Status Deficiency: <20 ng/mL (50nmol/L) Insufficiency: 20-30 ng/mL (50-75 nmol/L) Sufficiency: 30-100 ng/mL (75-250 nmol/L) Toxicity: >100 ng/mL (>250 nmol/L) Performed By: #### L 100.0100, L500.4050, L501.9520, L506.1001 #### [facility] [address] [place], [address] White blood cell (WBC) count Ordered By: Kyle Garcia on 04-01-2025 WBC (Bld) [#/Vol] 6.4 10*3/uL 4.4-11.0 [facility] Basophil percentageOrdered B y: Kyle Garcia on 04-10-2023 Chloride [Moles/Vol] 96 mmol/L 98-107 [facility] Glucose [Mass/Vol] 92 mg/dL 74-106 [facility] Potassium [Moles/Vol] 4.0 mmol/L 3.5-5.1 [facility] Sodium [Moles/Vol] 133 mmol/L 136-145 [facility] Laboratory - Chemistry and C hemistry - challengeOrdered By: Kyle Garcia on 04-10-2023 CO2 [Moles/Vol] 33.0 mmol/L 21.0-32.0 [facility] Urea nitrogen/Creatinine [Mass ratio] 14.5 mg/mg 10-20 [facility] No Panel InformationOrdered By: Kyle Garcia on 04-10-2023 Estimated GFR (MDRD) Amer 73 mL/min >60 [facility] Comment on above: GFR Calc Estimated GFR (MDRD) Non-Af Amer 60 mL/min >60 [facility] Comment on above: Non- GFR Calc Serum or plasma calcium mili urement (mass/volume)Ordered By: Kyle Garcia on 04-10-2023 Calcium [Mass/Vol] 8.8 mg/dL 8.5-10.1 [facility] [facility] Serum or plasma creatinine m easurement (mass/volume)Ordered By: Kyle Garcia on 04-10-2023 Creatinine [Mass/Vol] 0.97 mg/dL 0.55-1.02 [facility] Comment on above: The validity of the calculated GFR & GFRAA in patients over 70 years has not been determined. Clinical correlation is essential. Serum or plasma urea nitroge n measurement (mass/volume)Ordered By: Kyle Garcia on 04-10-2023 Urea nitrogen [Mass/Vol] 14 mg/dL 7-18 [facility] Thin prep Papanicolaou smear with manual screeningOrdered By: Kyle Garcia on 04-10-2023 Thin prep Papanicolaou smear with manual screening 4 5-15 [facility] Absolute lymphocyte countOrd ered By: Kyle Garcia on 03-27-2023 Lymphocytes Auto (Unsp spec) [#/Vol] 2.06 10*3/uL 0.83-4.51 [facility] Basophil percentageOrdered B y: Kyle Garcia on 03-27-2023 Basophils/100 WBC (Bld) 0.5 % 0-1 [facility] Bilirubin [Mass/Vol] 1.10 mg/dL 0.20-1.00 [facility] Comment on above: For patients on eltr ombopag therapy, use of Dimension [place] TBIL is not recommended. Chloride [Moles/Vol] 93 mmol/L 98-107 [facility] Eosinophils/100 WBC (Bld) 1.2 % 0-5 [facility] Glucose [Mass/Vol] 95 mg/dL 74-106 [facility] Neutrophils (Bld) [#/Vol] 3.2 10*3/uL 2.0-7.7 [facility] Neutrophils/100 WBC (Bld) 55.2 % 47-70 [facility] Potassium [Moles/Vol] 3.3 mmol/L 3.5-5.1 [facility] Protein [Mass/Vol] 7.5 g/dL 6.4-8.2 [facility] Sodium [Moles/Vol] 134 mmol/L 136-145 [facility] WBC (Bld) [#/Vol] 5.8 10*3/uL 4.4-11.0 [facility] Blood erythrocytes count (nu mber/volume)Ordered By: Kyle Garcia on 03-27-2023 RBC (Bld) [#/Vol] 4.44 10*6/uL 4.2-5.4 [facility] Blood hemoglobin measurement (mass/volume)Ordered By: Kyle Garcia on 03-27-2023 Hemoglobin (Bld) [Mass/Vol] 13.5 g/dL 12.0-15.0 [facility] Blood lymphocytes/100 leukoc ytesOrdered By: Kyle Garcia on 03-27-2023 Lymphocytes/100 WBC (Bld) 35.7 % 19-41 [facility] Blood monocytes/100 leukocyt esOrdered By: Kyle Gacria on 03-27-2023 Monocytes/100 WBC (Bld) 6.9 % 0-10 [facility] Blood platelet mean volumeOr dered By: Kyle Garcia on 03-27-2023 Platelet mean volume (Bld) [Entitic vol] 9.4 fL 6.2-12.0 [facility] Determination of erythrocyte mean corpuscular volume (MCV)Ordered By: Kyle Garcia on 03-27-2023 MCV (RBC) [Entitic vol] 92.1 fL 81-99 [facility] Hematocrit Auto (Bld) [Volum e fraction]Ordered By: Kyle Garcia on 03-27-2023 Hematocrit (Bld) [Volume fraction] 40.9 % 37-47 [facility] Laboratory - Chemistry and C hemistry - challengeOrdered By: Kyle Garcia on 03-27-2023 ALP [Catalytic activity/Vol] 70 U/L 45-117 [facility] ALT [Catalytic activity/Vol] 40 U/L 13-56 [facility] CO2 [Moles/Vol] 33.0 mmol/L 21.0-32.0 [facility] Globulin (S) [Mass/Vol] 3.8 g/dL 2.2-4.2 [facility] Urea nitrogen/Creatinine [Mass ratio] 14.3 mg/mg 10-20 [facility] Laboratory - Hematology and Cell countsOrdered By: Kyle Garcia on 03-27-2023 Erythrocyte distribution width (RBC) [Entitic vol] 47.1 fL 35.1-43.9 [facility] Erythrocyte distribution width (RBC) [Ratio] 14.0 % 11.6-14.6 [facility] Immature granulocytes/100 WBC (Bld) 0.500 % 0.0-0.9 [facility] Comment on above: IG% - Immature Granu locytes (promyelocytes, myelocytes and metamyelocytes) > 1% indicates that a LEFT SHIFT is Present. MCH (RBC) [Entitic mass] 30.4 pg 27.0-32.0 [facility] Nucleated RBC/100 WBC (Bld) [Ratio] 0 % 0-5 [facility] MCHC Auto (RBC) [Mass/Vol]Or dered By: Kyle Garcia on 03-27-2023 MCHC (RBC) [Mass/Vol] 33.0 g/dL 32-36 [facility] No Panel InformationOrdered By: Kyle Garcia on 03-27-2023 Estimated GFR (MDRD) Amer 66 mL/min >60 [facility] Comment on above: GFR Calc Estimated GFR (MDRD) Non-Af Amer 55 mL/min >60 [facility] Comment on above: Non- GFR Calc Thyroid Stimulating Hormone (TSH) 0.66 uIU/mL 0.358-3.74 [facility] Vitamin D 25-Hydroxy 50.2 ng/mL [facility] Comment on above: Vitamin D 25(OH) Sta tus Range Deficiency <20 ng/mL (50nmol/L) Insufficiency 20 - 30 ng/mL (50 - 75 nmol/L) Sufficiency 30 - 100 ng/mL (75 - 250 nmol/L) Toxicity >100 ng/mL (>250 nmol/L) Platelets bldOrdered By: Kyle Garcia on 03-27-2023 Platelets (Bld) [#/Vol] 363 10*3/uL 150-450 [facility] Serum or plasma albumin mili urement (mass/volume)Ordered By: Kyle Garcia on 03-27-2023 Albumin [Mass/Vol] 3.7 g/dL 3.2-5.0 [facility] Serum or plasma albumin/glob ulin mass ratioOrdered By: on 03-27-2023 Albumin/Globulin [Mass ratio] 1.0 {ratio} 0.9-2.4 [facility] Serum or plasma calcium mili urement (mass/volume)Ordered By: Kyle Garcia 03-27-2023 Calcium [Mass/Vol] 9.2 mg/dL 8.5-10.1 [facility] Serum or plasma creatinine m easurement (mass/volume)Ordered By: Kyle Garcia 03-27-2023 Creatinine [Mass/Vol] 1.05 mg/dL 0.55-1.02 [facility] Comment on above: The validity of the calculated GFR & GFRAA in patients over 70 years has not been determined. Clinical correlation is essential. Serum or plasma urea nitroge n measurement (mass/volume)Ordered By: Kyle Jose on 03-27-2023 Urea nitrogen [Mass/Vol] 15 mg/dL 7-18 [facility] Thin prep Papanicolaou smear with manual screeningOrdered By: Kyle Torresok 03-27-2023 Thin prep Papanicolaou smear with manual screening 24 U/L 15-37 [facility] Thin prep Papanicolaou smear with manual screening 8 5-15 [facility] CNOVon 01-23-2023 CNOV Office Visit (MARYJO) OMAIRA BILLINGSLEY ([id number]) 1950 F Date Time Provider Department 01/23/23 2:00 PM NICK BUENO During your visit today, we recorded the following information about you: Pulse Blood pressure Weight 77/minute 124/70 113.9 kg Nick Bueno APRN.GALLERY MANAGER 01/23/2023 2:41 PM Signed This note was created using AI Exchangeriter. Subjective Omaira Billingsley is a 72 year [...] that. Not concerned for covid because besides anabaptist she has not been anymore. She notes [...] Unknown Shellfish Containin* Unknown Soy Protein Unknown Dwcazvl-Xit-Ies Red* Other: See Comments No family history on file. Social History Tobacco Use Smoking status: Never Smokeless tobacco: Never Review of Systems Constitutional: Negative for chills and fever. HENT: Positive for congestion, postnasal drip and rhinorrhea. Negative for ear pain and sore throat. Respiratory: Positive for cough. Cardiovascular: Negative for chest pain. Allergic/Immunologic : Negative for immunocompromised state. Hematological: Negative for [...] Decision Making Level: 4 - Moderate Nick Bueon APRN.CNP 01/23/2023 2:41 PM Signed UPPER RESPIRATORY [...] while you are sick so you don't waste picker a different virus, or infect others. 8. [...] per day. The below information is from [email or web address] m: An (more content not included)... Normal [facility] Absolute lymphocyte counton 03-20-2022 Lymphocytes Auto (Unsp spec) [#/Vol] 2.29 10*3/uL 0.83-4.51 [facility] Work Phone: Basophil percentageon 2021 Basophils/100 WBC (Bld) 0.4 % 0-1 [facility] Work Phone: Bilirubin [Mass/Vol] 0.90 mg/dL 0.20-1.00 [facility] Work Phone: Comment on above: For patients on eltr ombopag therapy, use of Dimension [place] TBIL is not recommended. Chloride [Moles/Vol] 92 mmol/L 98-107 [facility] Work Phone: Eosinophils/100 WBC (Bld) 1.0 % 0-5 [facility] Work Phone: Glucose [Mass/Vol] 92 mg/dL 74-106 [facility] Work Phone: Neutrophils (Bld) [#/Vol] 4.3 10*3/uL 2.0-7.7 [facility] Work Phone: Neutrophils/100 WBC (Bld) 59.1 % 47-70 [facility] Work Phone: Potassium [Moles/Vol] 3.9 mmol/L 3.5-5.1 [facility] Work Phone: Protein [Mass/Vol] 7.7 g/dL 6.4-8.2 [facility] Work Phone: Sodium [Moles/Vol] 131 mmol/L 136-145 [facility] Work Phone: WBC (Bld) [#/Vol] 7.3 10*3/uL 4.4-11.0 [facility] Work Phone: Blood erythrocytes count (nu mber/volume)on 03-20-2022 RBC (Bld) [#/Vol] 4.39 10*6/uL 4.2-5.4 [facility] [place] Work Phone: Blood hemoglobin measurement (mass/volume)on 03-20-2022 Hemoglobin (Bld) [Mass/Vol] 13.4 g/dL 12.0-15.0 [facility] Work Phone: Blood lymphocytes/100 leukoc yteson 03-20-2022 Lymphocytes/100 WBC (Bld) 31.2 % 19-41 [facility] Work Phone: Blood monocytes/100 leukocyt eson 03-20-2022 Monocytes/100 WBC (Bld) 7.9 % 0-10 [facility] Work Phone: Blood platelet mean volumeon 03-20-2022 Platelet mean volume (Bld) [Entitic vol] 9.8 fL 6.2-12.0 [facility] Work Phone: Determination of erythrocyte mean corpuscular volume (MCV)on 03-20-2022 MCV (RBC) [Entitic vol] 91.3 fL 81-99 [facility] Work Phone: Hematocrit Auto (Bld) [Volum e fraction]on 03-20-2022 Hematocrit (Bld) [Volume fraction] 40.1 % 37-47 [facility] Work Phone: Laboratory - Chemistry and C hemistry - challengeon 03-20-2022 ALP [Catalytic activity/Vol] 68 U/L 45-117 [facility] Work Phone: ALT [Catalytic activity/Vol] 38 U/L 13-56 [facility] Work Phone: CO2 [Moles/Vol] 30.0 mmol/L 21.0-32.0 [facility] Work Phone: Globulin (S) [Mass/Vol] 4.0 g/dL 2.2-4.2 [facility] Work Phone: Urea nitrogen/Creatinine [Mass ratio] 17.5 mg/mg 10-20 [facility] Work Phone: Laboratory - Hematology and Cell countson 03-20-2022 Erythrocyte distribution width (RBC) [Entitic vol] 44.1 fL 35.1-43.9 [facility] Work Phone: Erythrocyte distribution width (RBC) [Ratio] 13.1 % 11.6-14.6 [facility] Work Phone: Immature granulocytes/100 WBC (Bld) 0.400 % 0.0-0.9 [facility] Work Phone: Comment on above: IG% - Immature Granu locytes (promyelocytes, myelocytes and metamyelocytes) > 1% indicates that a LEFT SHIFT is Present. MCH (RBC) [Entitic mass] 30.5 pg 27.0-32.0 [facility] Work Phone: Nucleated RBC/100 WBC (Bld) [Ratio] 0 % 0-5 [facility] Work Phone: MCHC Auto (RBC) [Mass/Vol]on 03-20-2022 MCHC (RBC) [Mass/Vol] 33.4 g/dL 32-36 [facility] Work Phone: No Panel Informationon 03-20 Estimated GFR (MDRD) Amer 68 mL/min >60 [facility] Work Phone: Comment on above: GFR Calc Estimated GFR (MDRD) Non-Af Amer 56 mL/min >60 [facility] Work Phone: Comment on above: Non- GFR Calc Thyroid Stimulating Hormone (TSH) 0.77 uIU/mL 0.358-3.74 [facility] Work Phone: Vitamin D 25-Hydroxy 42.3 ng/mL [facility] Work Phone: Comment on above: Vitamin D 25(OH) Sta tus Range Deficiency <20 ng/mL (50nmol/L) Insufficiency 20 - 30 ng/mL (50 - 75 nmol/L) Sufficiency 30 - 100 ng/mL (75 - 250 nmol/L) Toxicity >100 ng/mL (>250 nmol/L) Platelets bldon 03-20-2022 Platelets (Bld) [#/Vol] 392 10*3/uL 150-450 [facility] Work Phone: Serum or plasma albumin mili urement (mass/volume)on 03-20-2022 Albumin [Mass/Vol] 3.7 g/dL 3.2-5.0 [facility] Work Phone: Serum or plasma albumin/glob ulin mass ratioon 03-20-2022 Albumin/Globulin [Mass ratio] 0.9 {ratio} 0.9-2.4 [facility] Work Phone: Serum or plasma calcium mili urement (mass/volume)on 03-20-2022 Calcium [Mass/Vol] 9.4 mg/dL 8.5-10.1 [facility] Work Phone: Serum or plasma creatinine m easurement (mass/volume)on 03-20-2022 Creatinine [Mass/Vol] 1.03 mg/dL 0.55-1.02 [facility] Work Phone: Comment on above: The validity of the calculated GFR & GFRAA in patients over 70 years has not been determined. Clinical correlation is essential. Serum or plasma urea nitroge n measurement (mass/volume)on 03-20-2022 Urea nitrogen [Mass/Vol] 18 mg/dL 7-18 [facility] Work Phone: Serum or plasma uric acid me asurement (mass/volume)on 03-20-2022 Urate [Mass/Vol] 7.6 mg/dL 2.6-6.0 [facility] Work Phone: Comment on above: The drugs N-Acetylcy steine and Metamizole may falsely depress this assay. Thin prep Papanicolaou smear with manual screeningon 03-20-2022 Thin prep Papanicolaou smear with manual screening 18 U/L 15-37 [facility] Work Phone: Thin prep Papanicolaou smear with manual screening 9 5-15 [facility] Work Phone: CT LOWER EXTREMITY RIGHT WO CONTRASTon 11-22-2020 Patient Name: OMAIRA BILLINGSLEY Computed Tomography ACCESSION EXAM DATE/TIME PROCEDURE ORDERING PROVIDER [id number] 11/22/2020 11:[address] Low Ext w/o Contrast MD ROMAINE, SANA Right CPT code 96966 Reason For Exam (CT Low Ext w/o [...] great toe. Report Dictated on Workstation: [id number] --- Final --- Dictating Physician: MD ORTIZ ANTHONY J Signed Date and Time: 11/22/2020 11:53 am Signed by: MD ORTIZ ANTHONY J Transcribed Date and Time: 11/22/2020 11:54 [facility] Work Phone: [facility] Incoming Radiology Results From [facility] - 11/22/2020 11:54 AM EDT Patient Name: OMAIRA BILLINGSLEY Computed Tomography ACCESSION EXAM DATE/TIME PROCEDURE ORDERING PROVIDER [id number] 11/22/2020 11:[address] Low Ext w/o Contrast MD ROMAINE, SANA Right CPT code 15251 Reason For Exam (CT Low Ext w/o [...] great toe. Report Dictated on Workstation: [id number] --- Final --- Dictating Physician: MD ORTIZ ANTHONY J Signed Date and Time: 11/22/2020 11:53 am Signed by: MD ORTIZ ANTHONY J Transcribed Date and Time: 11/22/2020 11:54 [facility] Work Phone: CT Low Ext w/o Contrast [facility] 11-22-2020 CT Low Ext w/o Contrast Right Patient Name: OMAIRA BILLINGSLEY Computed Tomography ACCESSION EXAM DATE/TIME PROCEDURE ORDERING PROVIDER [id number] 11/22/2020 11:[address] Low Ext w/o Contrast MD ROMAINE, SANA Right CPT code 21254 Reason For Exam (CT Low Ext w/o [...] the great toe. Report Dictated on Workstation: [employer] Final Dictating Physician: MD ORTIZ ANTHONY J Signed Date and Time: 11/22/2020 11:53 am Signed by: MD ORTIZ ANTHONY J Transcribed Date and Time: 11/22/2020 11:54 Normal [facility] O Anna Marie hernandez [facility] Work Phone: Clinical Summary: [facility] 07-26-2020 O Anna Marie hernandez [facility] Work Phone: Office Visit: Test Result, R m: 07-26-2020 NEGATED: Highlighted rowMRI (magnetic resonance imaging) history of the right ankle on 07/20/2020 at [facility] Work Phone: NEGATED: Highlighted rowxray history of the right foot on 07/12/2020 at [facility], of the right ankle on 07/07/2020 at [facility] Work Phone: Clinical Summary: [facility]12[facility]2020 [facility] Anna Marie hernandez [facility] Work Phone: Office Visit: New - 1st visi t with practice, Rm: 907-12-2020 NEGATED: Highlighted rowTobacco smoking status NHIS Tobacco smoking status [facility] Work Phone: NEGATED: Highlighted rowxray history of the right ankle on 07/07/2020 at [facility] Work Phone: Clinical Summary: Scanned Hi story Summaryon 07-11-2020 cause of , [facility] Work Phone: comments about allergies aspirin, latex, statins [facility] Work Phone: data entered by patient, Employer Name retired [facility] Work Phone: Data entered by patient, history of past surgeries Cataract surgery [facility] Work Phone: Data entered by patient, medication list lisinopril and hydrochlorothiazide- 10-12.5mg-2-1 tablet twice a dayvitamin d3-1,000 unit-1-1 tablet every dayvitamin c-1,176mn-0-4-as neededmulti vitamin-Unknown Fngifawz-3-fjwx a day [facility] Work Phone: data entered by patient, mother's medical history High blood pressure [facility] [place] Work Phone: data entered by patient, past medical history High blood pressure [facility] Work Phone: data entered by patient, social history, marital status [facility] Work Phone: Housing Type: apartment, house, mcfp, trailer, none house [facility] Work Phone: housing unit size (asthma environmental history, housing) (from single family to don't know) 2 floors [facility] Work Phone: mother of patient is alive or [facility] Work Phone: mother's medical history, comments Aortic calve needed to be replaced [facility] Work Phone: Number of dependent children No [facility] Work Phone: Web entered surgical history comments Tendonitis surgery on right elbow, 40 years ago. [facility] Work Phone: CR Ankle 3+ Views Righton CR Ankle 3+ Views Right Patient Name: OMAIRA BILLINGSLEY Diagnostic Radiology Exam Date/Time 07/07/2020 09:55:00 EDT Exam CR Ankle 3+ Views Right Ordering Physician [id number] COSME Accession Number [id number] CPT4 Codes 91297 () Reason For Exam right ankle pain [...] Transcribed Date and Time: 07/07/2020 10:05 Normal [facility] ED Provider Noteon 0 ED Provider [...] pertinent surgical history. CURRENT MEDICATIONS Previous Medications BENAZEPRIL-HYDROCHLO RTHIAZIDE (LOTENSIN HCT) 20-12.5 MG PER TABLET Take [...] on phone: None Gets together: None Attends tenriism service: None Active member of club or [...] (36.4 ?C) (Temporal) Resp 16 Ht 5' 4 (1.626 m) Wt 108.9 kg (240 lb) [...] Weight: 108.9 kg (240 lb) Height: 5' 4 (1.626 m) Labs and Images interpreted in ED course. All labs and imaging have been personally reviewed by me. ED Course as of Jul 07 1625 Wed Jul 07, 2020 1109 XR right ankle shows [...] Patient condition is good PATIENT REFERRED TO: [facility] [address] [facility] [address] (Please note: Portions of this note were completed with a voice recognition program. Efforts were made to edit the dictations but occasionally words and phrases are mis-transcribed.) Form [id number] Jose Mcgarry DO (electronically signed) Emergency Medicine Provider Jose Mcgarry DO 07/07/20 1647 Normal [facility] XR ANKLE RIGHT (MIN 3 VIEWS) on 07-07-2020 Patient Name: OMAIRA BILLINGSLEY ---Diagnostic Radiology--- Exam Date/Time 07/07/2020 09:55:00 EDT Exam CR Ankle 3+ Views Right Ordering Physician JOSE YANEZ Accession Number [id number] CPT4 Codes 97878 () Reason For Exam right ankle pain [...] JASON Transcribed Date and Time: 07/07/2020 10:05 [place], [place] [facility] Incoming Radiology Results From [facility] - 07/07/2020 10:05 AM EDT Patient Name: OMAIRA BILLINGSLEY ---Diagnostic Radiology--- Exam Date/Time 07/07/2020 09:55:00 EDT Exam CR Ankle 3+ Views Right Ordering Physician JOSE YANEZ Accession Number [id number] CPT4 Codes 21460 () Reason For Exam right ankle pain [...] JASON Transcribed Date and Time: 07/07/2020 10:05 [place], [place] [facility] 2018 Ophthalmic Eye Exam DOCUMENT SIGNED ELECTRONICALLY BY Art Morrow ON 06/02/2019 09:54:47 [address] [address] [address] [place] [address] [phone] THIS DOCUMENT WAS CREATED ON: 06/02/2019 09:54:40 AM BY: Art Jensen performed [id number] Exam Date: Sunday, June 02, 2019 PATIENT [...] MEDICAL HISTORY: OCULAR: BRVO cme, PVD hr, Cataract,Pseudophaki a Right eye PROCEDURES : 08/12/2013 Vitrectomy mp,25g OD, 12/14/2012 Injection-Avastin OD, 02/11/2013 Focal Laser OD, AVASTIN INJECTION OD 07/31/2014, AVASTIN INJECTION OD 09/11/2014, AVASTIN INJECTION OD 10/28/2014 , AVASTIN INJECTION OD 12/03/2014, AVASTIN INJECTION OD 01/15/2015, AVASTIN INJECTION OD 02/24/2015, AVASTIN INJECTION OD 03/26/2015, AVASTIN INJECTION OD 05/14/2015, Focal Retinal Laser OD 04/07/2016, 6 Cataract Extraction w/ IOL OD INFECTIOUS: Usual [...] Solution, INSTILL 1 DROP Once OU[Reported] , Lisinopril-hydroCHLO ROthi Tablet, [Reported] Multivitamins TABS (No lo Tablet, [Reported] Vitamin D TABS Tablet, TAKE 1 TABLET Weekly by mouth[Report ALLERGIES: Aspirin TABS, Latex Exam Gloves MISC, Statins REVIEW OF SYSTEMS: All other Review Of Systems negative Exam ORIENTATION, MOOD AND AFFECT: Alert AND oriented x3 RIGHT EYE LEFT EYE UNCORRECTED VA 20/20-2 20/20-2 PRESSURES: 18 20 DATE-TIME: 09:17 AM 09:17 AM COMPRESS ENGINEER: [email or web address] EXTERNAL EYE EXAM: LID: Good Position Good [...] CUP TO DISC: .2 .2 OPTIC DISC: Hulbert and sharp Hulbert and sharp VITREOUS: PVD PVD MACULA: superior [...] 02 2019 9:54AM Eastern Standard Time Normal [facility] 2018 Ophthalmic Eye Exam DOCUMENT SIGNED ELECTRONICALLY BY Anne Camargo MD ON 11/27/2018 14:55:59 [address] [address] [address] [place] [address] THIS DOCUMENT WAS CREATED ON: 11/27/2018 02:55:50 PM BY: MD Liv Kingsley COT performed Refraction GRUPO [place] performed [id number] Exam Date: Tuesday, November 27, 2018 PATIENT [...] Solution, INSTILL 1 DROP Once OU[Reported] , Lisinopril-hydroCHLO ROthi Tablet, [Reported] Multivitamins TABS (No lo Tablet, [...] PRESSURES: 18 18 DATE-TIME: 01:56 PM 01:56 SUBSTATION OPERATOR APPRENTICE: Isabel Hall EXTERNAL EYE EXAM: LID: Good [...] CUP TO DISC: .2 .2 OPTIC DISC: Hulbert and sharp Hulbert and sharp VITREOUS: PVD PVD MACULA: superior [...] MD Plan PSEUDOPHAKIA OF RIGHT EYE.1 - 16 PCO (posterior capsular opacification), right.491 -Doing well. [...] 27 2018 2:56PM Eastern Standard Time [facility] Vital Signs Date Time Vital Sign Value Performing Clinician Facility 07-07-2020 12:09-0400 BP Diastolic 65 mm[Hg] Getting[facility] , [employer] 07-07-2020 12:09-0400 BP Systolic 127 mm[Hg] Jose [employer] [facility] , [employer] 07-07-2020 12:09-0400 Pulse (Heart Rate) 72 /min [facility] [place] [place] 07-07-2020 12:09-0400 Pulse Oximetry 98 % [facility] [place] [facility] [place] 07-07-2020 12:09-0400 Respiratory Rate 16 /min [facility] [place] [facility] [place] 07-07-2020 09:37-0400 Body Temperature 97.5 [degF] [facility] [place] 07-07-2020 09:36-0400 BMI (Body Mass Index) 41.2 kg/m2 [facility] [place] [place] 07-07-2020 09:36-0400 Body weight 108.86 kg [facility] [place] [facility] [place] 07-07-2020 09:36-0400 Height 162.6 cm [facility] NEGATED: Highlighted [id number] 10:52-0500 BMI (Body Mass Index) 39.79 kg/m2 Jessica Lorence AT [facility] Work Phone: NEGATED: Highlighted [id number] 10:52-0500 Body weight 104.78 kg Jessica Lorence AT [facility] [place] [facility] Work Phone: NEGATED: Highlighted [id number] 10:52-0500 Body weight 105 kg Jessica Lorence AT [facility] Work Phone: NEGATED: Highlighted [id number] 10:52-0500 Heart rate 2+ Jessica Lorence AT [facility] Work Phone: NEGATED: Highlighted [id number] 10:52-0500 Height 162.56 cm Jessica Lorence AT [facility] Work Phone: NEGATED: Highlighted [id number] 10:52-0500 Height 163 cm Jessica Lorence AT [facility] Work Phone: NEGATED: Highlighted [id number] 13:41-0500 BMI (Body Mass Index) 39.79 kg/m2 [facility] AT [facility] Work Phone: NEGATED: Highlighted [id number] 13:41-0500 Body weight 104.78 kg Marjan Gresham AT [facility] Work Phone: NEGATED: Highlighted [id number] 13:41-0500 Body weight 105 kg Marjan Gresham AT [facility] Work Phone: NEGATED: Highlighted [id number] 13:41-0500 BP Diastolic 0 mm[Hg] Marjanran LanceMarga AT [facility] Work Phone: NEGATED: Highlighted [id number] 13:41-0500 BP Systolic 0 mm[Hg] Marjanran Gresham AT [facility] Work Phone: NEGATED: Highlighted [id number] 13:41-0500 Heart rate 2+ Marjanran Gresham AT [facility] Work Phone: NEGATED: Highlighted [id number] 13:41-0500 Height 162.56 cm Marjanran LanceMarga AT [facility] Work Phone: NEGATED: Highlighted [id number] 13:41-0500 Height 163 cm Marjan Gresham AT [facility] Work Phone: NEGATED: Highlighted [id number] 13:41-0500 Pulse (Heart Rate) 0 /min Marjan Gresham AT [facility] Work Phone: NEGATED: Highlighted [id number] 15:04-0500 BMI (Body Mass Index) 40.31 kg/m2 Marjan Gresham AT [facility] Work Phone: NEGATED: Highlighted [id number] 15:04-0500 Body weight 106.14 kg Marjan Gresham AT [facility] Work Phone: NEGATED: Highlighted [id number] 15:04-0500 Body weight 106 kg [facility] Work Phone: NEGATED: Highlighted [id number] 15:04-0500 BP Diastolic 0 mm[Hg] [facility] Work Phone: NEGATED: Highlighted [id number] 15:04-0500 BP Systolic 0 mm[Hg] [facility] Work Phone: NEGATED: Highlighted [id number] 15:04-0500 Heart rate 2+ [facility] Work Phone: NEGATED: Highlighted [id number] 15:04-0500 Height 162.56 cm [facility] Work Phone: NEGATED: Highlighted [id number] 15:04-0500 Height 163 cm [facility] Work Phone: NEGATED: Highlighted [id number] 15:04-0500 Pulse (Heart Rate) 0 /min [facility] Work Phone: Encounters Encounter Date Encounter Type Care Provider Facility Start: 04-10-2025 ambulatory Kyle Garcia Facility:[facility] Start: 04-01-2025 End: 04-01-[address] Kyle Garcia MD Work Phone: -Laboratory Phy Office 3rd Flr Start: 04-01-2025 End: 04-01-[address] Kyle Garcia MD -Laboratory Phy Office 3rd Flr Start: 04-01-2025 End: 04-01-2025 ambulatory Kyle Garcia Facility:[facility] Start: 04-10-2023 End: 04-10-2023 ambulatory [facility] Work Phone: Start: 04-10-2023 End: 04-10-2023 Patient encounter procedure [facility]Labor[facility] Work Phone: Start: 03-27-2023 End: 03-27-2023 Patient encounter procedure [facility]-Laboratory, Phy Office 3rd Flr Start: 01-23-2023 End: 01-23-2023 ambulatory Facility:[facility] Start: 05-05-2022 End: 05-05-2022 ambulatory [facility] Work Phone: Start: 05-05-2022 End: 05-05-2022 Patient encounter procedure [facility]-Outpatient Breast Imaging Start: 04-25-2022 End: 04-25-2022 ambulatory [facility] Work Phone: Start: 04-25-2022 End: 04-25-2022 Patient encounter procedure [facility] Start: 03-20-2022 End: 03-20-2022 [facility] Start: 11-22-2020 End: 11-22-2020 Subsequent hospital visit by physician Sana Soto Work Phone: [facility] CT Scan Comment on above: Arrived Start: 08-27-2020 End: 08-28-2020 Patient encounter procedure Evan Carl ERIC Work Phone: [facility] Work Phone: Start: 07-26-2020 End: 07-26-2020 Patient encounter procedure Sana Soto MD Work Phone: [facility] Work Phone: Start: 07-07-2020 End: 07-07-2020 Emergency department patient visit Jose Mcgarry Work Phone: [facility] Adalgisa MARTINES Comment on above: Plantar fascial fibr omatosis (Primary Dx); Acute right ankle pain Start: 11-27-2018 Patient encounter procedure SWAPNA WILD Facility:[id number] Procedures Date Procedure Procedure Detail Performing Clinician Start: 04-01-2025 Vitamin D, 25-hydrox y measurement Dr. Kyle Garcia MD Work Phone: Comment on above: Vitamin D StatusDefi ciency: <20 ng/mL (50nmol/L)Insufficiency: 20-30 ng/mL (50-75 nmol/L)Sufficiency: 30-100 ng/mL (75-250 nmol/L)Toxicity: >100 ng/mL (>250 nmol/L) Start: 05-05-2022 Mammography Start: 05-05-2022 Ultrasonography of breast Start: 04-25-2022 Screening mammography Start: 11-22-2020 Ct lower extremity w /o contrast material Sana Soto Work Phone: Start: 08-27-2020 End: 08-27-2020 [facility]) Evan REYES Work Phone: Start: 08-27-2020 End: 08-28-2020 Blood pressure screening not performed - reason not given Evan REYES Work Phone: Start: 08-27-2020 End: 08-28-2020 BMI documented as above normal parameters - follow-up documented Evan REYES Work Phone: Start: 08-27-2020 End: 08-28-2020 Documentation of current medications Evan REYES Work Phone: Start: 08-27-2020 End: 08-28-2020 Pain assessment not documented - reason not given Evan REYES Work Phone: Start: 08-27-2020 End: 08-28-2020 Tobacco non-user Evan REYES Work Phone: Start: 07-26-2020 End: 07-26-2020 Blood pressure within normal parameters - no follow-up required Sana Soto MD Work Phone: Start: 07-26-2020 End: 07-26-2020 BMI documented as above normal parameters - follow-up documented Sana Soto MD Work Phone: Start: 07-26-2020 End: 07-26-2020 Documentation of current medications Sana Soto MD Work Phone: Start: 07-26-2020 End: 07-26-2020 Pain assessment documented as positive - follow-up documented Sana Soto MD Work Phone: Start: 07-26-2020 End: 07-26-2020 Tobacco non-user Sana Soto MD Work Phone: Start: 07-07-2020 Radex ankle complete minimum 3 views Jose Malgorzata Work Phone: NEGATED: Highlighted rowStart: 08-27-2020 End: 08-27-2020 Documentation of current medications Jessica Lorence AT NEGATED: Highlighted rowStart: 07-26-2020 End: 07-26-2020 Documentation of current medications Marjan Marga AT NEGATED: Highlighted rowStart: 07-12-2020 End: 07-12-2020 Documentation of current medications Marjan Marga AT Plan of Treatment Date Care Activity Detail Author Start: 09-27-2020 End: 09-27-2020 Appointment Appointment [facility] Work Phone: Start: 09-17-2020 End: 09-17-2020 Appointment Appointment [facility] Work Phone: Start: 08-27-2020 End: 08-27-2020 Appointment Appointment [facility] Work Phone: Start: 08-19-2020 End: 08-19-2020 Appointment Appointment [facility] Work Phone: Start: 08-13-2020 End: 08-13-2020 Appointment Appointment [facility] Work Phone: Start: 07-26-2020 End: 07-26-2020 Appointment Appointment [facility] [facility] Work Phone: Start: 07-12-2020 End: 07-12-2020 Appointment Appointment [facility] Work Phone: Start: 07-12-2020 End: 07-12-2020 Mri any jt lower extrem w/o contrast matrl MRI right ankle without contrast [facility] Work Phone: Start: 07-12-2020 End: 07-12-2020 Radex foot complete minimum 3 views XR FOOT 3+ VWS-RT [facility] Work Phone: Start: 05-11-2020 Influenza vaccination Flu vaccine (#1) [place], [place] Start: 2016 Pneumococcal 65+ years Vaccine [...] Phone: Start: 1950 Creatinine measurement Creatinine monitoring [place], [place] Start: 1950 Hepatitis C screening Hepatitis C screen [facility] Work Phone: Start: 1950 Potassium monitoring Potassium monitoring [place], [place] Payers Date Payer Category Payer Self-pay [id number] 2016 Medicare [id number] 2016 Unknown [id number] 1950 Unknown [id number] Unknown [id number] Unknown [id number] Unknown [id number] Social History Date Type Detail Facility Start: 07-07-2020 Tobacco smoking status NHIS Never smoker [place] Start: 07-07-2020 Tobacco use and exposure Never used [place] Start: 07-07-2020 Alcohol intake Lifetime non-drinker (finding) [place] Start: 07-07-2020 History SDOH Alcohol Frequency 1 [place] Sex Assigned At Not on file [place] Exposure to SARS-CoV-2 (event) Not sure [place] Start: 07-26-2020 End: 08-28-2020 Assertion Unknown if ever smoked [facility] Work Phone: Start: 1950 Sex Assigned At Female [facility] NEGATED: Highlighted rowStart: 07-12-2020 End: 07-12-2020 Alcohol use Alcohol use [facility] Work Phone: NEGATED: Highlighted rowStart: 07-12-2020 End: 07-12-2020 Details of drug misuse behavior Details of drug misuse behavior [facility] Work Phone: NEGATED: Highlighted rowStart: 07-12-2020 End: 07-12-2020 Assertion Never smoker [facility] Work Phone: Progress note 01-23-2023 Note Date & Type Note Facility 01-23-2023 Note HNO ID: [id number] Author: Nick Bueno APRN.GALLERY MANAGER Service: ? Author Type: Nurse Practitioner Type: Progress Notes Filed: 01/23/2023 2:41 PM Note Text: This note was created using NoteWriter. Subjective [...] that. Not concerned for covid because besides anabaptist she has not been anymore. She notes [...] Unknown Shellfish Containin* Unknown Soy Protein Unknown Rutjcet-Pmq-Shb Red* Other: See Comments No family history [...] Medical Decision Making Level: 4 - Moderate [facility] Evaluation note Note Date & Type Note Facility Evaluation note No assessment information availa ble [facility] Work Phone: Reason for referral (narrative) Note Date & Type Note Facility Reason for referral (narrative) No reason for referral information available [facility] Work Phone: Summary Purpose Family History No [...] sent through Care Everywhere. * Plantar Fasciitis (Indonesian) documented in this encounter Assessments Diagnosis Plantar [...] section and content) DATE CREATED AUTHOR 11/27/2018 [facility] DATE CREATED AUTHOR AUTHOR'S ORGANIZ ATION 06/02/2019 [employer] DATE CREATED AUTHOR AUTHOR'S ORGANIZ ATION 11/25/2020 [employer] [facility] DATE CREATED AUTHOR AUTHOR'S ORGANIZ ATION 01/24/2023 [facility] DATE CREATED AUTHOR AUTHOR'S ORGANIZ ATION 04/10/2025 [facility] Reason for Visit (unrecogniz ed section [...] MD Primary Care Provider, Attending Provider Active Team Status: Active Member Role/Relationship Status Dates Dr. Kyle Garcia MD Primary Care Provider Active Team Status: Inactive Member Role/Relationship Status Dates Dr. Kyle Garcia MD Primary Care Provider Active Start: April 01, 2025 End: April 01, 2025 Dr. Kyle Garcia MD Attending Provider Active Start: April 01, 2025 End: April 01, 2025 FOR RECORDS PERTAINING TO PATIENTS WHO ARE [...] BE BASED ON THE PRIMARY CLINICAL RECORDS. [employer] [facility] provides no warranty or guarantee of the accuracy or completeness of information in this document.
[2025-04-11 05:07] LABS: HEPATITIS B SURFACE AG Negative (Negative); Hep C Antibodies Non Reactive (Non Reactive)
== END 2025-04-10 23:59 | disposition home or self-care (01) ==
PROVIDERS: PCP Family Medicine Geriatric Medicine; Referring Provider Family Medicine Geriatric Medicine; Visit Provider Family Medicine Geriatric Medicine
DX: R74.8 Abnormal levels of other serum enzymes (principal); B18.0 Chronic viral hepatitis B with delta-agent
CPT/HCPCS: 36415; 76705; 80074

== ENCOUNTER → 2025-04-18 | Outpatient (CLI) | payer MEDICARE, OTHER, SELFPAY ==
--- OUTSIDE RECORDS SUMMARY | 2025-04-18 10:11 | XMS RPT_ITS | CCD ---
Author Organization [facility] ion Partnership [facility] Care Team Providers Care Abap Developer Name Role Phone DIEGOKIM GuoNAGA Bright Attending Unavailable Jose, Kyle-chi Referring Unavailable Jose, Kyle-chi Primary Care Unavailable Unavailable Primary Care Provider Harley Soto MD, Sana Jones Unavailable Evan Devi Unavailable Jose RIDER, Dr. Kyle Dodge Primary Care Provider [phone] Dr. Kyle Garcia MD, Chi Attending Provider Jose, Kyle Chi Primary Care Unavailable Jose, Kyle Chi Attending Unavailable Jose, Kyle Chi Primary Care Unavailable Jose, Kyle Chi Attending Unavailable Jose, Kyle Chi Referring Unavailable Jose, Kyle Chi Primary Care Unavailable Jose, Kyle Chi Attending Unavailable Jose, Kyle Chi Referring Unavailable Jose, Kyle Chi Primary Care Unavailable Jose, Kyle Chi Attending Unavailable Jose, Kyle Chi Referring Unavailable Jose, Kyle Chi Primary Care Unavailable Jose, Kyle Chi Attending Unavailable Jose, Kyle Chi Attending Unavailable Jose, Kyle Chi Referring Unavailable Jose, Kyle Chi Primary Care Unavailable Jose, Kyle Chi Primary Care Unavailable Jose, Kyle Chi Attending Unavailable Allergies Allergy Classification Reported Allergen(s) Allergy Type Date of Onset Reaction(s) Facility (3 sources) Aluminum aspirin; Translations: [ASPIRIN] Drug Allergy 9 [place] (5 sources) Hmg-Coa Reductase Inhibitors (Statins) Propensity to adverse reactions to drug 0 [place] (5 sources) Latex; Translations: [LATEX] Propensity to adverse reactions to drug 0 [place] (5 sources) Aspirin Drug Allergy 0 [facility] Work Phone: (2 sources) House dust mite; Translations: [DUST MITES] allergy to substance 0 [facility] Work Phone: (2 sources) Iodine Drug Allergy 0 [facility] Work Phone: (2 sources) Mold Extract; Translations: [MOLD] Drug Allergy 0 [facility] Work Phone: (2 sources) peanut; Translations: [PEANUTS] food allergy 0 [facility] Work Phone: (2 sources) Shellfish; Translations: [SHELLFISH] food allergy 0 [facility] Work Phone: (2 sources) Soy protein; Translations: [SOY] food allergy 0 [facility] Work Phone: (2 sources) STINGING INSECTS; Translations: [STINGING INSECTS] allergy to substance 0 [facility] Work Phone: Medications Current Medications Medication [...] 6 hours as needed for pain HYDROCODONE-ACETAMI ZOE [id number] Evan REYES ascorbic acid 1000 mg oral tablet (3 sources) Vitamin C Start: 07-12-2020 VITAMIN C 1000 MG TABS 1 tablet as needed as directed ASCORBIC ACID [id number] Renuka Solitario BILBERRY (VACCINIUM MYRTILLUS) CAPS (2 sources) Start: 07-12-2020 BILBERRY CAPS as directed as needed BILBERRY (VACCINIUM MYRTILLUS) CAPS [id number] Yamile Solares LPN cholecalciferol 1000 unt oral tablet (3 sources) Vitamin D Start: 07-12-2020 VITAMIN D3 25 MCG (1000 UT) TABS 1 tablet once daily CHOLECALCIFEROL [id number] Renuka Solitario hydroCHLOROthiazide 12.5 mg / lisinopril 10 mg oral tablet (3 sources) Thiazide Diuretic, Angiotensin Converting Enzyme Inhibitor Start: 07-12-2020 LISINOPRIL-HYDROCHL OROTHIAZIDE 10-12.5 MG TABS 1 tablet twice daily LISINOPRIL-HYDROCHL OROTHIAZIDE [id number] Renuka Solitario Lysine (2 sources) Start: 07-12-2020 L-LYSINE TABS as directed as needed LYSINE TABS [id number] Yamile Solares LPN MULTIPLE VITAMINS-MINERALS (1 source) Start: 07-12-2020 ONE DAILY MULTIVITAMIN ADULT TABS 1 tablet once daily MULTIPLE VITAMINS-MINERALS [id number] Renuka Solitario MULTIPLE VITAMINS-MINERALS (2 sources) Start: 07-12-2020 MULTIVITAMIN ADULT TABS as directed MULTIPLE VITAMINS-MINERALS [id number] Yamile Solares LPN ondansetron 4 mg oral tablet (1 source) Serotonin-3 Receptor Antagonist Start: 08-19-2020 ONDANSETRON HCL 4 MG TABS Take 1 tab by mouth every 6-8 hours as needed for nausea ONDANSETRON HCL [id number] Sana Soto MD Problems Active Problems Problem Classification Problem Date Documented Date Episodic/Chronic Acquired foot deformities (3 sources) Acquired [...] 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), right foot] Onset: 07-12-2020 07-12-2020 Biliary tract disease (1 source) Calculus of gallbladder without cholecystitis without obstruction; Translations: [Calculus of gallbladder without cholecystitis without obstruction] Onset: 04-17-2025 Episodic Essential hypertension (1 source) Essential (primary) hypertension; Translations: [Essential (primary) hypertension] Onset: 04-07-2025 Chronic Fluid and electrolyte disorders (1 source) Hypo-osmolality and hyponatremia; Translations: [Hypo-osmolality and hyponatremia] Onset: 04-15-2025 Episodic Other acquired deformities (3 sources) Equinus contracture of the ankle; Translations: [Contracture, right ankle] Onset: 07-12-2020 07-12-2020 Chronic Other connective tissue disease (1 source) Plantar fascial fibromatosis; 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 Other diseases of kidney and ureters (1 source) Other specified disorders of kidney and ureter; Translations: [Other specified disorders of kidney and ureter] Onset: 04-17-2025 Chronic Other liver diseases (1 source) Fatty (change of) liver, not elsewhere classified; Translations: [Fatty (change of) liver, not elsewhere classified] Onset: 04-17-2025 Chronic Other liver diseases (1 source) Abnormal levels of other serum enzymes; Translations: [Abnormal levels of other serum enzymes] Onset: 04-10-2025 Episodic Other non-traumatic joint disorders (2 sources) [...] Test Name Value Interpretation Reference Range Facility Hepatitis Panel Acuteon 08-0 COMMENT Comment Normal . [facility] Comment on above: Result Comment: Not infected with HCV unless early or acute infection is suspected (which may be delayed in an immunocompromised individual), or other evidence exists to indicate HCV infection. Performed at: - [facility] [id number] Cytology Teacher: Dylon Arias PhD, Phone: [phone] Performed By: #### L 3000.0375 #### [facility] [address] [place], [place], [id number] HEP B CORE,IgM Negative Normal Negative [facility] Comment on above: Performed By: #### L 3000.0375 #### [facility] [address] [place], [place], [id number] HEP B SURF AG Negative Normal Negative [facility] Comment on above: Performed By: #### L 3000.0375 #### [facility] [address] [place], [place], [id number] HEP C VIRUS AB Non-Reactive Normal Non Reactive [facility] Comment on above: Performed By: #### L 3000.0375 #### [facility] [address] [place], [place], [id number] HEPATITIS A-IgM Negative Normal Negative [facility] Comment on above: Result Comment: A ne gative anti-HAV IgM result suggests no recent or current HAV infection. Performed By: #### L 3000.0375 #### [facility] [address] [place], [address] Abdomen Limitedon 04-10-2025 Abdomen Limited [facility] [address] [place] [id number] Abdomen Limited MR#: [id number] Acct: [id number] Name: OMAIRA BILLINGSLEY Rep #: [id number] : [id number] F [id number] From: Luther eckert MD PCP: Dr. Kyle Garcia MD Status: REG CLI Study: Abdomen Limited Date of Exam: 04/10/25 Exam# [id number] Ordering Dr: Kyle Garcia MD PROCEDURE: ABDOMEN LIMITED 04/10/2025 REASON FOR EXAM: ELEVATED LIVER ENZYMES COMPARISON: None FINDINGS: Liver: Diffusely echogenic suggesting fatty infiltration. The liver measures 17.9 cm. Gallbladder: Sludge and gallstones within the gallbladder lumen. The gallbladder wall measures 2.1 mm. Common bile duct: Normal measuring 3 mm . Pancreas: Other: The right kidney measures 13.6 cm 6 cm 4.6 cm. There is a 4.6 cm x 4.2 cm 3.9 cm cyst in the lower pole. There is also evidence of a 1.6 cm x 1.5 cm x 1.4 cm hypoechoic solid nodule in the inferior pole. This needs to be characterize further. Correlation with CT scan recommended. US/Abdomen Limited IMPRESSION: Multiple gallstones. Fatty infiltration of the liver. Right renal cysts. 1.6 cm 1.5 cm 1.4 cm hypoechoic solid nodule in the lower pole of the right kidney. Correlation with CT scan recommended. Reading Location: [id number] CC: Dr. Kyle Garcia MD Oil Heater Operator: Signed Normal [facility] Absolute lymphocyte countOrd ered By: Kyle Garcia on 04-01-2025 Lymphocytes Auto (Unsp spec) [#/Vol] 2.18 10*3/uL 0.83-4.[address] [facility] Absolute neutrophil countOrd ered By: Kyle Garcia on 04-01-2025 Neutrophils (Bld) [#/Vol] 3.6 10*3/uL 2.0-7.[address] [facility] Anion gap in Serum or Plasma Ordered By: Kyle Garcia on 04-01-2025 Anion gap [Moles/Vol] 12 mmol/L 5-15 [facility] Automated lymphocyte count a s percentage of total leukocytesOrdered By: Kyle Garcia on 04-01-2025 Lymphocytes/100 WBC Auto (Unsp spec) 34.0 % - [facility] BUN/creatinine ratioOrdered By: Kyle Garcia on 04-01-2025 Urea nitrogen/Creatinine [Mass ratio] 17.1 mg/mg 10- [facility] Basophil percentageOrdered B y: Kyle Garcia on 04-01-2025 Basophils/100 WBC (Bld) 0.5 % 0-1 [facility] Bilirubin, totalOrdered By: Kyle Garcia on 04-01-2025 Bilirubin [Mass/Vol] 0.98 mg/dL 0.00-1.30 [facility] CBC W/Diff, Automatedon 03-11 Absolute Lymph 2.18 X10 3/uL Normal 0.83-4.[address] [facility] Comment on above: Performed By: #### L 506.1001, L500.4050, L100.0100, L501.9520 #### [facility] [address] [place], [address] Absolute Neut 3.6 X10 3/uL Normal 2.0-7.[address] [facility] Comment on above: Performed By: #### L 506.1001, L500.4050, L100.0100, L501.9520 #### [facility] [address] [place], [address] Basophils/100 WBC (Bld) 0.5 % Normal 0-1 [facility] Comment on above: Performed By: #### L 506.1001, L500.4050, L100.0100, L501.9520 #### [facility] [address] [place], [address] Eosinophils/100 WBC (Bld) 1.9 % Normal 0-[address] [facility] Comment on above: Performed By: #### L 506.1001, L500.4050, L100.0100, L501.9520 #### [facility] [address] [place], [address] Erythrocyte distribution width (RBC) [Ratio] 13.5 % Normal 11.6-14.[address] [facility] Comment on above: Performed By: #### L 506.1001, L500.4050, L100.0100, L501.9520 #### [facility] [address] [place], [address] Hematocrit (Bld) [Volume fraction] 38.2 % Normal 37-[address] [facility] Comment on above: Performed By: #### L 506.1001, L500.4050, L100.0100, L501.9520 #### [facility] [address] [place], [address] Hemoglobin (Bld) [Mass/Vol] 13.1 g/dL Normal 12.0-15.[address] [facility] Comment on above: Performed By: #### L 506.1001, L500.4050, L100.0100, L501.9520 #### [facility] [address] [place], [address] IG% 0.200 Normal 0.0-0.[address] [facility] Comment on above: Result Comment: IG% - Immature Granulocytes (promyelocytes, myelocytes and metamyelocytes) > 1% indicates that a LEFT SHIFT is Present. Performed By: #### L 506.1001, L500.4050, L100.0100, L501.9520 #### [facility] [address] [place], [address] Lymphocytes/100 WBC (Bld) 34.0 % Normal 19-[address] [facility] Comment on above: Performed By: #### L 506.1001, L500.4050, L100.0100, L501.9520 #### [facility] [address] [place], [address] MCH (RBC) [Entitic mass] 30.3 pg Normal 27.0-32.[address] [facility] Comment on above: Performed By: #### L 506.1001, L500.4050, L100.0100, L501.9520 #### [facility] [address] [place], [address] MCHC (RBC) [Mass/Vol] 34.3 g/dL Normal 32-36 [facility] Comment on above: Performed By: #### L 506.1001, L500.4050, L100.0100, L501.9520 #### [facility] [address] [place], [address] MCV (RBC) [Entitic vol] 88.2 fL Normal 81-99 [facility] Comment on above: Performed By: #### L 506.1001, L500.4050, L100.0100, L501.9520 #### [facility] [address] [place], [address] Monocytes/100 WBC (Bld) 7.3 % Normal 0-10 [facility] Comment on above: Performed By: #### L 506.1001, L500.4050, L100.0100, L501.9520 #### [facility] [address] [place], [address] Neutrophils/100 WBC (Bld) 56.1 % Normal 47-[address] [facility] Comment on above: Performed By: #### L 506.1001, L500.4050, L100.0100, L501.9520 #### [facility] [address] [place], [address] Nucleated RBC (Bld) [#/Vol] 0 10*3/uL Normal 0-[address] [facility] Comment on above: Performed By: #### L 506.1001, L500.4050, L100.0100, L501.9520 #### [facility] [address] [place], [address] Platelet mean volume (Bld) [Entitic vol] 8.9 fL Normal 6.2-12.[address] [facility] Comment on above: Performed By: #### L 506.1001, L500.4050, L100.0100, L501.9520 #### [facility] [address] [place], [address] Platelets (Bld) [#/Vol] 344 10*3/uL Normal 150-[address] [facility] Comment on above: Performed By: #### L 506.1001, L500.4050, L100.0100, L501.9520 #### [facility] [address] [place], [address] RBC (Bld) [#/Vol] 4.33 10*6/uL Normal 4.2-5.4 [facility] Comment on above: Performed By: #### L 506.1001, L500.4050, L100.0100, L501.9520 #### [facility] [address] [place], [address] RDW SD 44.0 fl High 35.1-43.[address] [facility] Comment on above: Performed By: #### L 506.1001, L500.4050, L100.0100, L501.9520 #### [facility] [address] [place], [address] WBC (Bld) [#/Vol] 6.4 10*3/uL Normal 4.4-11.0 [facility] Comment on above: Performed By: #### L 506.1001, L500.4050, L100.0100, L501.9520 #### [facility] [address] [place], [address] Carbon dioxide, total [Moles /volume] in Central venous bloodOrdered By: Kyle Garcia on 04-01-2025 CO2 [Moles/Vol] 28.4 mmol/L 21.0-32.[address] [facility] Chloride assayOrdered By: David zamorano Jose on 04-01-2025 Chloride [Moles/Vol] 90 mmol/L Low 98-108 [facility] Comprehensive Metabolic Prof ilon 04-01-2025 Albumin [Mass/Vol] 4.1 g/dL Normal 3.4-4.8 [facility] Comment on above: Performed By: #### L 506.1001, L500.4050, L100.0100, L501.9520 #### [facility] [address] [place], [address] Albumin/Globulin [Mass ratio] 1.4 {ratio} Normal 0.9-2.[address] [facility] Comment on above: Performed By: #### L 506.1001, L500.4050, L100.0100, L501.9520 #### [facility] [address] [place], [address] ALK PHOS 76 U/L Normal 35-[address] [facility] Comment on above: Performed By: #### L 506.1001, L500.4050, L100.0100, L501.9520 #### [facility] [address] [place], [address] ALT [Catalytic activity/Vol] 44 U/L High <=[address] [facility] Comment on above: Performed By: #### L 506.1001, L500.4050, L100.0100, L501.9520 #### [facility] [address] [place], [address] AST [Catalytic activity/Vol] 37 U/L High <=[address] [facility] Comment on above: Result Comment: Hemo lysis present, Results??could be affected. ?? Performed By: #### L 506.1001, L500.4050, L100.0100, L501.9520 #### [facility] [address] [place], [address] Bilirubin [Mass/Vol] 0.98 mg/dL Normal 0.00-1.30 [facility] Comment on above: Performed By: #### L 506.1001, L500.4050, L100.0100, L501.9520 #### [facility] [address] [place], [address] BUN/CRE 17.1 RATIO Normal 10-[address] [facility] Comment on above: Performed By: #### L 506.1001, L500.4050, L100.0100, L501.9520 #### [facility] [address] [place], [address] Calcium [Mass/Vol] 9.0 mg/dL Normal 7.6-11.0 [facility] Comment on above: Performed By: #### L 506.1001, L500.4050, L100.0100, L501.9520 #### [facility] [address] [place], [address] Chloride [Moles/Vol] 90 mmol/L Low 98-108 [facility] Comment on above: Performed By: #### L 506.1001, L500.4050, L100.0100, L501.9520 #### [facility] [address] [place], [address] CO2 [Moles/Vol] 28.4 mmol/L Normal 21.0-32.[address] [facility] Comment on above: Performed By: #### L 506.1001, L500.4050, L100.0100, L501.9520 #### [facility] [address] [place], [address] Creatinine [Mass/Vol] 0.88 mg/dL Normal 0.70-1.20 [facility] Comment on above: Performed By: #### L 506.1001, L500.4050, L100.0100, L501.9520 #### [facility] [address] [place], [address] GAP 12 Normal 5-[address] [facility] Comment on above: Performed By: #### L 506.1001, L500.4050, L100.0100, L501.9520 #### [facility] [address] [place], [address] GFR/1.73 sq M.predicted among non-blacks MDRD (S/P/Bld) [Vol rate/Area] 69 mL/min/{1.73_m2} Normal >[address] [facility] Comment on above: Result Comment: mL/m in/1.73m2 CKD-EPI Creatinine Equation (2020) Performed By: #### L 506.1001, L500.4050, L100.0100, L501.9520 #### [facility] [address] [place], [address] Globulin (S) [Mass/Vol] 2.9 g/dL Normal 2.2-4.2 [facility] Comment on above: Performed By: #### L 506.1001, L500.4050, L100.0100, L501.9520 #### [facility] [address] [place], [address] Glucose [Mass/Vol] 96 mg/dL Normal 70-99 [facility] Comment on above: Performed By: #### L 506.1001, L500.4050, L100.0100, L501.9520 #### [facility] [address] [place], [address] Potassium [Moles/Vol] 3.9 mmol/L Normal 3.3-5.1 [facility] Comment on above: Result Comment: Hemo lysis present, Results??could be affected. ?? Performed By: #### L 506.1001, L500.4050, L100.0100, L501.9520 #### [facility] [address] [place], [address] Sodium [Moles/Vol] 130 mmol/L Low 133-145 [facility] Comment on above: Performed By: #### L 506.1001, L500.4050, L100.0100, L501.9520 #### [facility] [address] [place], [address] T PROT 7.1 g/dL Normal 5.9-8.[address] [facility] Comment on above: Performed By: #### L 506.1001, L500.4050, L100.0100, L501.9520 #### [facility] [address] [place], [address] Urea nitrogen [Mass/Vol] 15 mg/dL Normal 4-[address] [facility] Comment on above: Performed By: #### L 506.1001, L500.4050, L100.0100, L501.9520 #### [facility] [address] [place], [address] Eosinophil percentageOrdered By: Kyle Garcia on 04-01-2025 Eosinophils/100 WBC (Bld) 1.9 % 0-[address] [facility] Erythrocyte distribution wid th ratioOrdered By: Kyle Torresok on 04-01-2025 Erythrocyte distribution width (RBC) [Ratio] 13.5 % 11.6-14.[address] [facility] Erythrocyte distribution wid th standard deviationOrdered By: Kyle Jose on 04-01-2025 Erythrocyte distribution width (RBC) [Ratio] 44.0 fl High 35.1-43.[address] [facility] Glomerular filtration rate ( GFR) estimation/1.73 sq m using serum, plasma, or whole bOrdered By: Kyle Garcia on 04-01-2025 GFR/1.73 sq M.predicted among non-blacks MDRD (S/P/Bld) [Vol rate/Area] 69 mL/min/{1.73_m2} >[address] [facility] Comment on above: mL/min/1.73m2 CKD-EP I Creatinine Equation (2020) Hematocrit Auto (Bld) [Volum e fraction]Ordered By: Kyle Garcia on 04-01-2025 Hematocrit (Bld) [Volume fraction] 38.2 % 37-[address] [facility] Hemoglobin measurementOrdere d By: Kyle Garcia on 04-01-2025 Hemoglobin (Bld) [Mass/Vol] 13.1 g/dL 12.0-15.[address] [facility] Hepatitis Panel Acuteon - HEP B CORE,IgM Normal [facility] Comment on above: Result Comment: NEED TWO TUBES ONLY HAVE ONE Performed By: #### L 3000.0375 #### [facility] [address] [place], [address] HEP B SURF AG Normal [facility] Comment on above: Result Comment: NEED TWO TUBES ONLY HAVE ONE Performed By: #### L 3000.0375 #### [facility] [address] [place], [address] HEP C VIRUS AB Normal [facility] Comment on above: Result Comment: NEED TWO TUBES ONLY HAVE ONE Performed By: #### L 3000.0375 #### [facility] [address] [place], [address] HEPATITIS A-IgM Normal [facility] Comment on above: Result Comment: NEED TWO TUBES ONLY HAVE ONE Performed By: #### L 3000.0375 #### [facility] [address] [place], [address] Immature granulocytes/100 WB C Auto (Bld)Ordered By: Kyle Garcia on 04-01-2025 Immature granulocytes/100 WBC (Bld) 0.200 % 0.0-0.[address] [facility] Comment on above: IG% - Immature Granu locytes (promyelocytes, myelocytes and metamyelocytes) > 1% indicates that a LEFT SHIFT is Present. Laboratory - Chemistry and C hemistry - challengeOrdered By: Kyle Garcia on 04-01-2025 AST [Catalytic activity/Vol] 37 U/L High <[address] [facility] Comment on above: Hemolysis present, R esults could be affected. MCV (mean corpuscular volume ) determinationOrdered By: Kyle Garcia on 04-01-2025 MCV (RBC) [Entitic vol] 88.2 fL 81-99 [facility] Mean corpuscular hemoglobin (MCH) determinationOrdered By: Kyle Garcia on 04-01-2025 MCH (RBC) [Entitic mass] 30.3 pg 27.0-32.[address] [facility] Mean corpuscular hemoglobin concentration (MCHC) determinationOrdered By: Kyle Garcia on 04-01-2025 MCHC (RBC) [Mass/Vol] 34.3 g/dL 32-36 [facility] Mean platelet volume determi nationOrdered By: Kyle Garcia on 04-01-2025 Platelet mean volume (Bld) [Entitic vol] 8.9 fL 6.2-12.[address] [facility] Monocyte percentageOrdered B y: Kyle Garcia on 04-01-2025 Monocytes/100 WBC (Bld) 7.3 % 0-10 [facility] Neutrophil percentageOrdered By: Kyle Garcia on 04-01-2025 Neutrophils/100 WBC (Bld) 56.1 % 47-[address] [facility] Nucleated red blood cell per centageOrdered By: Kyle Garcia on 04-01-2025 Nucleated RBC/100 WBC (Bld) [Ratio] 0 % 0-[address] [facility] Platelet countOrdered By: David Garcia on 04-01-2025 Platelets (Bld) [#/Vol] 344 10*3/uL 150-[address] [facility] Potassium measurement (mass/ volume)Ordered By: Kyle Garcia on 04-01-2025 Potassium (Unsp spec) [Mass/Vol] 3.9 mmol/L 3.3-5.[address] [facility] Comment on above: Hemolysis present, R esults could be affected. RBC Auto (Bld) [#/Vol]Ordere d By: Kyle Garcia on 04-01-2025 RBC (Bld) [#/Vol] 4.33 10*6/uL 4.2-5.4 [facility] Serum creatinine measurement (mass/volume)Ordered By: Kyle Garcia on 04-01-2025 Creatinine [Mass/Vol] 0.88 mg/dL 0.70-1.20 [facility] Serum globulin measurementOr dered By: Kyle Garcia on 04-01-2025 Globulin (S) [Mass/Vol] 2.9 g/dL 2.2-4.2 [facility] Serum glucose measurement (m ass/volume)Ordered By: Kyle Garcia on 04-01-2025 Glucose [Mass/Vol] 96 mg/dL 70-99 [facility] Serum or plasma alanine major otransferase (ALT) measurementOrdered By: Kyle Garcia on 04-01-2025 ALT [Catalytic activity/Vol] 44 U/L High <[address] [facility] Serum or plasma albumin mili urement (mass/volume)Ordered By: Kyle Garcia on 04-01-2025 Albumin [Mass/Vol] 4.1 g/dL 3.4-4.8 [facility] Serum or plasma albumin/glob ulin mass ratioOrdered By: Kyle Garcia 04-01-2025 Albumin/Globulin [Mass ratio] 1.4 {ratio} 0.9-2.[address] [facility] Serum or plasma alkaline andrew sphatase measurementOrdered By: Kyle Garcia 04-01-2025 ALP [Catalytic activity/Vol] 76 U/L 35-[address] [facility] Serum or plasma calcium mili urement (mass/volume)Ordered By: Kyle Garcia 04-01-2025 Calcium [Mass/Vol] 9.0 mg/dL 7.6-11.0 [facility] Serum or plasma urea nitroge n measurement (mass/volume)Ordered By: Kyle Garcia 04-01-2025 Urea nitrogen [Mass/Vol] 15 mg/dL 4-[address] [facility] Sodium levelOrdered By: Kyle Garcia 04-01-2025 Sodium [Moles/Vol] 130 mmol/L Low 133-145 [facility] TSH DL <= 0.005 mIU/L QnOrde red By: Kyle Garcia on 04-01-2025 TSH Qn 0.730 uIU/mL 0.300-4.[address] [facility] Thyroid Stim Hormone (TSH)on 04-01-2025 TSH 0.730 uIU/mL Normal 0.300-4.[address] [facility] Comment on above: Performed By: #### L 506.1001, L500.4050, L100.0100, L501.9520 #### [facility] [address] [place], [place], [id number] Total proteinOrdered By: Kyle Garcia on 04-01-2025 Protein [Mass/Vol] 7.1 g/dL 5.9-8.4 [facility] Vitamin D,25 Hydroxyon 04-01 Vitamin D 25-OH 31.0 ng/mL Normal 30-[address] [facility] Comment on above: Result Comment: Mary min D Status Deficiency: <20 ng/mL (50nmol/L) Insufficiency: 20-30 ng/mL (50-75 nmol/L) Sufficiency: 30-100 ng/mL (75-250 nmol/L) Toxicity: >100 ng/mL (>250 nmol/L) Performed By: #### L 506.1001, L500.4050, L100.0100, L501.9520 #### [facility] [address] [place], [place], [id number] White blood cell (WBC) count Ordered By: Kyle Garcia on 04-01-2025 WBC (Bld) [#/Vol] 6.4 10*3/uL 4.4-11.0 [facility] Basophil percentageOrdered B y: Kyle Garcia on 04-10-2023 Chloride [Moles/Vol] 96 mmol/L 98-107 [facility] Glucose [Mass/Vol] 92 mg/dL 74-106 [facility] Potassium [Moles/Vol] 4.0 mmol/L 3.5-5.1 [facility] Sodium [Moles/Vol] 133 mmol/L 136-145 [facility] Laboratory - Chemistry and C hemistry - challengeOrdered By: Kyle Garcia on 04-10-2023 CO2 [Moles/Vol] 33.0 mmol/L 21.0-32.[address] [facility] Urea nitrogen/Creatinine [Mass ratio] 14.5 mg/mg 10-[address] [facility] No Panel InformationOrdered By: Kyle Garcia on 04-10-2023 Estimated GFR (MDRD) Amer 73 mL/min >[address] [facility] Comment on above: GFR Calc Estimated GFR (MDRD) Non-Af Amer 60 mL/min >[address] [facility] Comment on above: Non- GFR Calc Serum or plasma calcium mili urement (mass/volume)Ordered By: Kyle Garcia on 04-10-2023 Calcium [Mass/Vol] 8.8 mg/dL 8.5-10.1 [facility] Serum or plasma creatinine m easurement (mass/volume)Ordered By: Kyle Garcia on 04-10-2023 Creatinine [Mass/Vol] 0.97 mg/dL 0.55-1.02 [facility] Comment on above: The validity of the calculated GFR & GFRAA in patients over 70 years has not been determined. Clinical correlation is essential. Serum or plasma urea nitroge n measurement (mass/volume)Ordered By: Kyle Garcia on 04-10-2023 Urea nitrogen [Mass/Vol] 14 mg/dL - [facility] Thin prep Papanicolaou smear with manual screeningOrdered By: [facility] 04-10-2023 Thin prep Papanicolaou smear with manual screening 4 5- [facility] Absolute lymphocyte countOrd ered By: Kyle Garcia on 03-27-2023 Lymphocytes Auto (Unsp spec) [#/Vol] 2.06 10*3/uL 0.83-4.[address] [facility] Basophil percentageOrdered B y: Kyle Garcia on 03-27-2023 Basophils/100 WBC (Bld) 0.5 % 0-1 [facility] Bilirubin [Mass/Vol] 1.10 mg/dL 0.20-1.00 [facility] Comment on above: For patients on eltr ombopag therapy, use of Dimension [place] TBIL is not recommended. Chloride [Moles/Vol] 93 mmol/L 98-107 [facility] Eosinophils/100 WBC (Bld) 1.2 % 0-[address] [facility] Glucose [Mass/Vol] 95 mg/dL 74-106 [facility] Neutrophils (Bld) [#/Vol] 3.2 10*3/uL 2.0-7.[address] [facility] Neutrophils/100 WBC (Bld) 55.2 % 47-[address] [facility] Potassium [Moles/Vol] 3.3 mmol/L 3.5-5.1 [facility] Protein [Mass/Vol] 7.5 g/dL 6.4-8.2 [facility] Sodium [Moles/Vol] 134 mmol/L 136-145 [facility] WBC (Bld) [#/Vol] 5.8 10*3/uL 4.4-11.0 [facility] Blood erythrocytes count (nu mber/volume)Ordered By: Kyle Garcia on 03-27-2023 RBC (Bld) [#/Vol] 4.44 10*6/uL 4.2-5.4 [facility] Blood hemoglobin measurement (mass/volume)Ordered By: Kyle Garcia on 03-27-2023 Hemoglobin (Bld) [Mass/Vol] 13.5 g/dL 12.0-15.[address] [facility] Blood lymphocytes/100 leukoc ytesOrdered By: Kyle Garcia on 03-27-2023 Lymphocytes/100 WBC (Bld) 35.7 % 19-[address] [facility] Blood monocytes/100 leukocyt esOrdered By: Kyle Garcia on 03-27-2023 Monocytes/100 WBC (Bld) 6.9 % 0-10 [facility] Blood platelet mean volumeOr dered By: Kyle Garcia on 03-27-2023 Platelet mean volume (Bld) [Entitic vol] 9.4 fL 6.2-12.[address] [facility] Determination of erythrocyte mean corpuscular volume (MCV)Ordered By: Kyle Garcia on 03-27-2023 MCV (RBC) [Entitic vol] 92.1 fL 81-99 [facility] Hematocrit Auto (Bld) [Volum e fraction]Ordered By: Kyle Garcia on 03-27-2023 Hematocrit (Bld) [Volume fraction] 40.9 % 37-[address] [facility] Laboratory - Chemistry and C hemistry - challengeOrdered By: Kyle Garcia on 03-27-2023 ALP [Catalytic activity/Vol] 70 U/L 45-[address] [facility] ALT [Catalytic activity/Vol] 40 U/L 13-[address] [facility] CO2 [Moles/Vol] 33.0 mmol/L 21.0-32.[address] [facility] Globulin (S) [Mass/Vol] 3.8 g/dL 2.2-4.2 [facility] Urea nitrogen/Creatinine [Mass ratio] 14.3 mg/mg 10-[address] [facility] Laboratory - Hematology and Cell countsOrdered By: Kyle Garcia on 03-27-2023 Erythrocyte distribution width (RBC) [Entitic vol] 47.1 fL 35.1-43.[address] [facility] Erythrocyte distribution width (RBC) [Ratio] 14.0 % 11.6-14.[address] [facility] Immature granulocytes/100 WBC (Bld) 0.500 % 0.0-0.[address] [facility] Comment on above: IG% - Immature Granu locytes (promyelocytes, myelocytes and metamyelocytes) > 1% indicates that a LEFT SHIFT is Present. MCH (RBC) [Entitic mass] 30.4 pg 27.0-32.[address] [facility] Nucleated RBC/100 WBC (Bld) [Ratio] 0 % 0-[address] [facility] MCHC Auto (RBC) [Mass/Vol]Or dered By: Kyle Garcia on 03-27-2023 MCHC (RBC) [Mass/Vol] 33.0 g/dL 32-36 [facility] No Panel InformationOrdered By: Kyle Garcia on 03-27-2023 Estimated GFR (MDRD) Amer 66 mL/min >[address] [facility] Comment on above: GFR Calc Estimated GFR (MDRD) Non-Af Amer 55 mL/min >[address] [facility] Comment on above: Non- GFR Calc Thyroid Stimulating Hormone (TSH) 0.66 uIU/mL 0.358-3.[address] [facility] Vitamin D 25-Hydroxy 50.2 ng/mL [facility] Comment on above: Vitamin D 25(OH) Sta tus Range Deficiency <20 ng/mL (50nmol/L) Insufficiency 20 - 30 ng/mL (50 - 75 nmol/L) Sufficiency 30 - 100 ng/mL (75 - 250 nmol/L) Toxicity >100 ng/mL (>250 nmol/L) Platelets bldOrdered By: Kyle Garcia on 03-27-2023 Platelets (Bld) [#/Vol] 363 10*3/uL 150-[address] [facility] Serum or plasma albumin mili urement (mass/volume)Ordered By: Kyle Garcia on 03-27-2023 Albumin [Mass/Vol] 3.7 g/dL 3.2-5.0 [facility] Serum or plasma albumin/glob ulin mass ratioOrdered By: Kyle Garcia on 03-27-2023 Albumin/Globulin [Mass ratio] 1.0 {ratio} 0.9-2.[address] [facility] Serum or plasma calcium mili urement (mass/volume)Ordered By: Kyle Garcia on 03-27-2023 Calcium [Mass/Vol] 9.2 mg/dL 8.5-10.1 [facility] Serum or plasma creatinine m easurement (mass/volume)Ordered By: Kyle Garcia on 03-27-2023 Creatinine [Mass/Vol] 1.05 mg/dL 0.55-1.02 [facility] Comment on above: The validity of the calculated GFR & GFRAA in patients over 70 years has not been determined. Clinical correlation is essential. Serum or plasma urea nitroge n measurement (mass/volume)Ordered By: Kyle Garcia on 03-27-2023 Urea nitrogen [Mass/Vol] 15 mg/dL 7-[address] [facility] Thin prep Papanicolaou smear with manual screeningOrdered By: Kyle Garcia on 03-27-2023 Thin prep Papanicolaou smear with manual screening 24 U/L 15-[address] [facility] Thin prep Papanicolaou smear with manual screening 8 5-[address] [facility] CNOVon 01-23-2023 CNOV Office Visit (MARYJO) OMAIRA BILLINGSLEY ([id number]) 1950 F Date Time Provider Department 01/23/23 2:00 PM NICK BUENO During your visit today, we recorded the following information about you: Pulse Blood pressure Weight 77/minute 124/70 113.9 kg Nick Bueno APRN.CNP 01/23/2023 2:41 PM Signed This note was created using [employer]. Subjective Omaira Billingsley is a 72 year [...] that. Not concerned for covid because besides alevism she has not been anymore. She notes [...] no Smoking history/second hand smoke: no OTC [facility] cough medicine and a anithistmaine organic No antibiotic use in the last 60 days. ALLERGIES Aspirin Hives Comment:Other reaction(s): Ringing in ears heart palpitat House Dust Mite Unknown Insect Venom Unknown Iodine Unknown Latex Shortness of Breath Mold Unknown Peanut Unknown Shellfish Containin* Unknown Soy Protein Unknown [id number]-Blm-Rsi Red* Other: See Comments No family history [...] while you are sick so you don't bean picker a different virus, or infect others. [...] m: An (more content not included)... [facility] Absolute lymphocyte counton 03-20-2022 Lymphocytes Auto (Unsp spec) [#/Vol] 2.29 10*3/uL 0.83-4.[address] [facility] Work Phone: Basophil percentageon 2021 Basophils/100 WBC (Bld) 0.4 % 0-1 [facility] Work Phone: Bilirubin [Mass/Vol] 0.90 mg/dL 0.20-1.00 [facility] Work Phone: Comment on above: For patients on eltr ombopag therapy, use of Dimension [place] TBIL is not recommended. Chloride [Moles/Vol] 92 mmol/L 98-107 [facility] Work Phone: Eosinophils/100 WBC (Bld) 1.0 % 0-[address] [facility] Work Phone: Glucose [Mass/Vol] 92 mg/dL 74-106 [facility] Work Phone: Neutrophils (Bld) [#/Vol] 4.3 10*3/uL 2.0-7.[address] [facility] Work Phone: Neutrophils/100 WBC (Bld) 59.1 % 47-[address] [facility] Work Phone: Potassium [Moles/Vol] 3.9 mmol/L 3.5-5.1 [facility] Work Phone: Protein [Mass/Vol] 7.7 g/dL 6.4-8.2 [facility] Work Phone: Sodium [Moles/Vol] 131 mmol/L 136-145 [facility] Work Phone: WBC (Bld) [#/Vol] 7.3 10*3/uL 4.4-11.0 [facility] Work Phone: Blood erythrocytes count (nu mber/volume)on 03-20-2022 RBC (Bld) [#/Vol] 4.39 10*6/uL 4.2-5.4 [facility] Work Phone: Blood hemoglobin measurement (mass/volume)on 03-20-2022 Hemoglobin (Bld) [Mass/Vol] 13.4 g/dL 12.0-15.[address] [facility] Work Phone: Blood lymphocytes/100 leukoc yteson 03-20-2022 Lymphocytes/100 WBC (Bld) 31.2 % 19-[address] [facility] Work Phone: Blood monocytes/100 leukocyt eson 03-20-2022 Monocytes/100 WBC (Bld) 7.9 % 0-10 [facility] Work Phone: Blood platelet mean volumeon 03-20-2022 Platelet mean volume (Bld) [Entitic vol] 9.8 fL 6.2-12.[address] [facility] Work Phone: Determination of erythrocyte mean corpuscular volume (MCV)on 03-20-2022 MCV (RBC) [Entitic vol] 91.3 fL 81-99 [facility] Work Phone: Hematocrit Auto (Bld) [Volum e fraction]on 03-20-2022 Hematocrit (Bld) [Volume fraction] 40.1 % 37-[address] [facility] Work Phone: Laboratory - Chemistry and C hemistry - challengeon 03-20-2022 ALP [Catalytic activity/Vol] 68 U/L 45-[address] [facility] Work Phone: ALT [Catalytic activity/Vol] 38 U/L 13-[address] [facility] Work Phone: CO2 [Moles/Vol] 30.0 mmol/L 21.0-32.[address] [facility] Work Phone: Globulin (S) [Mass/Vol] 4.0 g/dL 2.2-4.2 [facility] Work Phone: Urea nitrogen/Creatinine [Mass ratio] 17.5 mg/mg 10-[address] [facility] Work Phone: Laboratory - Hematology and Cell countson 03-20-2022 Erythrocyte distribution width (RBC) [Entitic vol] 44.1 fL 35.1-43.[address] [facility] Work Phone: Erythrocyte distribution width (RBC) [Ratio] 13.1 % 11.6-14.[address] [facility] Work Phone: Immature granulocytes/100 WBC (Bld) 0.400 % 0.0-0.[address] [facility] Work Phone: Comment on above: IG% - Immature Granu locytes (promyelocytes, myelocytes and metamyelocytes) > 1% indicates that a LEFT SHIFT is Present. MCH (RBC) [Entitic mass] 30.5 pg 27.0-32.[address] [facility] Work Phone: Nucleated RBC/100 WBC (Bld) [Ratio] 0 % 0-[address] [facility] Work Phone: MCHC Auto (RBC) [Mass/Vol]on 03-20-2022 MCHC (RBC) [Mass/Vol] 33.4 g/dL 32-36 [facility] Work Phone: No Panel Informationon 03-20 Estimated GFR (MDRD) Amer 68 mL/min >[address] [facility] Work Phone: Comment on above: GFR Calc Estimated GFR (MDRD) Non-Af Amer 56 mL/min >[address] [facility] Work Phone: Comment on above: Non- GFR Calc Thyroid Stimulating Hormone (TSH) 0.77 uIU/mL 0.358-3.[address] [facility] Work Phone: Vitamin D 25-Hydroxy 42.3 ng/mL [facility] Work Phone: Comment on above: Vitamin D 25(OH) Sta tus Range Deficiency <20 ng/mL (50nmol/L) Insufficiency 20 - 30 ng/mL (50 - 75 nmol/L) Sufficiency 30 - 100 ng/mL (75 - 250 nmol/L) Toxicity >100 ng/mL (>250 nmol/L) Platelets bldon 03-20-2022 Platelets (Bld) [#/Vol] 392 10*3/uL 150-[address] [facility] Work Phone: Serum or plasma albumin mili urement (mass/volume)on 03-20-2022 Albumin [Mass/Vol] 3.7 g/dL 3.2-5.0 [facility] Work Phone: Serum or plasma albumin/glob ulin mass ratioon 03-20-2022 Albumin/Globulin [Mass ratio] 0.9 {ratio} 0.9-2.[address] [facility] Work Phone: Serum or plasma calcium mili urement (mass/volume)on 03-20-2022 Calcium [Mass/Vol] 9.4 mg/dL 8.5-10.1 [facility] Work Phone: Serum or plasma creatinine m easurement (mass/volume)on 03-20-2022 Creatinine [Mass/Vol] 1.03 mg/dL 0.55-1.02 [facility] Work Phone: Comment on above: The validity of the calculated GFR & GFRAA in patients over 70 years has not been determined. Clinical correlation is essential. Serum or plasma urea nitroge n measurement (mass/volume)on 03-20-2022 Urea nitrogen [Mass/Vol] 18 mg/dL 7-[address] [facility] Work Phone: Serum or plasma uric acid me asurement (mass/volume)on 03-20-2022 Urate [Mass/Vol] 7.6 mg/dL 2.6-6.[address] [facility] Work Phone: Comment on above: The drugs N-Acetylcy steine and Metamizole may falsely depress this assay. Thin prep Papanicolaou smear with manual screeningon 03-20-2022 Thin prep Papanicolaou smear with manual screening 18 U/L 15-[address] [facility] Work Phone: Thin prep Papanicolaou smear with manual screening 9 5-[address] [facility] Work Phone: CT LOWER EXTREMITY RIGHT WO CONTRASTon 11-22-2020 Patient Name: OMAIRA BILLINGSLEY Computed Tomography ACCESSION EXAM DATE/TIME PROCEDURE ORDERING PROVIDER [id number] 11/22/2020 11:[address] Low Ext w/o Contrast MD ROMAINE, SANA Right CPT code 51188 Reason For Exam (CT Low Ext w/o [...] Time: 11/22/2020 11:54 [facility] Work Phone: Sal, Kristina Incoming Radiology Results From [facility] - 11/22/2020 11:54 AM EDT [facility]: [id number] ACCESSION EXAM DATE/TIME PROCEDURE ORDERING PROVIDER [id number] 11/22/2020 11:[address] Low Ext w/o Contrast MD ROMAINE, SANA Right CPT code 58525 Reason For Exam (CT Low Ext w/o [...] the great toe. Report Dictated on Workstation: Orad --- Final --- Dictating Physician: MD ORTIZ ANTHONY J Signed Date and Time: 11/22/2020 11:53 am Signed by: MD ORTIZ ANTHONY J Transcribed Date and Time: 11/22/2020 11:54 [facility] Work Phone: [facility] Low Ext w/o Contrast Right Patient Name: OMAIRA BILLINGSLEY Computed Tomography ACCESSION EXAM DATE/TIME PROCEDURE ORDERING PROVIDER [id number] 11/22/2020 11:[address] Low Ext w/o Contrast MD ROMAINE, SANA Right CPT code 12178 Reason For Exam (CT Low Ext w/o [...] Transcribed Date and Time: 11/22/2020 11:54 Normal [facility] Work Phone: Clinical Summary: [facility] 07-[facility]-2020 [facility] Work Phone: Office Visit: Test Result, R m: 07-26-2020 NEGATED: Highlighted rowMRI (magnetic resonance imaging) history of the right ankle on 07/20/2020 at [facility] Work Phone: NEGATED: Highlighted rowxray history of the right foot on 07/12/2020 at [facility], of the right ankle on 07/07/2020 at [facility] Work Phone: Clinical Summary: HMSPatient IDon 07-12-2020 OOP Anna Marie hernandez [facility] Work Phone: Office Visit: New - visi t with practice, Rm: 9on 07-12-2020 NEGATED: Highlighted rowTobacco smoking status NHIS Tobacco smoking status [facility] Work Phone: NEGATED: Highlighted rowxray history of the right ankle on 07/07/2020 at [facility] Work Phone: Clinical Summary: Scanned Hi story Summaryon 07-11-2020 cause of , mother heart Cr ystal [facility] Work Phone: comments about allergies aspirin, latex, statins [facility] Work Phone: data entered by patient, Employer Name retired [facility] Work Phone: Data entered by patient, history of past surgeries Cataract surgery [facility] Work Phone: Data entered by patient, medication list lisinopril and hydrochlorothiazide- 10-12.5mg-2-1 tablet twice a dayvitamin d3-1,000 unit-1-1 tablet every dayvitamin c-1,656we-3-5-as neededmulti vitamin-Unknown Quveojjo-5-snaw a day [facility] Work Phone: data entered by patient, mother's medical history High blood pressure Cry stal [facility] Work Phone: data entered by patient, past medical history High blood pressure [facility] Work Phone: data entered by patient, social history, marital status [facility] Work Phone: Housing Type: apartment, house, correction, trailer, none house [facility] Work Phone: housing unit size (asthma environmental history, housing) (from single family to don't know) [address] [facility] Work Phone: mother of patient is alive or [facility] Work Phone: mother's medical history, comments Aortic calve needed to be replaced [facility] Work Phone: Number of dependent children No [facility] Work Phone: Web entered surgical history comments Tendonitis surgery on right elbow, [address] [facility] Work Phone: CR Ankle 3+ Views Righton CR Ankle 3+ Views Right Patient Name: OMAIRA BILLINGSLEY Diagnostic Radiology Exam Date/Time 07/07/2020 09:55:00 EDT Exam CR Ankle 3+ Views Right Ordering Physician [id number] BURCH Accession Number [id number] CPT4 Codes 73471 () Reason For Exam right ankle pain [...] JASON Transcribed Date and Time: 07/07/2020 10:05 [facility] ED Provider Noteon 0 ED Provider [...] on phone: None Gets together: None Attends alevism service: None Active member of club or [...] Patient condition is good PATIENT REFERRED TO: [place] [address] [address] [facility] [address] (Please note: Portions of this note were completed with a voice recognition program. Efforts were made to edit the dictations but occasionally words and phrases are mis-transcribed.) Form [id number] Jose Malgorzata, DO (electronically signed) Emergency Medicine Provider Jose Mcgarry DO 07/07/20 1647 Normal [facility] XR ANKLE RIGHT (MIN 3 VIEWS) on 07-07-2020 Patient Name: OMAIRA BILLINGSLEY ---Diagnostic Radiology--- Exam Date/Time 07/07/2020 09:55:00 EDT Exam CR Ankle 3+ Views Right Ordering Physician JOSE YANEZ Accession Number [id number] CPT4 Codes 67790 () Reason For Exam right ankle pain [...] JASON Transcribed Date and Time: 07/07/2020 10:05 [facility] Incoming Radiology Results From [facility] - 07/07/2020 10:05 AM EDT Patient Name: OMAIRA BILLINGSLEY ---Diagnostic Radiology--- Exam Date/Time 07/07/2020 09:55:00 EDT Exam CR Ankle 3+ Views Right Ordering Physician JOSE YANEZ Accession Number [id number] CPT4 Codes 16159 () Reason For Exam right ankle pain [...] JASON Transcribed Date and Time: 07/07/2020 10:05 [place], [place] Ophthalmic Eye Examon 2018 Ophthalmic Eye Exam DOCUMENT SIGNED ELECTRONICALLY BY Art Morrow ON 06/02/2019 09:54:47 [place] [address] [id number] THIS DOCUMENT WAS CREATED ON: 06/02/2019 09:54:40 AM BY: Art Jensen performed RELQW-Jtpu-hl Exam Date: Sunday, June 02, 2019 PATIENT NAME: OMAIRA BILLINGSLEY DATE: 1950 AGE: 68 GENDER: Female RACE: White REFERRING DOCTOR: Anne Camargo PRIMARY CARE PHYSICIAN: Chrsi Garcia The Patient states that she was [...] 18 20 DATE-TIME: 09:17 AM 09:17 AM SUPERVISOR BRAIDING: ken [email or web address] EXTERNAL EYE EXAM: LID: Good [...] CUP TO DISC: .2 .2 OPTIC DISC: [place] VITREOUS: PVD PVD MAC[place]: superior [...] 02 2019 9:54AM Eastern Standard Time Normal [facility] 2018 Ophthalmic Eye Exam DOCUMENT SIGNED ELECTRONICALLY BY Anne Camargo MD ON 11/27/2018 14:55:59 [place] [address] [address] [place] [address] [id number] THIS DOCUMENT WAS CREATED ON: 11/27/2018 02:55:50 PM BY: MD Liv Kingsley, COT performed Refraction GR[place] performed MZFHE-Nhuz-bi Exam Date: Tuesday, November 27, 2018 PATIENT NAME: OMAIRA BILLINGSLEY DATE: 1950 AGE: 68 GENDER: Female RACE: White PRIMARY CARE PHYSICIAN: Chris Garcia Chief Complaint/Reason For Visit: 68yoF, here for [...] PRESSURES: 18 18 DATE-TIME: 01:56 PM 01:56 [place]ORCELAIN ENAMELER: Isabel Hall EXTERNAL EYE EXAM: LID: Good [...] CUP TO DISC: .2 .2 OPTIC DISC: [place] VITREOUS: PVD PVD [place]: superior [...] 27 2018 2:56PM Eastern Standard Time Normal [facility] Vital Signs Date Time Vital Sign Value Performing Clinician Facility 07-07-2020 12:09-0400 BP Diastolic 65 mm[Hg] [place] 07-07-2020 12:09-0400 BP Systolic 127 mm[Hg] [facility] [place] [facility] [place] 07-07-2020 12:09-0400 Pulse (Heart Rate) 72 /min [facility] [place] [place] 07-07-2020 12:09-0400 Pulse Oximetry 98 % [facility] [place] [facility] [place] 07-07-2020 12:09-0400 Respiratory Rate 16 /min [facility] [place] [place] 07-07-2020 09:37-0400 Body Temperature 97.5 [degF] [facility] [place] [place] 07-07-2020 09:36-0400 BMI (Body Mass Index) 41.2 kg/m2 [facility] [place] [place] 07-07-2020 09:36-0400 Body weight 108.86 kg [facility] [place] 07-07-2020 09:36-0400 Height 162.6 cm [facility] [place] NEGATED: Highlighted [id number] 10:52-0500 BMI (Body Mass Index) 39.79 kg/m2 Jessica Lorence AT [facility] Work Phone: NEGATED: Highlighted [id number] 10:52-0500 Body weight 104.78 kg Jessica Lorence AT [facility] Work Phone: NEGATED: Highlighted [id number] 10:52-0500 Body weight 105 kg Jessica Lorence AT [facility] Work Phone: NEGATED: Highlighted [id number] 10:52-0500 Heart rate 2+ Jessica Lorence AT [facility] Work Phone: NEGATED: Highlighted [id number] 10:52-0500 Height 162.56 cm Jessica Lorence AT [facility] Work Phone: NEGATED: Highlighted [id number] 10:52-0500 Height 163 cm Jessica Lorence AT [facility] Work Phone: NEGATED: Highlighted [id number] 13:41-0500 BMI (Body Mass Index) 39.79 kg/m2 [facility] AT [facility] Work Phone: NEGATED: Highlighted [id number] 13:41-0500 Body weight 104.78 kg [facility] AT [facility] Work Phone: NEGATED: Highlighted [id number] 13:41-0500 Body weight 105 kg [facility] AT [facility] Work Phone: NEGATED: Highlighted [id number] 13:41-0500 BP Diastolic 0 mm[Hg] [facility] AT [facility] Work Phone: NEGATED: Highlighted [id number] 13:41-0500 BP [facility]stolic 0 mm[facility]Hg[facility] Work Phone: NEGATED: Highlighted [id number] 13:41-0500 Heart rate 2+ [facility] AT [facility] Work Phone: NEGATED: Highlighted [id number] 13:41-0500 Height 162.56 cm [facility] AT [facility] Work Phone: NEGATED: Highlighted [id number] 13:41-0500 Height 163 cm [facility] AT [facility] Work Phone: NEGATED: Highlighted [id number] 13:41-0500 Pulse (Heart Rate) 0 /min [facility] AT [facility] Work Phone: NEGATED: Highlighted [id number] 15:04-0500 BMI (Body Mass Index) 40.31 kg/m2 [facility] Work Phone: NEGATED: Highlighted [id number] 15:04-0500 Body weight 106.14 kg Marjan Lancehouse AT [facility] Work Phone: NEGATED: Highlighted [id number] 15:04-0500 Body weight 106 kg Marjan Lancehouse AT [facility] Work Phone: NEGATED: Highlighted [id number] 15:04-0500 BP Diastolic 0 mm[Hg] [facility] Work Phone: NEGATED: Highlighted [id number] 15:04-0500 BP Systolic 0 mm[Hg] [facility] Work Phone: NEGATED: Highlighted [id number] 15:04-0500 Heart rate 2+ [facility] Work Phone: NEGATED: Highlighted [id number] 15:04-0500 Height 162.56 cm [facility] Work Phone: NEGATED: Highlighted [id number] 15:04-0500 Height 163 cm [facility] Work Phone: NEGATED: Highlighted [id number] 15:04-0500 Pulse (Heart Rate) 0 /min [facility] Work Phone: Encounters Encounter Date Encounter Type Care Provider Facility Start: 05-08-2025 ambulatory Kyle Chi Jose Facility:[facility] Start: 05-06-2025 ambulatory Kyle Chi Jose Facility:[facility] Start: 04-28-2025 ambulatory Kyle Chi Jose Facility:[facility] Start: 04-15-2025 ambulatory Kyle Chi Jose Facility:[facility] Start: 04-10-2025 ambulatory Kyle Chi Jose Facility:[facility] Start: 04-01-2025 End: 04-01-[address] Kyle Garcia MD Work Phone: -Laboratory Phy Office 3rd Flr Start: 04-01-2025 End: 04-01-[address] Kyle Garcia MD -Laboratory Phy Office 3rd Flr Start: 04-01-2025 End: 04-01-2025 ambulatory Kyle Garcia Facility:[facility] Start: 04-10-2023 End: 04-10-[address] [facility] Work Phone: Start: 04-10-2023 End: 04-10-2023 Patient encounter procedure [facility]-Laboratory Work Phone: Start: 03-27-2023 End: 03-27-2023 Patient encounter procedure [facility]-Laboratory, Phy Office 3rd Flr Start: 01-23-2023 End: 01-23-2023 ambulatory Facility:[facility] Start: 05-05-2022 End: 05-05-[address] [facility] Work Phone: Start: 05-05-2022 End: 05-05-2022 Patient encounter procedure [facility]-Outpatient Breast Imaging Start: 04-25-2022 End: 04-25-[address] [facility] Work Phone: Start: 04-25-2022 End: 04-25-2022 Patient encounter procedure [facility]-Outpatient Breast Imaging Start: 03-20-2022 End: 03-20-2022 Patient encounter procedure [facility]-Laboratory, Phy Office 3rd Flr Start: 11-22-2020 End: 11-22-2020 Subsequent hospital visit by physician Sana Soto Work Phone: [facility] CT Scan Comment on above: Arrived Start: 08-27-2020 End: 08-28-2020 Patient encounter procedure Evan REYES Work Phone: [facility] Work Phone: Start: 07-26-2020 End: 07-26-2020 Patient encounter procedure Sana Soto MD Work Phone: [facility] Work Phone: Start: 07-07-2020 End: 07-07-2020 Emergency department patient visit Jose Mcgarry Work Phone: [facility] Comment on above: Plantar fascial fibr [...] Author Start: 09-27-2020 End: 09-27-[address] [facility] [place] [facility] Work Phone: Start: 09-17-2020 End: 09-17-[address] [facility] [place] [facility] Work Phone: Start: 08-27-2020 End: 08-27-[address] [facility] [place] [facility] Work Phone: Start: 08-19-2020 End: 08-19-[address] [facility] [place] [facility] Work Phone: Start: 08-13-2020 End: 08-13-[address] [facility] [place] [facility] Work Phone: Start: 07-26-2020 End: 07-26-[address] [facility] Work Phone: Start: 07-12-2020 End: 07-12-[address] [facility] Work Phone: Start: 07-12-2020 End: 07-12-2020 Mri any jt lower extrem w/o contrast matrl MRI right ankle without contrast [facility] Work Phone: Start: 07-12-2020 End: 07-12-2020 Radex foot complete minimum 3 views XR FOOT 3+ VWS-RT [facility] Work Phone: Start: 05-11-2020 Influenza vaccination Flu vaccine (#1) [place], [place] Start: 2016 Pneumococcal 65+ years Vaccine [...] Phone: Start: 1950 Creatinine measurement Creatinine monitoring [place], [place] Start: 1950 Hepatitis C screening Hepatitis C screen [facility] Work Phone: Start: 1950 Potassium monitoring Potassium monitoring [place], [place] Payers Date Payer Category Payer Self-pay [id number] 2016 Medicare [id number] 2016 Unknown [id number] 1950 Unknown [id number] [id number] Unknown [id number] [id number] [id number] Unknown [id number] 2.16.8 [id number] Unknown [id number] 2.16.8 [id number] Unknown [id number] 2.16.8 [id number] Unknown [id number] 2.16.8 [id number] Unknown [id number] 2.16.8 [id number] Unknown [id number] 2.16.8 [id number] Social History Date Type Detail Facility Start: 07-07-2020 Tobacco smoking status NHIS Never smoker [place] Start: 07-07-2020 Tobacco use and exposure Never used [place] Start: 07-07-2020 Alcohol intake Lifetime non-drinker (finding) [place] Start: 07-07-2020 History SDOH Alcohol Frequency 1 [place] Sex Assigned At Not on file [place] Exposure to SARS-CoV-2 (event) Not sure [place] Start: 07-26-2020 End: 08-28-2020 Assertion Unknown if ever smoked [facility] [place] [facility] Work Phone: Start: 1950 Sex Assigned At Female [facility] NEGATED: Highlighted rowStart: 07-12-2020 End: 07-12-[address] [facility] Work Phone: NEGATED: Highlighted rowStart: 07-12-2020 End: 07-12-2020 Details of drug misuse behavior Details of drug misuse behavior [facility] Work Phone: NEGATED: Highlighted rowStart: 07-12-2020 End: 07-12-[address] [facility] Work Phone: Progress note 01-23-2023 Note Date & Type Note Facility 01-23-2023 Note HNO ID: [id number] Author: Nick Bueno APRN.LITHOGRAPHIC ARTIST Service: ? Author Type: Nurse Practitioner Type: Progress Notes Filed: 01/23/2023 2:41 PM Note Text: This note was created using [employer]. Subjective Omaira Billingsley is a 72 year [...] that. Not concerned for covid because besides alevism she has not been anymore. She notes [...] Unknown Shellfish Containin* Unknown Soy Protein Unknown Tdnkffo-Kxt-Yia Red* Other: See Comments No family history [...] Medical Decision Making Level: 4 - Moderate [facility] Evaluation note Note Date & Type Note Facility Evaluation note No assessment information availa ble [facility] Work Phone: Reason for referral (narrative) Note Date & Type Note Facility Reason for referral (narrative) No reason for referral information available [facility] Work Phone: Summary Purpose Family History [...] sent through Care Everywhere. * Plantar Fasciitis (Montenegrin) documented in this encounter Assessments Diagnosis Plantar [...] section and content) DATE CREATED AUTHOR 11/27/2018 [facility] DATE CREATED AUTHOR AUTHOR'S ORGANIZ ATION 06/02/2019 [facility] DATE CREATED AUTHOR AUTHOR'S ORGANIZ ATION 11/25/2020 [facility] DATE CREATED AUTHOR AUTHOR'S ORGANIZ ATION 01/24/2023 [facility] DATE CREATED AUTHOR AUTHOR'S ORGANIZ ATION 04/18/2025 [facility] Reason for Visit (unrecogniz ed section and [...] BE BASED ON THE PRIMARY CLINICAL RECORDS. [facility]. provides no warranty or guarantee of the accuracy or completeness of information in this document.
[2025-04-18 11:09] LABS: Anion Gap 8 (5-15); BUN 15 mg/dL (4-19); BUN/Creat Ratio 16.5 RATIO (10-20); Calcium,Total 9.1 mg/dL (7.6-11.0); Carbon Dioxide 30.5 mmol/L (21.0-32.0); Chloride 92 mmol/L (98-108); Glucose 97 mg/dL (70-99); Potassium 4.5 mmol/L (3.3-5.1)
[2025-04-18 12:05] LABS: Osmolality, Serum 282 mOsm/KG (280-301)
[2025-04-18 12:16] LABS: Osmolality, Urine 302 mOsm/KG
== END | disposition home or self-care (01) ==
LOC: LAB 09:53
PROVIDERS: PCP Family Medicine Geriatric Medicine; Referring Provider Family Medicine Geriatric Medicine; Visit Provider Family Medicine Geriatric Medicine
DX: E87.1 Hypo-osmolality and hyponatremia (principal)
CPT/HCPCS: 36415; 80048; 83930; 83935; 84300

== ENCOUNTER → 2025-04-27 | Outpatient (CLI) | payer MEDICARE, OTHER, SELFPAY ==
[2025-04-27 10:19] LABS: Anion Gap 11 (5-15); BUN 20 mg/dL (4-19); BUN/Creat Ratio 20.3 RATIO (10-20); Calcium,Total 9.3 mg/dL (7.6-11.0); Carbon Dioxide 29.3 mmol/L (21.0-32.0); Chloride 97 mmol/L (98-108); Glucose 97 mg/dL (70-99); Potassium 3.9 mmol/L (3.3-5.1)
== END | disposition home or self-care (01) ==
LOC: LAB 08:57
PROVIDERS: PCP Family Medicine Geriatric Medicine; Referring Provider Family Medicine Geriatric Medicine; Visit Provider Family Medicine Geriatric Medicine
DX: I10 Essential (primary) hypertension (principal)
CPT/HCPCS: 36415; 80048

== ENCOUNTER → 2025-04-28 | Outpatient (CLI) | payer MEDICARE, OTHER, SELFPAY ==
--- NOTE | 2025-04-28 07:43 | US_ITS ---
PROCEDURE: ELASTOGRAPHY PARENCHYMA/ORGAN 04/28/2025 REASON FOR EXAM: FATTY LIVER, RIGHT KIDNEY MASS TECHNIQUE: ELASTOGRAPHY PARENCHYMA/ORGAN COMPARISON: None FINDINGS: Elastography was performed. KPA: 6.1 Velocity: 1.42 m/sec. Metavir score: F2 US/Elastography Parenchyma/Organ IMPRESSION: Mild hepatic fibrosis. Reading Location: [id number]
== END | disposition home or self-care (01) ==
LOC: US 07:39
PROVIDERS: PCP Family Medicine Geriatric Medicine; Referring Provider Family Medicine Geriatric Medicine; Visit Provider Family Medicine Geriatric Medicine
DX: K80.20 Calculus of gallbladder without cholecystitis without obstruction (principal); K76.0 Fatty (change of) liver, not elsewhere classified; N28.89 Other specified disorders of kidney and ureter
CPT/HCPCS: 76981

== ENCOUNTER → 2025-05-06 | Outpatient (CLI) | payer MEDICARE, OTHER, SELFPAY ==
--- NOTE | 2025-05-06 09:54 | NM_ITS ---
PROCEDURE: HEPATOBILLIARY IMG W/PHARM INT 05/06/2025 REASON FOR EXAM: GALLSTONE TECHNIQUE: Intravenous Choletec with planar imaging of the abdomen. RADIOPHARMACEUTICAL: Intravenous administration of 5.1 mCi technetium 99 M mebrofenin. COMPARISON: Right upper quadrant abdominal ultrasound of 04/10/2025. FINDINGS: There is good uptake of the radiopharmaceutical by the liver. Small bowel activity is seen by the 10 minute film No definite gallbladder filling is seen through the 120 minute timeframe. NM/Hepatobilliary Img w/Pharm Int IMPRESSION: 1. No definite gallbladder filling is seen, through 120 minutes. In the correc t clinical circumstance, this is consistent with cholecystitis. 2. No evidence of common duct obstruction; the small bowel activity is seen by the 10 minute film. 3. Satisfactory hepatic uptake and excretion is seen. Reading Location: [place] [address]
== END | disposition home or self-care (01) ==
LOC: NM 09:51
PROVIDERS: PCP Family Medicine Geriatric Medicine; Referring Provider Family Medicine Geriatric Medicine; Visit Provider Family Medicine Geriatric Medicine
DX: K80.20 Calculus of gallbladder without cholecystitis without obstruction (principal); K76.0 Fatty (change of) liver, not elsewhere classified; N28.89 Other specified disorders of kidney and ureter
CPT/HCPCS: 78227; A9537

== ENCOUNTER → 2025-05-08 | Outpatient (CLI) | payer MEDICARE, OTHER, SELFPAY ==
--- NOTE | 2025-05-08 07:57 | CT_ITS ---
PROCEDURE: ABDOMEN/PELVIS WITH CONTRAST 05/08/2025 REASON FOR EXAM: RIGHT KIDNEY MASS TECHNIQUE: Procedure Code: [id number] Modality: CT Procedure: ABDOMEN/PELVIS WITH CONTRAST Coronal and Sagittal reconstruction series were provided. CONTRAST: Isovue 370 VOLUME: 100 mL One or more dose reduction techniques were used (e.g., Automated exposure control, adjustment of the mA and/or kV according to patient size, use of iterative reconstruction technique. RADIATION DOSE SUMMARY: CTDlvol: 20.05 mGy DLP: 1388.19 mGycm COMPARISON: Abdominal ultrasound dated April 10, 2025. FINDINGS: Lung bases: Minimal increased linear markings at the lung bases suggestive of linear scarring. Liver: Diffuse fatty infiltration. Gallbladder: Multiple gallstones. The gallbladder is mildly distended. Spleen: Normal size. Pancreas: Diffuse fatty atrophy. Adrenals: Unremarkable Kidneys: Right renal cysts. The largest cyst measures 3.6 cm by 4.3 cm. No solid mass is seen. Bladder: The bladder is almost empty. Reproductive Organs: Enlarged fibroid uterus. Bowel: Colonic diverticulosis without diverticulitis. Appendix: The appendix is not identified. There is no inflammatory process identified in the right lower quadrant to suggest appendicitis. Lymph nodes: Unremarkable. Vasculature: Mild diffuse atherosclerotic calcifications are noted. Peritoneum / Retroperitoneum: Unremarkable Bones: Degenerative changes of the spine. CT/Abdomen/Pelvis WITH Contrast IMPRESSION: Fatty infiltration of the liver. Multiple gallstones. Right renal cysts. Enlarged fibroid uterus. Reading Location: [id number]
== END | disposition home or self-care (01) ==
LOC: CT 07:56
PROVIDERS: PCP Family Medicine Geriatric Medicine; Referring Provider Family Medicine Geriatric Medicine; Visit Provider Family Medicine Geriatric Medicine
DX: N28.89 Other specified disorders of kidney and ureter (principal); K80.20 Calculus of gallbladder without cholecystitis without obstruction; K76.0 Fatty (change of) liver, not elsewhere classified
CPT/HCPCS: 74177; Q9967

== ENCOUNTER → 2025-05-13 | Outpatient (CLI) | payer MEDICARE, OTHER, SELFPAY ==
[2025-05-13 19:24] LABS: AST(SGOT) 30 U/L (<=31); Alanine Aminotransfer ALT/SGPT 44 U/L (<=34); Albumin, Serum 4.2 g/dL (3.4-4.8); Alkaline Phosphatase 84 U/L (35-104); Anion Gap 12 (5-15); BUN 18 mg/dL (4-19); BUN/Creat Ratio 17.4 RATIO (10-20); Calcium,Total 9.6 mg/dL (7.6-11.0); Carbon Dioxide 27.5 mmol/L (21.0-32.0); Chloride 98 mmol/L (98-108); Globulin 3.0 g/dL (2.2-4.2); Glucose 99 mg/dL (70-99); Potassium 4.0 mmol/L (3.3-5.1)
[2025-05-14 01:05] LABS: Xtra Tube Kwok EXTRA TUBE
== END | disposition home or self-care (01) ==
LOC: POLAB3 17:05
PROVIDERS: PCP Family Medicine Geriatric Medicine; Visit Provider Family Medicine Geriatric Medicine
DX: I10 Essential (primary) hypertension (principal)
CPT/HCPCS: 36415; 80053